=== PATIENT | female | born 1965 | race Caucasian/White ===

== ENCOUNTER 2016-06-11 18:28 | Inpatient (IN) | payer OTHER ==
[~2016-06-11] VITALS: Ht 149.9 cm; Wt 104.3 kg
[~2016-06-11 18:28] MED LIST: ANBESOL12 ML AD; BENTYL 10 MG CA10 MG PO; BENTYL10 MG PO; BENTYL20 MG PO; BENZONATATE100 MG PO; CATAPRES 0.1MG0.1 M1 PO; CITRATE OF1.75 GM/30 PO; CLEOCIN HCL300 MG PO; CLONIDINE0.1 MG PO; COMPAZINE10 MG PO; CYMBALTA 20 MG20 MG PO; CYMBALTA60 M1 PO; DULOXETINE30 MG PO; FLEXERIL10 MG PO; HYDROXYZINE50 MG PO; KEFLEX500 MG PO; LASIX20 MG PO; LEVSIN/SL0.125 MG SL; LOTRISONE CREAM45 GM TOP; MACROBID100 MG PO; METFORMIN500 MG PO; MIRALAX17 GM PO; NABUMETONE500 MG PO; NEOMYCIN-POLYMY10 ML AD; NORFLEX100 MG PO; NUCYNTA100 MG PO; NUCYNTA50 MG PO; NYSTATIN100000 U/2 TOP; ONDANSETRON HYDR4 MG PO; OXYCODONE5 MG PO; PANTOPRAZOLE SO40 M1 PO; PERCOCET 325 MG1 TA2 PO; PROTONIX 20MG T20 MG PO; QUETIAPINE FUM100 MG PO; QUETIAPINE FUM200 MG PO; REGLAN10 MG PO; SEROQUEL 100MG100 MG PO; SEROQUEL300 MG PO; TESSALON PERLE100 M1 PO; TESSALON PERLE100 MG PO; TRAMADOL50 MG PO; TRAZODONE50 MG PO; VISTARIL50 M1 PO; VISTARIL50 MG PO; ZOFRAN ODT4 MG PO; ZOFRAN4 M1 PO; ZOFRAN4 M1 SL
--- NOTE | 2016-06-11 18:40 | NUR ---
PT TO ED "FOR ADMISSION FOR CELLULITIES, THEY WANTED TO ADMIT ME EARLIER BUT I DIDNT HAVE TIME SO NOW IM HERE" PT PRESENTS WITH BILATERAL LOWER LEG REDNESS, SWELLING AND PAIN. PT DENIES FEVER, SOB, CURRIE, REPORTING SHE HAS HAD LEG SWELLING AND REDNESS FOR "A LONG TIME BUT I GUESS THEY WANTED TO ADMIT ME TODAY" PT REQUESTING A "PRIVATE ROOM UPSTAIRS, AND I NEED TO BE DIRECTLY ADMITTED I CANT WAIT, DIDNT YOU KNOW I WAS COMING?" PT EDUCATED ON ER PROCESS, DEESCALATED IN TRIAGE. PT REQUESTING TO ONLY SEE DR. ARAIZA.
--- NOTE | 2016-06-11 20:30 | NUR ---
PT WALKING AROUND BY CAREY A, IN NAD
--- NOTE | 2016-06-11 21:07 | ED UPPER/LOWER EXTREMITY COMPL ---
History of Present Illness General Chief Complaint: Lower Extremity Problems Stated Complaint: STATES HERE TO BE ADMITTED FOR BILAT LE CELLULITIS Source: patient Exam Limitations: no limitations Vital Signs & Intake/Output Vital Signs & Intake/Output Vital Signs Date Time Temp Pulse Resp B/P Pulse O2 O2 Flow FiO2 Ox Delivery Rate 06/11 2100 Room Air 06/11 1839 98.3 89 18 124/74 99 Room Air ED Intake and Output 06/12 0000 06/11 1200 Intake Total 0 Output Total Balance 0 Intake, Oral 0 Patient 230 lb Weight Allergies Coded Allergies: Sulfa (Sulfonamide Antibiotics) (Intermediate, RASH, BUT OK WITH BACTRIM ) cephalexin (From Keflex) (Intermediate, RASH/ANKLE SWELLING 06/11/16) influenza virus vaccine tv 2013-(18-49 yrs),rcmb (From Flublok) (Intermediate, RASH/SWELLING 06/11/16) pneumococcal vaccine (From Pneumovax 23) (Intermediate, RASH/SWELLING 06/11/16) acetaminophen (From Tylenol) (Severe, INCREASES LIVER ENZYMES 06/11/16) erythromycin base (Intermediate, GI UPSET 06/11/16) ibuprofen (Intermediate, GI UPSET 06/11/16) ketorolac (From Toradol) (Intermediate, GI UPSET 06/11/16) naproxen (Intermediate, GI UPSET 06/11/16) Reconcile Medications Benzonatate (Tessalon Perle) 100 MG CAPSULE 1 CAP PO TID PRN COUGH Dicyclomine Hydrochloride (Bentyl) 10 MG CAPSULE 20 MG PO TID ABD CRAMPING ( Reported) Duloxetine HCl (Cymbalta) 60 MG CAPSULE.DR 2 CAP PO QPM DEPRESSION (Reported) Furosemide (Lasix) 40 MG TABLET 1 TAB PO BID DIURETIC (Reported) Hydroxyzine Pamoate (Vistaril) 50 MG CAPSULE 2 CAP PO TID ANXIETY (Reported) Insulin Glargine,Hum.rec.anlog (Lantus Solostar) 100 UNIT/ML (3 ML) INSULN.PEN 10 UNIT SC QAM DM (Reported) Insulin Glargine,Hum.rec.anlog (Lantus Solostar) 100 UNIT/ML (3 ML) INSULN.PEN 15 UNITS SC QPM DM (Reported) Metformin HCl (Glucophage) 1,000 MG TABLET 1 TAB PO BID DM (Reported) Methadone HCl 10 MG/ML ORAL.CONC 75 MG PO DAILY CHRONIC PAIN (Reported) Neomycin/Polymyxin B Sulf/Hc (Wjwjjdad-Yhjhziime-Lt Ear Soln) 3.5 MG/ML-10,000 UNIT/ML-1 % SOLUTION 4 DROP AD TID PRN EAR INFECTION Pantoprazole Sodium 40 MG TABLET.DR 1 TAB PO DAILY AC GI (Reported) Potassium Chloride 10 MEQ TABLET.ER 1 TAB PO BID SUPPLEMENT (Reported) Quetiapine Fumarate 400 MG TABLET 1 TAB PO QPM SLEEP/MENTAL HEALTH (Reported) Quetiapine Fumarate 100 MG TABLET 1 TAB PO QAM MENTAL HEALTH (Reported) Trazodone HCl 150 MG TABLET 2 TAB PO QHS SLEEP/MENTAL HEALTH (Reported) Triage Note: PT TO ED "FOR ADMISSION FOR CELLULITIES, THEY WANTED TO ADMIT ME EARLIER BUT I DIDNT HAVE TIME SO NOW IM HERE" PT PRESENTS WITH BILATERAL LOWER LEG REDNESS, SWELLING AND PAIN. PT DENIES FEVER, SOB, CURRIE, REPORTING SHE HAS HAD LEG SWELLING AND REDNESS FOR "A LONG TIME BUT I GUESS THEY WANTED TO ADMIT ME TODAY" PT REQUESTING A "PRIVATE ROOM UPSTAIRS, AND I NEED TO BE DIRECTLY ADMITTED I CANT WAIT, DIDNT YOU KNOW I WAS COMING?" PT EDUCATED ON ER PROCESS, DEESCALATED IN TRIAGE. PT REQUESTING TO ONLY SEE DR. ARAIZA. Triage Nurses Notes Reviewed? yes Onset: Gradual Duration: week(s): (3-4) Timing: recent history Severity: moderate Pain/Injury Location: Bilateral: Knee. No Modifying Factors: none HPI: 51-year-old female with history of diabetes who presents to the ER chief complaint of bilateral lower 70 cellulitis with open wounds. She states she was seen at the wound care center and told by Dr. Smith vascular surgery to be admitted to the hospital. She is recently status post completion of outpatient antibiotics clindamycin. Denies any fever or chills. Her sugar has been hard to maintain. Patient states that she has increasing pain. She does take liquid methadone daily from the [facility]. Past History Travel History Traveled to [place] past 21 day No Medical History Any Pertinent Medical History? 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 No Review of Systems Review of Systems Constitutional: Denies: chills, fever. EENTM: Reports: no symptoms. Respiratory: Denies: cough, short of breath. Cardiovascular: Denies: chest pain. Gastrointestinal/Abdominal: Denies: abdominal pain. Genitourinary: Reports: no symptoms. Musculoskeletal: Reports: no symptoms. Skin: Reports: no symptoms. Neurological/Psychological: Reports: no symptoms. Hematologic/Endocrine: Denies: bruising, bleeding, polyuria, polydipsia. Immunological: Denies: splenectomy. All Other Systems: Reviewed and Negative Physical Exam Physical Exam General Appearance: well developed/nourished, alert, awake, mild distress Head: atraumatic Eyes: Bilateral: PERRL, EOMI. Ears, Nose, Throat: normal pharynx, normal ENT inspection, hearing grossly normal Neck: normal inspection, supple Cardiovascular/Respiratory: regular rate/rhythm Peripheral Pulses: 2+ radial (R), 2+ radial (L) Gastrointestinal: SOFT NONTENDER, OBESE Back: normal inspection Leg Left: swelling, tenderness, CELLULITIC Leg Right: swelling, tenderness, CELLULITIC Hip Left: normal range of motion Hip Right: normal range of motion Knee Left: normal range of motion Knee Right: normal range of motion Neurologic/Tendon: normal sensation, normal motor functions, normal tendon functions Skin: intact, normal color, warm/dry Lymphatic: no anterior cervical luisa Progress Differential Diagnosis: cellulitis, UNCONTROLLED DM, CHRONIC LE WOUNDS Plan of Care: Orders Procedure Date/time Status Consistent Carbohydrate 3 06/12 B Active Saline Lock 06/11 2310 Active Pathway - chart 06/11 231 Active House Staff 06/11 231 Active Patient Data 06/11 2233 Active Admit to inpatient 06/12 2223 Active Code Status 06/12 2223 Complete Code Status 06/12 2223 Active EKG 06/11 2154 Active BLOOD CULTURE 06/11 2117 Active URINALYSIS 06/11 2117 Active COMPREHENSIVE METABOLIC PANEL 06/11 2117 Complete CBC WITHOUT DIFFERENTIAL 06/11 2117 Complete Intake & Output 06/11 2054 Active Current Medications Sig/Melody Start time Last Medication Dose Stop Time Status Admin Cefazolin Sodium 1,000 MG IQ8 06/12 0800 UNVr (Kefzol-Ancef Inj) Heparin Sodium 5,000 UNIT Q8 06/12 0600 AC (Porcine) Morphine Sulfate 2 MG Q4P PRN 06/11 231 AC (Morphine) Laboratory Tests 06/11/162200: Anion Gap 10, Estimated GFR 37 L, BUN/Creatinine Ratio 16.7, Glucose 137 H, Calcium 8.4, Total Bilirubin 0.3, AST 62 H, ALT 66 H, Alkaline Phosphatase 113 , Total Protein 7.2, Albumin 3.7, Globulin 3.5, Albumin/Globulin Ratio 1.1, CBC w Diff NO MAN DIFF REQ, RBC 4.02 L, MCV 81.4, MCH 26.6 L, RDW 13.9, MPV 6.7 L , Gran % 53.7, Lymphocytes % 36.9, Monocytes % 6.7, Eosinophils % 2.5, Basophils % 0.2, Absolute Granulocytes 3.2, Absolute Lymphocytes 2.2, Absolute Monocytes 0.4, Absolute Eosinophils 0.1, Absolute Basophils 0, PUBS MCHC 32.7 L Microbiology 06/11 2213 BLOOD: Blood Culture - RECD 06/11 2200 BLOOD: Blood Culture - RECD Initial ED EKG: NSR Departure Departure Time of Disposition: 2225 Disposition: STILL A PATIENT Condition: Stable Clinical Impression Primary Impression: Cellulitis Referrals: ELIZABETH PASTOR MD (PCP/Family) Departure Forms: Customer Survey General Discharge Information Admission Note Spoke With: LYNN CAICEDO MD Documentation of Exam: Documentation of any treatments & extenuating circumstances including Concerns Regarding Discharge (functional status, medication knowledge or non-compliance, living conditions, etc.) that warrant an admission rather than observation: [IV ABX (PATIENT FAILED OUTPATIENT ABX), WOUND CARE, WOUND CARE CONSULT, DIABETIC MANAGEMENT, CONSIDER VASCULAR CONSULT]
[2016-06-11] MEDS ORDERED: BENTYL10 M1 PO (21:32)
[2016-06-11] MEDS ORDERED: LASIX40 M1 PO (21:33)
[2016-06-11] MEDS ORDERED: METHADONE10 MG/1 M2 PO (21:37)
[2016-06-11] MEDS ORDERED: QUETIAPINE FUM400 M1 PO (21:38)
[2016-06-11] MEDS ORDERED: QUETIAPINE FUM100 M1 PO (21:38)
[2016-06-11] MEDS ORDERED: POTASSIUM CHLO10 ME4 PO (21:40)
[2016-06-11] MEDS ORDERED: TRAZODONE HCL150 M1 PO (21:41)
[2016-06-11] MEDS ORDERED: LANTUS SOL100 UNIT/1 SC ×2 (21:42→21:43)
[2016-06-11] MEDS ORDERED: GLUCOPHAGE1000 M1 PO (21:44)
--- NOTE | 2016-06-11 22:05 | NUR ---
LABS DRAWN AND SENT
[2016-06-11 22:09] LABS: ABSOLUTE BASOPHIL COUNT 0 /CUMM (0.0-0.2); ABSOLUTE EOSINOPHIL COUNT 0.1 /CUMM (0.0-0.7); ABSOLUTE GRANULOCYTE CT 3.2 /CUMM (1.4-6.5); ABSOLUTE LYMPH COUNT 2.2 /CUMM (1.2-3.4); ABSOLUTE MONOCYTE COUNT 0.4 /CUMM (0.10-0.60); BASOPHIL % 0.2 % (0.0-2.0); EOSINOPHIL % 2.5 % (0-5); GRANULOCYTE % 53.7 % (42.2-75.2); HEMATOCRIT 32.7 % (37-47); MEAN CORPUSCULAR HGB 26.6 PG (27.0-31.0); MEAN CORPUSCULAR HGB CONC 32.7 G/DL (33.0-37.0); MEAN CORPUSCULAR VOLUME 81.4 FL (81.0-99.0); MEAN PLATELET VOLUME 6.7 FL (7.4-10.4); PLATELET COUNT 200 /CUMM (130-400); RBC DISTRIBUTION WIDTH 13.9 % (11.5-14.5); RED BLOOD CELL CT 4.02 /CUMM (4.20-5.40); WHITE BLOOD CELL COUNT 5.9 /CUMM (4.8-10.8)
--- NOTE | 2016-06-11 23:09 | NUR ---
BED ASSIGNMENT [id number]
--- NOTE | 2016-06-11 23:09 | History & Physical ---
DMITRI CACERES 06/11/16 3109: General Information and HPI MD Statement: I have seen and personally examined LES MOREL and documented this H&P. The patient is a 51 year old F who presented with a patient stated chief complaint of bilateral lower extremity redness, swelling and pain. Source of Information: patient, old records Exam Limitations: no limitations History of Present Illness: This is a 51-year-old female with past medical history significant for colitis, diverticulitis, pancreatitis, esophagitis, insomnia, GERD, abdominal cramps, depression, anxiety, chronic bilateral lower extremity edema, diabetes mellitus, opioid abuse, chronic back pain chronic pain on methadone presented to emergency department with chief complaint of bilateral lower extremity redness, swelling, pain worsening for 2 days. According to the patient, she was treated for cellulitis 3 weeks ago with outpatient antibiotics clindamycin for 10 days. She has been following Dr. Albarran at [facility] [place] for chronic bilateral lower extremity edema. She was supposed to use compression stockings, however she is not using them because of discomfort. She was seen by Dr. Preston, the vascular surgeon this morning for chronic lower extremity edema and she was advised to go to ER to get IV antibiotics for cellulitis as she failed outpatient therapy with clindamycin. According to the patient, she has ongoing chronic bilateral lower extremity edema associated with redness, swelling, throbbing pain associated with tingling sensation for 3 weeks. She noticed 2 new wounds which were draining. She denies any fever, chills. She denies any trauma. However she does report scratching her lower legs. off note she was treated for cellulitis with antibiotics as an outpatient 3 times in the past year. She denies any chest pain, racing of heart, shortness of breath, cough, headache , numbness, tingling sensation, weakness or sensory changes, nausea, vomiting, abdominal pain, change in bladder or bowel habits. She denies any sick contacts or travel history. She denies any trauma, injuries, accidents. Allergies/Medications Allergies: Coded Allergies: Sulfa (Sulfonamide Antibiotics) (Intermediate, RASH, BUT OK WITH BACTRIM ) cephalexin (From Keflex) (Intermediate, RASH/ANKLE SWELLING 06/11/16) influenza virus vaccine tv 2012-(18-49 yrs),rcmb (From Flublok) (Intermediate, RASH/SWELLING 06/11/16) pneumococcal vaccine (From Pneumovax 23) (Intermediate, RASH/SWELLING 06/11/16) acetaminophen (From Tylenol) (Severe, INCREASES LIVER ENZYMES 06/11/16) erythromycin base (Intermediate, GI UPSET 06/11/16) ibuprofen (Intermediate, GI UPSET 06/11/16) ketorolac (From Toradol) (Intermediate, GI UPSET 06/11/16) naproxen (Intermediate, GI UPSET 06/11/16) Compliance With Home Meds: GOOD Past History Travel History Traveled to [place] past 21 day No Medical History Neurological: NONE EENT: NONE Cardiovascular: NONE Respiratory: pneumonia Gastrointestinal: colitis, diverticulitis, pancreatitis, ACID REFLUX C DIFF LA grade B esophagitis, erosive gastropathy Hepatic: NONE Renal: NONE Musculoskeletal: NONE Psychiatric: NARCOTIC ABUSE CHRONIC PAIN MANAGEMENT Endocrine: NONE Blood Disorders: NONE Cancer(s): NONE 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 EENTM: Denies: no symptoms. Cardiovascular: Reports: edema. Denies: chest pain, orthopena, palpitations, peripheral edema. Respiratory: Denies: cough, hemoptysis, orthopnea, short of breath, sputum production, stridor, wheezing. GI: Denies: abdominal pain, bloating, constipation, diarrhea, nausea. Genitourinary: Denies: discharge, dysuria, frequency, hematuria. Musculoskeletal: Reports: back pain. Skin: Reports: change in skin color, erythema, lesions. Neurological/Psychological: Denies: anxiety, depressed, dementia, headache, numbness. Exam & Diagnostic Data Last 24 Hrs of Vital Signs/I&O Vital Signs Date Time Temp Pulse Resp B/P Pulse O2 O2 Flow FiO2 Ox Delivery Rate 06/12 0152 97.8 102 20 110/70 96 Room Air 06/11 2100 Room Air 06/11 1839 98.3 89 18 124/74 99 Room Air Intake & Output 06/12 0800 06/12 0000 06/11 1600 Intake Total 0 Output Total Balance 0 Intake, Oral 0 Patient 104.326 kg 104.326 kg Weight Physical Exam General Appearance Alert, Oriented X3, Cooperative, No Acute Distress Skin No Rashes, No Breakdown HEENT Atraumatic, PERRLA, EOMI, Mucous Membr. moist/pink Neck Supple, No JVD Lymphatic Axillary nl, Cervical nl Cardiovascular Regular Rate, Normal S1, Normal S2, No Murmurs Lungs Clear to Auscultation, Normal Air Movement Abdomen Normal Bowel Sounds, Soft, No Tenderness Neurological Strength at 5/5 X4 Ext, Normal Tone, Sensation Intact, Cranial Nerves 3-12 NL, Reflexes 2+ Extremities No Clubbing, No Cyanosis, Normal Pulses, bilateral lower extremity edema, redness, swelling, warmth. Vascular Normal Pulses, Pulses Symmetrical Last 24 Hrs of Labs/Toby: Laboratory Tests 06/12/16 0055: Urine Color STRAW, Urine Clarity CLEAR, Urine pH 7.0, Ur Specific [place] 1.010, Urine Protein NEG, Urine Ketones NEG, Urine Nitrite NEG, Urine Bilirubin NEG, Urine Urobilinogen 0.2, Ur Leukocyte Esterase NEG, Ur Microscopic EXAM NOT REQUIRED, Urine Hemoglobin NEG, Urine Glucose NEG 06/11/162200: Anion Gap 10, Estimated GFR 37 L, BUN/Creatinine Ratio 16.7, Glucose 137 H, Lactic Acid 2.3 H, Calcium 8.4, Iron 56, TIBC 346, Ferritin 19.3, Total Bilirubin 0.3, AST 62 H, ALT 66 H, Alkaline Phosphatase 113, Total Protein 7.2 , Albumin 3.7, Globulin 3.5, Albumin/Globulin Ratio 1.1, CBC w Diff NO MAN DIFF REQ, RBC 4.02 L, MCV 81.4, MCH 26.6 L, RDW 13.9, MPV 6.7 L, Gran % 53.7, Lymphocytes % 36.9, Monocytes % 6.7, Eosinophils % 2.5, Basophils % 0.2, Absolute Granulocytes 3.2, Absolute Lymphocytes 2.2, Absolute Monocytes 0.4, Absolute Eosinophils 0.1, Absolute Basophils 0, PUBS MCHC 32.7 L Microbiology 06/11 2213 BLOOD: Blood Culture - RECD 06/11 2200 BLOOD: Blood Culture - RECD Assessment/Plan Assessment: This is a 51-year-old female with past medical history significant for colitis, diverticulitis, pancreatitis, esophagitis, insomnia, GERD, abdominal cramps, depression, anxiety, chronic bilateral lower extremity edema, diabetes mellitus, opioid abuse, chronic back pain chronic pain on methadone presented to emergency department with chief complaint of bilateral lower extremity redness, swelling, pain worsening for 2 days. According to the patient, she was treated for cellulitis 3 weeks ago with outpatient antibiotics clindamycin for 10 days. She has been following Dr. Albarran at [facility] for chronic bilateral lower extremity edema. She was supposed to use compression stockings, however she is not using them because of discomfort. She was seen by Dr. Preston, the vascular surgeon this morning for chronic lower extremity edema and she was advised to go to ER to get IV antibiotics for cellulitis as she failed outpatient therapy with clindamycin. Vitals on admission-afebrile, heart rate 89, respiratory rate 18, blood pressure 124/74, saturating at 99% on room air. Labs-WBC 5.9, hemoglobin 10.7. Electrolytes are normal. Creatinine 1.5. Problem list 1. Cellulitis 2. Depression 3. Anxiety 4. Chronic lower extremity edema 5. Diabetes mellitus 6. Chronic pain on methadone 7. Insomnia 8. gerd Cellulitis Patient presented with chronic bilateral lower extremity edema associated with redness, swelling, worsening pain for 2 weeks. She failed outpatient treatment for cellulitis. She was advised by vascular surgeon to get IV antibiotics for cellulitis. * Admitted to general medicine floor for further management of cellulitis * Monitor vitals * Maintain oxygen saturation above 90% * Monitor for any fever, chills, worsening redness, swelling, pain of lower extremities * IV antibiotic-cefazolin. * Blood culture and sensitivities * wound care consult in the morning * X-ray right lower extremity to rule out any osteomyelitis Depression Continue home dose of duloxetine Anxiety On xanax when necessary for anxiety Chronic lower extremity edema Takes Lasix 40 mg twice daily at home Lasix on hold for now Diabetes mellitus Accu-Cheks before meals Continue home dose of Lantus Chronic pain Continue home dose of methadone Insomnia Takes trazodone at bedtime DVT prophylaxis heparin Full code Regular diet Pain management-on methadone As Ranked By This Provider Problem List: 1. Cellulitis of lower extremity 2. Edema, lower extremity 3. Cellulitis Core Measures/Miscellaneous Acute Coronary Syndrome ACS Diagnosis: No Cerebrovascular Accident CVA/TIA Diagnosis: No Congestive Heart Failure CHF Diagnosis: No Venous Thromboembolism VTE Risk Factors: Age > 40, Obesity [facility] prophylaxis d/t: No contraindications No VTE Pharm Prophylaxis d/t: No contraindications VTE Diagnosis: No VTE Type: NONE VTE Confirmed by (Test): NONE Severe Sepsis Severe Sepsis Present: No Septic Shock Septic Shock Present: No Miscellaneous Documentation Attending Case Discussed With: LYNN CAICEDO MD Primary Care Physician: ELIZABETH PASTOR MD Patient sees these Specialists wound doctor Level of Patient Care: General Medicine ALLISON CERRATO,MARIBELL 06/12/16 3860: General Information and HPI Allergies/Medications Home Med list Benzonatate (Tessalon Perle) 100 MG CAPSULE 1 CAP PO TID PRN COUGH Dicyclomine Hydrochloride (Bentyl) 10 MG CAPSULE 20 MG PO TID ABD CRAMPING ( Reported) Duloxetine HCl (Cymbalta) 60 MG CAPSULE.DR 1 CAP PO QPM DEPRESSION (Reported) Furosemide (Lasix) 40 MG TABLET 1 TAB PO BID DIURETIC (Reported) Hydroxyzine Pamoate (Vistaril) 50 MG CAPSULE 2 CAP PO TID ANXIETY (Reported) Insulin Glargine,Hum.rec.anlog (Lantus Solostar) 100 UNIT/ML (3 ML) INSULN.PEN 10 UNIT SC QAM DM (Reported) Insulin Glargine,Hum.rec.anlog (Lantus Solostar) 100 UNIT/ML (3 ML) INSULN.PEN 15 UNITS SC QPM DM (Reported) Metformin HCl (Glucophage) 1,000 MG TABLET 1 TAB PO BID DM (Reported) Methadone HCl 10 MG/ML ORAL.CONC 75 MG PO DAILY CHRONIC PAIN (Reported) Neomycin/Polymyxin B Sulf/Hc (Kvjttmvu-Hbamkcpnm-Dh Ear Soln) 3.5 MG/ML-10,000 UNIT/ML-1 % SOLUTION 4 DROP AD TID PRN EAR INFECTION Pantoprazole Sodium 40 MG TABLET.DR 1 TAB PO DAILY AC GI (Reported) Potassium Chloride 10 MEQ TABLET.ER 1 TAB PO BID SUPPLEMENT (Reported) Quetiapine Fumarate 400 MG TABLET 1 TAB PO QPM SLEEP/MENTAL HEALTH (Reported) Quetiapine Fumarate 100 MG TABLET 1 TAB PO QAM MENTAL HEALTH (Reported) Trazodone HCl 150 MG TABLET 2 TAB PO QHS SLEEP/MENTAL HEALTH (Reported) Resident Review Statement Resident Statement: examined this patient, discussed with international project manager, agreed with international project manager, discussed with family, reviewed EMR data (avail), discussed with nursing , discussed with case mgmt, reviewed images, amended to note Other Findings: 51-year-old woman with a medical history of opioid abuse GERD chronic back pain type 2 diabetes colitis articular is clear that his GERD esophagitis pneumonia presents with bilateral lower extremity "cellulitis" that apparently failed outpatient therapy with clindamycin. It appears that she has chronic long- standing venous insufficiency and lower extremity dependent edema. An associated skin changes. She was at her vascular surgeon's office who thought she may have cellulitis. Her PCP is aware of medication and so when she sought medical attention in the ER. We do not suspect this to actually be cellulitis, however there is a possibility of inoculation as the patient has been scratching and instrumenting the skin of the lower extremities. She has a serous output from 2 times sized punctate wounds. The area is warm and erythematous. We will admit her to general medicine treat her with intravenous. Cefazolin. Await blood cultures. Cont. methadone (home dose). DVT prophylaxis with heparin. Full code. MARIFER,AARTEE 06/12/16 0530: Attending MD Review Statement Attending Statement Attending MD Statement: examined this patient, discuss w/resident/PA/CONCRETE PLACEMENT EQUIPMENT OPERATOR, agreed w/resident/PA/CONCRETE PLACEMENT EQUIPMENT OPERATOR, reviewed EMR data (avail), reviewed images, amended to note Attending Assessment/Plan: CC: Sent by wound clinic for lower extremity cellulitis PMH: Opiate abuse, GERD, chronic back pain, DM, anxiety, depression Patient had recurrent lower extremity swelling and redness, has been treated 3 times so far with clindamycin in last 8 months for cellulitis. She was following up with wound care clinic. They noticed 2 new small wounds one on each lower extremity and small pus discharge from right sided wound. No fever, chills, nausea, vomiting, new trauma, pets. Her blood sugar control is not good at home according to her, she cheats on diet, fasting blood sugar 180-200, post lunch 200-300. Vitals: Afebrile, pulse, RRR, BP, O2 saturation acceptable range. On exam: A O 3, morbidly obese, neck supple, no JVD, no lymphadenopathy, mucosa moist, no focal neurological deficit, bilateral lower extremity nonpitting edema. CVS: S1- S2, RRR. RS: Clear to auscultate bilaterally. Abdomen: Soft, NT, ND, bowel sounds present. Bilateral lower extremity shows chronic stasis changes with additional mild inflammatory changes on right lower extremity with superficial wound with a spot of pus, no additional fluctuation noticed. Labs: Hemoglobin 10.7 dropped from 12.3 from June 2015, creatinine 1.5, increased from 0.9 from October 2015. Bicarbonate 37, BUN 25, glucose 137, lactate 2.3, AST 62, ALT 66 A and P #1 right lower extremity cellulitis with chronic stasis changes: Failed outpatient treatment, recently completed clindamycin for 10 days, Continue IV cefazolin, x-ray right lower extremity, wound care consult, blood cultures, pain control with home doses of methadone with when necessary Percocet. Trend lactate , BEP, CBCs in a.m. #2 on and off bilateral lower extremity swelling with chronic stasis changes obtain 2-D echo to rule out any underlying heart failure. #3 anemia: Unclear if blood loss versus anemia of chronic disease, patient admits on and off rectal blood loss since last few months. Obtain iron studies. #4 elevated creatinine to 1.5: Baseline 0.9, patient has history of diabetes patient was started on Lasix 20 twice a day few months back and was increased dose to 40 mg by mouth twice a day 2 weeks back, volume contraction may be contributing to elevated creatinine, gentle hydration, hold Lasix. #5 continue all her home medications for anxiety depression including Seroquel and methadone, duloxetine, hold trazodone, when necessary Xanax, DVT prophylaxis with Lovenox. #6 continue Levemir 10 units twice a day, sliding scale short-acting insulin, hold metformin, previous hemoglobin A1c 9.7 and June 2015. counselled regarding strict blood sugar control.
--- NOTE | 2016-06-11 23:15 | NUR ---
FLOOR NURSE IN REPORT, WILL CALL BACK
--- NOTE | 2016-06-11 23:25 | NUR ---
EKG DONE IN [place] AND SHOWN TO DR. GARCIA.
--- NOTE | 2016-06-12 | NUR ---
HOUSE STAFF HER TO EVAL AND WRITE ORDERS. REQUESTING SOMETHING TO EAT AND SOMETHING FOR THE PAIN AND STINGING IN HER LEGS. HOUSE STAFF AT BEDSIDE AND AWARE.
--- NOTE | 2016-06-12 00:39 | NUR ---
REPORT CALLED TO NANCY PENDLETON
[2016-06-12 01:52] VITALS: BP 110/70
--- NOTE | 2016-06-12 03:07 | NUR ---
PT ARRIVED TO FLOOR AT 0125 VIA STRETCHER. A&OX3, ON RA, LUNGS CLEAR VITALS STABLE. CELLULITIS TO BILATERL LOWER EXTREMITIES RED/SWOLLEN AND FLAKY WITH SCAB NOTED TO RT SHAH. PT AMBULATED INDEPENDENTLY. ON IV FLUIDS. SKIN OTHERWISE INTACT. PT STATES SHE HAS ANXIETY AND WOULD LIKE SOMETHING THROUGH IV, PER EMAR AND ORDERS, ONE TIME DOSE OF XANAX 0.5MG PO ORDERED. PT REFUSES AND STATES SHE NEEDS XANAX 2MG AND HER TRAZADONE, CYMBALTA AND SEROQUEL. PER MD CACERES, SHE IS NOT GOING TO ORDER TRAZADONE AND NOT GOING TO INCREASE XANAX DOSE TO 2MG. PT INFORMED, PT STATES "IF MY MEDS ARE NOT ORDERED, I AM GOING TO TAKE MY OWN MEDICATIONS, I NEED MY TRAZADONE AND XANAX 2MG". MADE AWARE AND SUGGESTED TO COME TO BEDSIDE TO SPEAK WITH PT. AWAITING MD. WILL FOLLOW UP.
--- NOTE | 2016-06-12 03:58 | NUR ---
PT THREATENING TO TAKE HER HOME MEDICATIONS, TRAZADONE, IF THE DR DOES NOT ORDER HER MEDICATIONS. MORRIS CERRATO TO BEDSIDE TO SPEAK WITH PT ABOUT HER MEDICATIONS. ORDRED ONE TIME DOSE OF XANAX 1MG AND TRAZADONE. THIS RN ASKED FOR PATIENTS MEDICATIONS TO BE KEPT IN MED ROOM ON UNIT. PT REFUSES, MATRIX PLATER DEYVI ASKED PT ALSO, PT STILL REFUSES. PER PT "I PROMISE I WON'T TAKE THEM HERE IF I HAVE MY MEDICATIONS ORDERED".
--- NOTE | 2016-06-12 05:32 | Admission Certification ---
Admission Certification Certification Statement - As attending physician, I certify that at the time of - admission, based on clinical presentation, severity of - symptoms, need for further diagnostic testing and - therapeutic interventions, and risk of adverse outcomes - without in-hospital treatment, in my clinical assessment, - this patient requires an acute hospital stay for a minimum - of two nights or longer. I have also considered psychsocial - factors such as support system, advanced age, financial - issues, cognitive issues, and failed out-patient treatments, - past re-admission history, safety of patient, and lack of - compliance as applicable. Specific rationale supporting this admission is: Right lower extremity cellulitis, failed outpatient treatment.
[2016-06-12 06:55] VITALS: BP 118/60
[2016-06-12 08:15] LABS: ABSOLUTE BASOPHIL COUNT 0 /CUMM (0.0-0.2); ABSOLUTE EOSINOPHIL COUNT 0.2 /CUMM (0.0-0.7); ABSOLUTE GRANULOCYTE CT 2.6 /CUMM (1.4-6.5); ABSOLUTE LYMPH COUNT 2.2 /CUMM (1.2-3.4); ABSOLUTE MONOCYTE COUNT 0.5 /CUMM (0.10-0.60); BASOPHIL % 0.2 % (0.0-2.0); EOSINOPHIL % 2.8 % (0-5); GRANULOCYTE % 48.1 % (42.2-75.2); HEMATOCRIT 29.9 % (37-47); MEAN CORPUSCULAR HGB 26.9 PG (27.0-31.0); MEAN CORPUSCULAR HGB CONC 33.1 G/DL (33.0-37.0); MEAN CORPUSCULAR VOLUME 81.2 FL (81.0-99.0); MEAN PLATELET VOLUME 7.1 FL (7.4-10.4); PLATELET COUNT 160 /CUMM (130-400); RBC DISTRIBUTION WIDTH 14.2 % (11.5-14.5); RED BLOOD CELL CT 3.68 /CUMM (4.20-5.40); WHITE BLOOD CELL COUNT 5.4 /CUMM (4.8-10.8)
--- NOTE | 2016-06-12 08:36 | PN- Housestaff ---
SOLEDAD CERRATO,APRIL 06/12/16 0836: Subjective Follow-up For: cellulitis Complaints: pain scale (0-10) (11/24) Subjective: Patient was very drowy this morning, and she fell asleep during conversation. She c/o bilateral leg pain 10, and she asked how long she would stay in the hospital. Otherwise, she denies any fever/chills, chest pain or shortness of breath. Review of Systems Constitutional: Denies: chills, fever, weakness. EENTM: Reports: no symptoms. Cardiovascular: Reports: peripheral edema. Denies: chest pain, palpitations. Respiratory: Denies: cough, short of breath, sputum production, wheezing. Gastrointestinal: Denies: abdominal pain, nausea, vomiting. Genitourinary: Reports: no symptoms. Musculoskeletal: Reports: no symptoms. Skin: Reports: see HPI, change in skin color, erythema, lesions. Neurological/Psychological: Reports: anxiety, confusion. Hematologic/Endocrine: Reports: no symptoms. Objective Last 24 Hrs of Vital Signs/I&O Vital Signs Date Time Temp Pulse Resp B/P Pulse O2 O2 Flow FiO2 Ox Delivery Rate 06/12 0655 99.4 103 20 118/60 92 Room Air 06/12 0152 97.8 102 20 110/70 96 Room Air 06/11 2100 Room Air 06/11 1839 98.3 89 18 124/74 99 Room Air Intake & Output 06/12 1600 06/12 0800 06/12 0000 Intake Total 950 0 Output Total Balance 950 0 Intake, IV 750 Intake, Oral 200 0 Number 0 Bowel Movements Patient 230 lb 230 lb Weight Physical Exam General Appearance: No Acute Distress, drowsy Skin: bilateral LE erythema with warmness HEENT: Atraumatic, PERRLA, EOMI, Mucous Membr. moist/pink Neck: Supple, No JVD, No LAD Lymphatic: Cervical nl Cardiovascular: Regular Rate, Normal S1, Normal S2, No Murmurs Lungs: Clear to Auscultation, Normal Air Movement Abdomen: Normal Bowel Sounds, Soft, No Tenderness Neurological: Normal Speech, Normal Tone, Cranial Nerves 3-12 NL Extremities: Normal Pulses, chronic venous stasis Vascular: Normal Pulses, Pulses Symmetrical Current Medications: Current Medications Sig/Melody Start time Last Medication Dose Route Stop Time Status Admin Acetaminophen 650 MG Q6P PRN 06/12 0045 AC PO Alprazolam 1 MG ONCE ONE 06/12 0345 DC 06/12 PO 06/12 0346 0351 Alprazolam 0.5 MG ONCE ONE 06/12 0200 DC PO 06/12 0201 Ampicillin Sodium/ 0 .STK-MED ONE 06/11 2335 DC Sulbactam Sodium .ROUTE Ampicillin Sodium/ 3,000 MG ONCE ONE 06/11 2130 DC 06/11 Sulbactam Sodium IV 06/11 2159 2338 Sodium Chloride 100 ML Cefazolin Sodium 1,000 MG IQ8 06/12 0800 AC 06/12 IV 0845 Diphenhydramine HCl 25 MG Q6P PRN 06/12 0045 AC IV Duloxetine HCl 60 MG AT BEDTIME 06/12 220 AC PO Duloxetine HCl 60 MG DAILY 06/12 0200 DC 06/12 PO 06/12 0201 0254 Heparin Sodium 5,000 UNIT Q8 06/12 0600 AC 06/12 (Porcine) SC 0655 Hydroxyzine HCl 100 MG TIDPRN 06/12 1200 UNVr PO Insulin Aspart 0 TIDAC 06/12 0800 AC SC Insulin Detemir 13 UNITS BID 06/12 0042 AC 06/12 SC 1121 Methadone HCl 75 MG 0800 06/12 0800 AC PO Morphine Sulfate 2 MG Q4P PRN 06/11 2315 AC IV Oxycodone HCl 5 MG Q6P PRN 06/12 0045 AC PO Quetiapine Fumarate 400 MG AT BEDTIME 06/12 2200 AC PO Quetiapine Fumarate 100 MG QAM 06/12 1000 AC 06/12 PO 1121 Quetiapine Fumarate 400 MG ONCE ONE 06/12 0200 DC 06/12 PO 06/12 0201 0254 Sodium Chloride 1,000 ML Q13H 06/12 0515 AC 06/12 IV 06/12 1814 0543 Sodium Chloride 1,000 ML Q8H 06/11 2315 DC 06/11 IV 2338 Trazodone HCl 150 MG AT BEDTIME NEED.. 06/12 220 AC PO Trazodone HCl 300 MG ONCE ONE 06/12 0345 DC 06/12 PO 06/12 0346 0411 Trimethobenzamide HCl 200 MG TIDPRN PRN 06/12 0045 AC IM Last 24 Hrs of Lab/Toby Results Last 24 Hrs of Labs/Mics: Laboratory Tests 06/12/16 0800: Lactic Acid 2.0 06/12/16 0640: Anion Gap 7, Estimated GFR 40 L, BUN/Creatinine Ratio 20.0, Lactic Acid 2.1, CBC w Diff NO MAN DIFF REQ, RBC 3.68 L, MCV 81.2, MCH 26.9 L, RDW 14.2, MPV 7.1 L, Gran % 48.1, Lymphocytes % 40.1, Monocytes % 8.8, Eosinophils % 2.8, Basophils % 0.2, Absolute Granulocytes 2.6, Absolute Lymphocytes 2.2, Absolute Monocytes 0.5, Absolute Eosinophils 0.2, Absolute Basophils 0, PUBS MCHC 33.1 06/12/16 0055: Urine Color STRAW, Urine Clarity CLEAR, Urine pH 7.0, Ur Specific [place] 1.010, Urine Protein NEG, Urine Ketones NEG, Urine Nitrite NEG, Urine Bilirubin NEG, Urine Urobilinogen 0.2, Ur Leukocyte Esterase NEG, Ur Microscopic EXAM NOT REQUIRED, Urine Hemoglobin NEG, Urine Glucose NEG 06/11/162200: Anion Gap 10, Estimated GFR 37 L, BUN/Creatinine Ratio 16.7, Glucose 137 H, Lactic Acid 2.3 H, Calcium 8.4, Iron 56, TIBC 346, Ferritin 19.3, Total Bilirubin 0.3, AST 62 H, ALT 66 H, Alkaline Phosphatase 113, Total Protein 7.2 , Albumin 3.7, Globulin 3.5, Albumin/Globulin Ratio 1.1, CBC w Diff NO MAN DIFF REQ, RBC 4.02 L, MCV 81.4, MCH 26.6 L, RDW 13.9, MPV 6.7 L, Gran % 53.7, Lymphocytes % 36.9, Monocytes % 6.7, Eosinophils % 2.5, Basophils % 0.2, Absolute Granulocytes 3.2, Absolute Lymphocytes 2.2, Absolute Monocytes 0.4, Absolute Eosinophils 0.1, Absolute Basophils 0, PUBS MCHC 32.7 L Microbiology 06/11 2213 BLOOD: Blood Culture - RECD 06/11 2200 BLOOD: Blood Culture - RECD Lines/Diet/Fluids Lines: peripheral lines Assessment/Plan Assessment: 51 yo female with pmh of opiate abuse on methadone (75mg/d), GERD, chronic back pain, DM, anxiety, depression with chronic venous stasis was sent from wound care center for recurrent LE cellulitis failed multiple outpatient antibiotic therapy. 1. Right lower extremity cellulitis with chronic stasis: Failed multiple outpatient treatment, most recently with po clindamycin for 10 days. Afebrile, WBC 5.4, lactate was normalized. Blood cultures are pending. continue IV cefazolin, x-ray shows bilateral soft tissue swelling Lt. > Rt, no osseous erosions. follow up wound care consult, pain control with home doses of methadone with pain pathway. 2. Bilateral LE edema with chronic stasis changes: follow echo result to rule out any underlying heart failure. Hold lasix due to DIPESH. 3. Normocytic anemia: unclear etiology, guiac stool, iron studies WNL, monitor signs of active bleeding. 4. DIPESH: Baseline Cr 0.9 was increased to 1.5. She was on lasix 40mg bid and metformin as home medication. Hold lasix and oral dm medications. After IV hydration, Cr was improved to 1.4. Continue gentle IV hydration and follow up BEP. 5. anxiety/depression/opioid dependece: CTPMP was checked, and the results are in the chart. Continue home dose seroquel, methadone, and duloxetine. We decreased the dose of trazodone to 150mg HS prn and hydroxyzine 100mg TIDprn. Will check EKG for QTc prolongation. 6. DM: 7:30 am 131, continue accuchecks with diabetic diet, Levemir 13 units twice a day, novolog s/s, hold metformin, check HbA1c (last hemoglobin A1c 9.22 June 2015). DVT ppx: SC heparin, full code. Pain pathway Problem List: 1. Cellulitis of lower extremity 2. Edema, lower extremity 3. ARF Pain Ratin Pain Location: Bilateral LE, back pain Pain Goal: Pain 4 or less Pain Plan: Methadone with pain pathway Tomorrow's Labs & Rationales: CBC - normocytic anemia BEP - DIPESH DVT/Prophylaxis: pharmacological Discharge Plan Stable for Discharge? No CRIS BESS MD 06/12/16 1200: Attending MD Review Statement Attending Statement Attending MD Statement: examined this patient, discuss w/resident/PA/EQUITY MANAGER, agreed w/resident/PA/EQUITY MANAGER, reviewed EMR data (avail), discussed with nursing, discussed with case mgmt Attending Assessment/Plan: 51-year-old female chronic opiate dependence and Polypharmacy is here with cellulitis having failed multiple courses of outpatient clindamycin. Patient is drowsy, easily arousable and keeps asking only for her trazodone, her Xanax and other psychiatric medications. She has a low-grade temp of 99.4. She has got mild DIPESH and anemia of unclear etiology. We have her on IV Ancef for the cellulitis with an x-ray pending to rule out osteo. I tried to explain to her at length the risks of sedation versus the benefits. I ordered the Vistaril and the trazodone us when necessary at this point and will follow closely.
--- NOTE | 2016-06-12 10:24 | RADIOLOGY REPORT ---
EXAMINATION: XR FOOT, LEFT XR FOOT, RIGHT CLINICAL INFORMATION: Diabetic with lower extremity cellulitis. Evaluate for gas. COMPARISON: 01/29/2013 TECHNIQUE: 3 views, 4 images of the left foot. 3 views of the right foot. FINDINGS: Left foot: There is diffuse soft tissue swelling. No ankle joint effusion. No acute fracture or dislocation. Chronic appearing deformity at the fifth digit distal interphalangeal joint. No definite erosive osseous changes. There is no soft tissue gas noted. Degenerative changes are noted at the midfoot with osteophyte formation. There is hypertrophic spurring of the plantar aponeurosis and Achilles insertion to the calcaneus. Right foot: There is mild diffuse soft tissue swelling, to a lesser degree than the left foot. No soft tissue gas. No ankle joint effusion. No acute fracture or dislocation. Chronic appearing deformity of the fifth digit proximal phalanx, with osseous gap noted. This could be from prior trauma or iatrogenic. Mild degenerative changes of the midfoot with osteophyte formation. There is hypertrophic spurring of the plantar aponeurosis and Achilles insertion to the calcaneus. IMPRESSION: Bilateral soft tissue swelling, left greater than right, with no evidence for soft tissue gas. No osseous erosions. Degenerative changes with heel spurs bilaterally.
--- NOTE | 2016-06-12 15:00 | Cons- Wound Care ---
General Information and HPI Consulting Request Date of Consult: 06/12/16 Requested By: LYNN CAICEDO MD Reason for Consult: Bilateral lower extremity erythema and right lower extremity venous stasis ulcer present on admission History of Present Illness: Patient is 51-year-old morbidly obese woman with chronic venous insufficiency and venous stasis ulcers is been followed in the wound care center treated with compression. She is advised obtain elastic compression stockings which she was unable to place secondary to increased edema. Reportedly she was treated for lower extremity erythema with clindamycin for presumed cellulitis. She was seen by vascular surgery and recommended admission because of erythema she's remained afebrile is had a normal white count. Allergies/Medications Allergies: Coded Allergies: Sulfa (Sulfonamide Antibiotics) (Intermediate, RASH, BUT OK WITH BACTRIM ) cephalexin (From Keflex) (Intermediate, RASH/ANKLE SWELLING 06/11/16) influenza virus vaccine tv 2013-(18-49 yrs),rcmb (From Flublok) (Intermediate, RASH/SWELLING 06/11/16) pneumococcal vaccine (From Pneumovax 23) (Intermediate, RASH/SWELLING 06/11/16) acetaminophen (From Tylenol) (Severe, INCREASES LIVER ENZYMES 06/11/16) erythromycin base (Intermediate, GI UPSET 06/11/16) ibuprofen (Intermediate, GI UPSET 06/11/16) ketorolac (From Toradol) (Intermediate, GI UPSET 06/11/16) naproxen (Intermediate, GI UPSET 06/11/16) Home Med List: Benzonatate (Tessalon Perle) 100 MG CAPSULE 1 CAP PO TID PRN COUGH Dicyclomine Hydrochloride (Bentyl) 10 MG CAPSULE 20 MG PO TID ABD CRAMPING ( Reported) Duloxetine HCl (Cymbalta) 60 MG CAPSULE.DR 1 CAP PO QPM DEPRESSION (Reported) Furosemide (Lasix) 40 MG TABLET 1 TAB PO BID DIURETIC (Reported) Hydroxyzine Pamoate (Vistaril) 50 MG CAPSULE 2 CAP PO TID ANXIETY (Reported) Insulin Glargine,Hum.rec.anlog (Lantus Solostar) 100 UNIT/ML (3 ML) INSULN.PEN 10 UNIT SC QAM DM (Reported) Insulin Glargine,Hum.rec.anlog (Lantus Solostar) 100 UNIT/ML (3 ML) INSULN.PEN 15 UNITS SC QPM DM (Reported) Metformin HCl (Glucophage) 1,000 MG TABLET 1 TAB PO BID DM (Reported) Methadone HCl 10 MG/ML ORAL.CONC 75 MG PO DAILY CHRONIC PAIN (Reported) Neomycin/Polymyxin B Sulf/Hc (Rijapgeq-Yxrrvwavo-Dx Ear Soln) 3.5 MG/ML-10,000 UNIT/ML-1 % SOLUTION 4 DROP AD TID PRN EAR INFECTION Pantoprazole Sodium 40 MG TABLET.DR 1 TAB PO DAILY AC GI (Reported) Potassium Chloride 10 MEQ TABLET.ER 1 TAB PO BID SUPPLEMENT (Reported) Quetiapine Fumarate 400 MG TABLET 1 TAB PO QPM SLEEP/MENTAL HEALTH (Reported) Quetiapine Fumarate 100 MG TABLET 1 TAB PO QAM MENTAL HEALTH (Reported) Trazodone HCl 150 MG TABLET 2 TAB PO QHS SLEEP/MENTAL HEALTH (Reported) Review of Systems Review of Systems: She denies claudication Past History Travel History Traveled to [place] past 21 day No Medical History Blood Transfusion Hx: No Neurological: NONE EENT: NONE Cardiovascular: NONE Respiratory: pneumonia Gastrointestinal: colitis, diverticulitis, pancreatitis, ACID REFLUX C DIFF LA grade B esophagitis, erosive gastropathy Hepatic: NONE Renal: NONE Musculoskeletal: NONE Psychiatric: NARCOTIC ABUSE CHRONIC PAIN MANAGEMENT Endocrine: diabetes Blood Disorders: NONE Cancer(s): NONE 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 Home Smoking Status: Never Smoked ETOH Use: denies use Illicit Drug Use: denies illicit drug use Exam & Diagnostic Data Vital Signs and I&O Vital Signs Result Date Time Pulse Ox 92 06/12 0655 B/P 118/60 06/12 0655 O2 Delivery Room Air 06/12 0655 Temp 99.4 06/12 0655 Pulse 103 06/12 0655 Resp 20 06/12 0655 Intake & Output 06/12 0000 06/11 1600 06/11 0800 Intake Total 0 Output Total Balance 0 Intake, Oral 0 Patient 230 lb Weight On exam there is bilateral symmetrical mild erythema of both legs there is 1-2+ pitting edema there is a small ulcer over the anterior aspect of her right lower extremity measuring approximately 1 x 1 cm with dry scab there is no drainage undermining sinus tracking or exposed bone Assessment/Plan Impression/Plan: 51-year-old woman morbidly obese chronic venous insufficiency admitted with erythema of her legs she is afebrile with normal white count. Whether this is cellulitis or not is unclear as it is equally symmetrical associated with edema in the setting of venous insufficiency may well be more likely inflammation. Recommend leg elevation and bed and moist wound care to soften her scab with Xeroform daily. If erythema markedly improves with elevation would consider discontinuing antibiotics Consult Acknowledgment - Thank you for your consult request.
[2016-06-12 15:04] VITALS: BP 120/72
[2016-06-12 22:46] VITALS: BP 122/74
--- NOTE | 2016-06-12 23:00 | NUR ---
PT NOTED TO HAVE INCREASED SWELLING IN L HAND. NO WARMTH, REDNESS, OR TENDERNESS NOTED. PT HAD IV IN LAC WITH IVF INFUSING. IV IN LAC REMOVED, NEW IV PLACED IN RF WITH IVF INFUSING IN NEW IV. L HAND ELEVATED ON PILLOW. DR CACERES NOTIFIED OF NEW SWELLING. WILL CONTINUE TO MONITOR.
[2016-06-13 06:43] VITALS: BP 118/70
--- NOTE | 2016-06-13 07:59 | PN- Housestaff ---
SOLEDAD CERRATO,APRIL 06/13/16 0757: Subjective Follow-up For: cellulitis chronic venous stasis DIPESH Subjective: Pt was seen and examined at bedside. Patient is taking cymbalta 120mg at night instead of 60mg. She agreed to get psychiatry evaluation for polypharmacy. She c/o leg/back pain 12/24, and she doesn't feel comfortable going home today as her legs are still swollen. Review of Systems Constitutional: Reports: weakness. Denies: chills, fever. EENTM: Reports: no symptoms. Cardiovascular: Reports: no symptoms. Respiratory: Reports: no symptoms. Gastrointestinal: Reports: no symptoms. Genitourinary: Reports: no symptoms. Musculoskeletal: Reports: back pain, joint pain, muscle pain. Skin: Reports: erythema. Neurological/Psychological: Reports: anxiety. Hematologic/Endocrine: Reports: no symptoms. Immunologic/Allergic: Reports: no symptoms. Objective Last 24 Hrs of Vital Signs/I&O Vital Signs Date Time Temp Pulse Resp B/P Pulse O2 O2 Flow FiO2 Ox Delivery Rate 06/13 0643 98.4 91 20 118/70 93 Room Air 06/12 2246 98.7 115 20 122/74 92 Room Air 06/12 1504 97.8 87 20 120/72 93 Intake & Output 06/13 0800 06/13 0000 06/12 1600 Intake Total 1000 1320 Output Total Balance 1000 1320 Intake, IV 600 600 Intake, Oral 400 720 Physical Exam General Appearance: Alert, Oriented X3, Cooperative, Mild Distress Skin: bilateral chronic venous stasis change Rt. ant. watkins scab HEENT: Atraumatic, PERRLA, EOMI Neck: Supple, No JVD, No LAD Lymphatic: Cervical nl Cardiovascular: Regular Rate, Normal S1, Normal S2, No Murmurs Lungs: Clear to Auscultation, Normal Air Movement Abdomen: Normal Bowel Sounds, Soft, No Tenderness Neurological: Normal Speech, Strength at 5/5 X4 Ext, Normal Tone, Sensation Intact, Cranial Nerves 3-12 NL Extremities: bilateral LE pitting edema, erythema, warmness Vascular: Normal Pulses, Pulses Symmetrical Current Medications: Current Medications Sig/Melody Start time Last Medication Dose Route Stop Time Status Admin Acetaminophen 650 MG Q6P PRN 06/12 0045 AC PO Alprazolam 1 MG ONCE ONE 06/12 2144 DC 06/12 PO 03/29 2146 2238 Alprazolam 0.5 MG AT BEDTIME PRN 06/12 1500 AC PO 06/19 1459 Cefazolin Sodium 1,000 MG IQ8 06/12 0800 AC 06/13 IV 0024 Diphenhydramine HCl 25 MG Q6P PRN 06/12 0045 DC IV Duloxetine HCl 60 MG AT BEDTIME 06/12 2200 AC 06/12 PO 2240 Heparin Sodium 5,000 UNIT Q8 06/12 0600 AC 06/13 (Porcine) SC 0658 Hydroxyzine HCl 100 MG TIDPRN PRN 06/12 1200 AC PO Insulin Aspart 0 TIDAC 06/12 0800 AC 06/12 SC 1700 Insulin Detemir 13 UNITS BID 06/12 0042 AC 06/12 SC 2240 Methadone HCl 75 MG 0800 06/12 0800 AC 06/12 PO 1403 Morphine Sulfate 2 MG Q4P PRN 06/11 2315 AC IV Omeprazole 40 MG DAILY AC 06/13 0700 AC 06/13 PO 0657 Oxycodone HCl 5 MG Q6P PRN 06/12 0045 AC PO Patient Medication 1 ED .STK-MED ONE 06/12 1401 DC Teaching ED 06/12 1402 Quetiapine Fumarate 400 MG AT BEDTIME 06/12 2200 AC 06/12 PO 2239 Quetiapine Fumarate 100 MG QAM 06/12 1000 AC 06/12 PO 1121 Sodium Chloride 1,000 ML Q13H 06/12 0515 AC 06/13 IV 0658 Trazodone HCl 150 MG ONCE ONE 06/12 2330 DC PO 06/12 2331 Trazodone HCl 150 MG AT BEDTIME NEED.. 06/12 2200 AC 06/12 PO 2238 Trimethobenzamide HCl 200 MG TIDPRN PRN 06/12 0045 AC IM Last 24 Hrs of Lab/Toby Results Last 24 Hrs of Labs/Mics: Laboratory Tests 06/12/16 0800: Lactic Acid 2.0 Lines/Diet/Fluids Fluids/Infusions: NS @75cc/hr Lines: peripheral lines Assessment/Plan Assessment: 51 yo female with pmh of opiate abuse on methadone (75mg/d), GERD, chronic back pain, DM, anxiety, depression with chronic venous stasis was sent from wound care center for recurrent LE cellulitis failed multiple outpatient antibiotic therapy. 1. Right lower extremity cellulitis with chronic stasis: Failed multiple outpatient treatment, most recently with po clindamycin for 10 days. Blood cultures are pending. x-ray shows bilateral soft tissue swelling Lt. > Rt, no osseous erosions. Wound care consult is appreciated, less likely to be infection. Will d/c IV cefazolin and continue xeroform dressing & keep legs elevated. pain control with home doses of methadone with pain pathway. 2. Bilateral LE edema with chronic stasis changes: follow echo result to rule out any underlying heart failure. Hold lasix due to DIPESH. Cr decreased down to 1.0 after hydration. Will resume lasix. 3. Normocytic anemia: unclear etiology, guiac stool, iron studies WNL, monitor signs of active bleeding. 4. DIPESH: Baseline Cr 0.9 was increased to 1.5. She was on lasix 40mg bid and metformin as home medication. pt is on gentle hydration of IV NS @ 75cc/hr. Will follow up BEP. 5. anxiety/depression/opioid dependece: CTPMP was checked, and the results are in the chart. home dose methadone was checked from [facility] ( 75mg/d). I tried to reach Muriel Quiles at [facility] ( [place]) regarding psy medication. She takes multiple medications including trazodone, quetiapine, duloxetine, lorazepam. Will get psychiatry evaluation for multiple psychiatric medication management. 6. DM: 7:30 am 126, 9pm 86. Will decrease insulin s/s and continue levemir 13 units bid. continue accuchecks with diabetic diet, hold metformin, HbA1c 7.7 on 06/12. (last hemoglobin A1c 9.22 June 2015). DVT ppx: SC heparin, full code. Pain pathway Problem List: 1. Chronic venous stasis dermatitis 2. Cellulitis 3. ARF Pain Ratin Pain Location: bilateral leg, back Pain Goal: Pain 4 or less Pain Plan: methadone maintenance tyrenol, oxycodone, morphine Tomorrow's Labs & Rationales: BEP with DIPESH, resuming lasix DVT/Prophylaxis: pharmacological Consulting Request: Consulting Specialty: Psychiatry Consulting Physician: Lj Desir Reason for Consult: Polypharmacy Discharge Plan Discharge Disposition: home Stable for Discharge? No Anticipated Discharge (Day): tomorrow D'LEWISCRIS CASTILLO MD 06/13/16 1418: Attending MD Review Statement Attending Statement Attending MD Statement: examined this patient, discuss w/resident/PA/SWEDGER, agreed w/resident/PA/SWEDGER, reviewed EMR data (avail), discussed with nursing, discussed with case mgmt Attending Assessment/Plan: Patient is upset about her leg still being swollen. She feels like she's not ready to go home. I explained that length Dr. Albarran's recommendations of stopping the antibiotic. Specifically that she doesn't have a fever or white count and the antibiotics can do more harm than good if not specifically indicated. She did speak to the psychiatrist and we are trying to manage the polypharmacy and taper the benzo as best we can. If she is stable, the plan will be discharge in a.m. with outpatient follow-up.
[2016-06-13 08:48] LABS: ABSOLUTE BASOPHIL COUNT 0 /CUMM (0.0-0.2); ABSOLUTE EOSINOPHIL COUNT 0.1 /CUMM (0.0-0.7); ABSOLUTE GRANULOCYTE CT 2.2 /CUMM (1.4-6.5); ABSOLUTE LYMPH COUNT 1.5 /CUMM (1.2-3.4); ABSOLUTE MONOCYTE COUNT 0.4 /CUMM (0.10-0.60); BASOPHIL % 0.4 % (0.0-2.0); EOSINOPHIL % 2.9 % (0-5); HEMATOCRIT 29.6 % (37-47); MEAN CORPUSCULAR HGB 26.7 PG (27.0-31.0); MEAN CORPUSCULAR HGB CONC 32.8 G/DL (33.0-37.0); MEAN CORPUSCULAR VOLUME 81.3 FL (81.0-99.0); PLATELET COUNT 169 /CUMM (130-400); RED BLOOD CELL CT 3.64 /CUMM (4.20-5.40); WHITE BLOOD CELL COUNT 4.1 /CUMM (4.8-10.8)
--- NOTE | 2016-06-13 12:26 | Cons- Psychiatry ---
See Addendum Psychiatric Consult Date of Consult: 06/13/16 Reason for Consult: "Polypharmacy including methadone and prolonged QTc 470." History of Present Illness: Identifying Info: Patient is a 51 yo female with a history of opiate abuse on methadone (75mg daily), GERD, chronic back pain, DM, anxiety, depression with chronic venous stasis who was sent from [facility] for recurrent LE cellulitis and is maintained on multiple psychiatric agents. CC: "I've been anxious for so long." HPI: Patient reported a gradual exacerbation in anxiety over an unknown time frame. She remains in steady contact with outpatient prescribers Muriel Quiles APRN and therapist JUAN Hargrove. Reported being in treatment at [facility] for MMT , and with outpatient therapist and JULI for approximately 1 year. Reports both providers are aware of her anxiety and have been working with her to address underlying causes which she has limited insight into. She identified experiencing multiple losses many years ago of her father (1997), grandmother ( 1988), and uncle (1990). Despite engaging in weekly individual therapy, she denied ever fully processing these losses which she continues to passively grieve. She could not identify any other sources of anxiety besides for these past losses. She denied a history of inpatient psychiatric hospitalizations, suicide attempts , plans or intent. Reported in the past she has endorsed passive intermittent suicidal thoughts which have always resolved with distraction. She denied active and passive suicidal ideation at present; she denied plans and intent. She identified protective factors of "my mom," "my sister," and "John, my therapist. " She stated and also believed she will not harm herself or others. PMH: GERD, chronic back pain, DM, chronic venous stasis. Please see the H&P for a complete listing Past Psych History: -Outpatient: Muriel Quiles APRN and therapist JUAN Hargrove x approx 1 year (current) at [facility]. -Inpatient: Denied Family Psych History: Denied known family history of psychiatric illness. Substance History: pt reported a history of prescription opiate dependence. Has been sober for approx 1 year. Length of use not reported. -Treatment: [facility] - Methadone maintenance x approximately 1 year. Social: Unemployed, single, female. High school graduate. Lives primarily alone in [place], presently has a friend temporarily living with her. She receives section 8 and state assistance. She was denied disability, but currently in process of reapplying. She reports having good relationships with her sister and mother who also live in [place]. Abuse/Trauma: Patient did not disclose. Current Home Psychotropic Medications: Hydroxyzine 100mg three times daily for anxiety Seroquel 100mg every morning Seroquel 400mg at bedtime Cymbalta 120mg nightly Methadone 75mg daily ([facility] - opiate maintenance) *Patient reported she is no longer prescribed Xanax by her outpatient psychiatric PLASMA CENTER NURSE. Current Hospital Medications: Current Medications Sig/Melody Start time Last Medication Dose Route Stop Time Status Admin Acetaminophen 650 MG Q6P PRN 06/12 0045 AC PO Alprazolam 0.5 MG DAILY NEEDED PRN 06/13 1014 AC 06/13 PO 06/20 1013 1217 Alprazolam 1 MG ONCE ONE 06/12 2145 DC 06/12 PO 06/12 2146 2238 Alprazolam 0.5 MG AT BEDTIME PRN 06/12 1500 DC PO 06/19 1459 Cefazolin Sodium 1,000 MG IQ8 06/12 0800 DC 06/13 IV 0827 Dicyclomine HCl 20 MG TID 06/13 1010 AC PO Duloxetine HCl 120 MG AT BEDTIME 06/13 2200 AC PO Duloxetine HCl 60 MG AT BEDTIME 06/12 2200 DC 06/12 PO 2240 Heparin Sodium 5,000 UNIT Q8 06/12 0600 AC 06/13 (Porcine) SC 0658 Hydroxyzine HCl 100 MG TIDPRN PRN 06/12 1200 AC PO Insulin Aspart 0 TIDAC 06/12 0800 AC 06/13 SC 1216 Insulin Detemir 13 UNITS BID 06/12 0042 AC 06/13 SC 1216 Methadone HCl 75 MG 0800 06/12 0800 AC 06/13 PO 0827 Morphine Sulfate 2 MG Q4P PRN 06/11 2315 AC IV Omeprazole 40 MG DAILY AC 06/13 0700 AC 06/13 PO 0657 Oxycodone HCl 5 MG Q6P PRN 06/12 0045 AC PO Patient Medication 1 ED .STK-MED ONE 06/12 1401 DC Teaching ED 06/12 1402 Quetiapine Fumarate 400 MG AT BEDTIME 06/12 2200 AC 06/12 PO 2239 Quetiapine Fumarate 100 MG QAM 06/12 1000 AC 06/13 PO 1216 Sodium Chloride 1,000 ML Q13H 06/12 0515 DC 06/13 IV 0658 Trazodone HCl 150 MG ONCE ONE 06/12 2330 DC PO 06/12 2331 Trazodone HCl 150 MG AT BEDTIME NEED.. 06/12 2200 AC 06/12 PO 2238 Trimethobenzamide HCl 200 MG TIDPRN PRN 06/12 0045 AC IM Allergies: Coded Allergies: Sulfa (Sulfonamide Antibiotics) (Intermediate, RASH, BUT OK WITH BACTRIM ) cephalexin (From Keflex) (Intermediate, RASH/ANKLE SWELLING 06/11/16) influenza virus vaccine tv 2012-(18-49 yrs),rcmb (From Flublok) (Intermediate, RASH/SWELLING 06/11/16) pneumococcal vaccine (From Pneumovax 23) (Intermediate, RASH/SWELLING 06/11/16) acetaminophen (From Tylenol) (Severe, INCREASES LIVER ENZYMES 06/11/16) erythromycin base (Intermediate, GI UPSET 06/11/16) ibuprofen (Intermediate, GI UPSET 06/11/16) ketorolac (From Toradol) (Intermediate, GI UPSET 06/11/16) naproxen (Intermediate, GI UPSET 06/11/16) Past History Past Medical History Neurological: NONE EENT: NONE Cardiovascular: NONE Respiratory: pneumonia Gastrointestinal: colitis, diverticulitis, pancreatitis, ACID REFLUX C DIFF LA grade B esophagitis, erosive gastropathy Hepatic: NONE Renal: NONE Musculoskeletal: NONE Psychiatric: NARCOTIC ABUSE CHRONIC PAIN MANAGEMENT Endocrine: diabetes Blood Disorders: NONE Cancer(s): NONE 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 Wears glasses. Has poor dentation. Obese. Short hair. Cooperative with evaluation. Dressed in hospital garb. Orientation: person, place, day, year, month. Sensorium: Awake and alert Eye contact: Appropriate Affect: calm and constricted Mood: "I'm anxious" Depression: 5/10 (10 being the worst) Anxiety: 8/10 (10 being the worst) Thought Content: appropriate - Denies SI/HI, AH/VH, PI. States and also believes she will not kill herself. - Denies Hopeless/Helpless Thoughts Thought Process: organized, linear, goal-directed to follow up with outpatient psych providers. Speech: soft-spoken, normal in rate and tone. Judgment: fair Insight: limited Cognition: grossly intact. Memory: Short-term deficits, long-term appears more intact able to state many facts of her childhood Attention/Concentration: grossly intact. Abstractions: [place] Brief ROS Gait: steady/independent Sleep: fair Appetite: stable Energy: fair IADLs/ADLs: independent per pt report Lab Results: Laboratory Tests 06/13 06/12 06/12 0725 UNK 0800 Chemistry Sodium (137 - 145 mmol/L) 137 Potassium (3.5 - 5.1 mmol/L) 3.9 Chloride (98 - 107 mmol/L) 101 Carbon Dioxide (22 - 30 mmol/L) 32 H Anion Gap (5 - 16) 4 L BUN (7 - 17 mg/dL) 19 H Creatinine (0.5 - 1.0 mg/dL) 1.0 Estimated GFR (>60 ml/min) 59 L BUN/Creatinine Ratio (7 - 25 %) 19.0 Lactic Acid (0.7 - 2.1 mmol/L) 2.0 Hematology CBC w Diff NO MAN DIFF REQ WBC (4.8 - 10.8 /CUMM) 4.1 L RBC (4.20 - 5.40 /CUMM) 3.64 L Hgb (12.0 - 16.0 G/DL) 9.7 L Hct (37 - 47 %) 29.6 L MCV (81.0 - 99.0 FL) 81.3 MCH (27.0 - 31.0 PG) 26.7 L RDW (11.5 - 14.5 %) 14.0 Plt Count (130 - 400 /CUMM) 169 MPV (7.4 - 10.4 FL) 7.0 L Gran % (42.2 - 75.2 %) 52.0 Lymphocytes % (20.5 - 51.1 %) 35.4 Monocytes % (1.7 - 9.3 %) 9.3 Eosinophils % (0 - 5 %) 2.9 Basophils % (0.0 - 2.0 %) 0.4 Absolute Granulocytes (1.4 - 6.5 /CUMM) 2.2 Absolute Lymphocytes (1.2 - 3.4 /CUMM) 1.5 Absolute Monocytes (0.10 - 0.60 /CUMM) 0.4 Absolute Eosinophils (0.0 - 0.7 /CUMM) 0.1 Absolute Basophils (0.0 - 0.2 /CUMM) 0 PUBS MCHC (33.0 - 37.0 G/DL) 32.8 L Toxicology Urine Opiates Screen (>2000 NG/ML) < 100.00 Methadone Screen (>300 NG/ML) > 735 H Barbiturate Screen (>200 NG/ML) < 60 Ur Phencyclidine Scrn (>25 NG/ML) < 6.00 Amphetamines Screen (>1000 NG/ML) < 100 U Benzodiazepines Scrn (>200 NG/ML) < 85 Urine Cocaine Screen (>300 NG/ML) < 50 Urine Cannabis Screen (>50 NG/ML) < 5.00 06/12 06/12 0640 0055 Chemistry Sodium (137 - 145 mmol/L) 136 L Potassium (3.5 - 5.1 mmol/L) 3.5 Chloride (98 - 107 mmol/L) 95 L Carbon Dioxide (22 - 30 mmol/L) 34 H Anion Gap (5 - 16) 7 BUN (7 - 17 mg/dL) 28 H Creatinine (0.5 - 1.0 mg/dL) 1.4 H Estimated GFR (>60 ml/min) 40 L BUN/Creatinine Ratio (7 - 25 %) 20.0 Hemoglobin A1c (4.2 - 5.8 %) 7.7 H Lactic Acid (0.7 - 2.1 mmol/L) 2.1 Hematology CBC w Diff NO MAN DIFF REQ WBC (4.8 - 10.8 /CUMM) 5.4 RBC (4.20 - 5.40 /CUMM) 3.68 L Hgb (12.0 - 16.0 G/DL) 9.9 L Hct (37 - 47 %) 29.9 L MCV (81.0 - 99.0 FL) 81.2 MCH (27.0 - 31.0 PG) 26.9 L RDW (11.5 - 14.5 %) 14.2 Plt Count (130 - 400 /CUMM) 160 MPV (7.4 - 10.4 FL) 7.1 L Gran % (42.2 - 75.2 %) 48.1 Lymphocytes % (20.5 - 51.1 %) 40.1 Monocytes % (1.7 - 9.3 %) 8.8 Eosinophils % (0 - 5 %) 2.8 Basophils % (0.0 - 2.0 %) 0.2 Absolute Granulocytes (1.4 - 6.5 /CUMM) 2.6 Absolute Lymphocytes (1.2 - 3.4 /CUMM) 2.2 Absolute Monocytes (0.10 - 0.60 /CUMM) 0.5 Absolute Eosinophils (0.0 - 0.7 /CUMM) 0.2 Absolute Basophils (0.0 - 0.2 /CUMM) 0 PUBS MCHC (33.0 - 37.0 G/DL) 33.1 Urines Urine Color (YEL,AMB,STR) STRAW Urine Clarity (CLEAR) CLEAR Urine pH (5.0 - 8.0) 7.0 Ur Specific [place] (1.001 - 1.035) 1.010 Urine Protein (NEG,<30 MG/DL) NEG Urine Ketones (NEG) NEG Urine Nitrite (NEG) NEG Urine Bilirubin (NEG) NEG Urine Urobilinogen (0.1 - 1.0 EU/dl) 0.2 Ur Leukocyte Esterase (NEG) NEG Ur Microscopic EXAM NOT REQUIRED Urine Hemoglobin (NEG) NEG Urine Glucose (N MG/DL) NEG 06/111 Chemistry Sodium (137 - 145 mmol/L) 137 Potassium (3.5 - 5.1 mmol/L) 3.8 Chloride (98 - 107 mmol/L) 90 L Carbon Dioxide (22 - 30 mmol/L) 37 H Anion Gap (5 - 16) 10 BUN (7 - 17 mg/dL) 25 H Creatinine (0.5 - 1.0 mg/dL) 1.5 H Estimated GFR (>60 ml/min) 37 L BUN/Creatinine Ratio (7 - 25 %) 16.7 Glucose (65 - 99 mg/dL) 137 H Lactic Acid (0.7 - 2.1 mmol/L) 2.3 H Calcium (8.4 - 10.2 mg/dL) 8.4 Iron (37 - 170 ug/dL) 56 TIBC (265 - 497 ug/dL) 346 Ferritin (6.24 - 137 ng/mL) 19.3 Total Bilirubin (0.2 - 1.3 mg/dL) 0.3 AST (14 - 36 U/L) 62 H ALT (9 - 52 U/L) 66 H Alkaline Phosphatase (<127 U/L) 113 Total Protein (6.3 - 8.2 g/dL) 7.2 Albumin (3.5 - 5.0 g/dL) 3.7 Globulin (1.9 - 4.2 gm/dL) 3.5 Albumin/Globulin Ratio (1.1 - 2.2 %) 1.1 Hematology CBC w Diff NO MAN DIFF REQ WBC (4.8 - 10.8 /CUMM) 5.9 RBC (4.20 - 5.40 /CUMM) 4.02 L Hgb (12.0 - 16.0 G/DL) 10.7 L Hct (37 - 47 %) 32.7 L MCV (81.0 - 99.0 FL) 81.4 MCH (27.0 - 31.0 PG) 26.6 L RDW (11.5 - 14.5 %) 13.9 Plt Count (130 - 400 /CUMM) 200 MPV (7.4 - 10.4 FL) 6.7 L Gran % (42.2 - 75.2 %) 53.7 Lymphocytes % (20.5 - 51.1 %) 36.9 Monocytes % (1.7 - 9.3 %) 6.7 Eosinophils % (0 - 5 %) 2.5 Basophils % (0.0 - 2.0 %) 0.2 Absolute Granulocytes (1.4 - 6.5 /CUMM) 3.2 Absolute Lymphocytes (1.2 - 3.4 /CUMM) 2.2 Absolute Monocytes (0.10 - 0.60 /CUMM) 0.4 Absolute Eosinophils (0.0 - 0.7 /CUMM) 0.1 Absolute Basophils (0.0 - 0.2 /CUMM) 0 PUBS MCHC (33.0 - 37.0 G/DL) 32.7 L Diffential Diagnosis: Unspecified depressive disorder Unpsecified anxiety disorder Opioid use disorder, on methadone maintenance Impression: Patient is a 51-year old female with a history of morbid obesity, chronic venous insufficiency and venous stasis ulcers, admitted to medicine for these conditions. Patient reported being on current medication regimen for approximately 1 year, however anxiety has minimally improved on regimen. She appeared very wedded to prescribed medications and showed minimal insight into the long-term cardiac risks of remaining on this regimen at current doses. Nonetheless, she verbalized understanding of the risks/SEs of these agents. She denied passive and active suicidal ideation, plans and intent. She denied homicidal ideation and perceptual distrubances. Patient does not appear to be an imminent risk to self or others. Provisional Treatment Plan: 1. Recommend continuing current doses of Seroquel, Cymbalta, Methadone, and Trazodone as prescribed by outpatient psychiatric PLASMA CENTER NURSE. 2. Recommend decreasing Hydroxyzine from 100mg TID to 50mg TID given prolonged QTc. 3. Patient to follow-up with therapist JUAN Hargrove on 06/20/16. 4. Patient to follow-up with outpatient psychiatric nurse practitioner Muriel Quiles. Education was provided on prescribed medication regimen and for patient to speak to PLASMA CENTER NURSE about making medication adjustments to further target anxiety. 5. Recommend contacting Muriel Quiles APRN regarding medical concerns likely related to current polypharmacy. 6. Patient was advised that in the event of an emergency, or if psychiatric symptoms worsen, call 911/go to nearest emergency department. Patient verbalized understanding of instruction. Thank you for including psychiatry in Ms. Liao's care. We do not anticipate further visits. Please reconsult if further psychiatric matters arise. Yesika Duke APRN Beeper ext. [phone]
--- NOTE | 2016-06-13 14:47 | NUR ---
PT IN CHAIR EATING LUNCH FALLING ASLEEP WHILE EATING. WOKE PT UP MULTIPLE TIMES IN ATTEMPT TO MOVE TO BED. PT ALSO REFUSING CHAIR ALARM AT THIS TIME. TOLD PT IT IS NOT SAFE FOR HER TO SIT IN CHAIR WITHOUT ALARM IF SHE IS DROWSY AND THAT IT WOULD BE SAFER FOR HER TO MOVE BACK TO BED. AFTER MULTIPLE ATTEMPTS PT BACK TO BED WITH BED ALARM PLUGGED IN. WILL CONTINUE TO MONITOR.
[2016-06-13 14:54] VITALS: BP 128/72
--- NOTE | 2016-06-13 15:32 | Patient Discharge Instructions ---
Discharge Instructions General Discharge Information You were seen/treated for: Chronic venous stasis Acute kidney injury Special Instructions: Please follow up with a primary doctor within 1 week after discharge Please follow up with at wound care center for chronic venous stasis/ wound care. Please follow up with [facility] for methadone Please follow up with a psychology therapist, JUAN Hargrove on 06/20/2016, and a psychiatrist Muriel Quiles. Diet Continue normal diet: Yes Recommended Diet: Diabetic, Heart Healthy Activity Full Activity/No Limits: Yes Activity Self Limited: No Acute Coronary Syndrome Inclusion Criteria At DC or during hospital stay patient has or had the following: ACS DIAGNOSIS No Discharge Core Measures Meds if any: Prescribed or Continued at Discharge Meds if any: NOT Prescribed or Continued at Discharge Congestive Heart Failure Inclusion Criteria At DC or during hospital stay patient has or had the following: CHF DIAGNOSIS Yes Discharge Core Measures Meds if any: Prescribed or Continued at Discharge Meds if any: NOT Prescribed or Continued at Discharge Comment EF 65% Cerebrovascular accident Inclusion Criteria At DC or during hospital stay patient has or had the following: CVA/TIA Diagnosis No Discharge Core Measures Meds if any: Prescribed or Continued at Discharge Meds if any: NOT Prescribed or Continued at Discharge Venous thromboembolism Inclusion Criteria VTE Diagnosis No VTE Type NONE VTE Confirmed by (Test) NONE Discharge Core Measures - Per Current guidelines, there needs to be overlap - treatment for the first 5 days of Warfarin therapy. - If discharged on Warfarin prior to 5 days of - overlap therapy, the patient will need to be - assessed for post discharge needs including - *Post discharge parental anticoagulation - *Warfarin and/or parental anticoagulation education - *Follow up date to check INR post discharge At least 5 days overlap therapy as Inpatient No Meds if any: Prescribed or Continued at Discharge Note: Overlap Therapy is Warfarin and Anticoagulant Meds if any: NOT Prescribed or Continued at Discharge
--- NOTE | 2016-06-13 18:04 | NUR ---
PT VERY DROWSY, AROUSABLE, ORIENTED. BED ALARM IN PLACE. DRESSING TO RLE INTACT, BOTH LEGS RED/WARM/TENDER. PER PT'S MOM THE PT NEEDS EDUCATION ABOUT DIABETIC DIET AND WEIGHT LOSS. WILL PASS ON IN REPORT FOR DISCHARGE EDUCATION.
--- NOTE | 2016-06-13 21:00 | NUR ---
PT REQUESTED FOR 1MG XANAX AT BEDTIME WHICH SHE SAID SHE USUALLY TAKES AND SHOULD BE ORDERED FOR EVERY NIGHT. GAS BRAZER MORRIS CALLED AND REQUESTED TO GIVE AN ORDER FOR XANAX. PT'S BS 189. PT ASKING FOR 2 ICECREAMS. 1 ICECREAM GIVEN BUT PT GOT VERY ANGRY SAYING "JUST DISCHARGE ME" OR GIVE ME 2 ICECREAMS. SHE SAID "NOBODY STOPS ME FROM EATING 2 ICECREAMS AT THIS TIME, EVERYBODY GIVES IT TO ME, YOU ARE THE ONLY ONE STOPPING ME, I WANT 2 ICECREAM CUPS NOMATTER WHAT". NURSE MAILS SUPERVISOR CALLED TO HELP WHO TRIED TO MAKE THE PT UNDERSTAND THAT HER BS IS HIGH FOR 2 CUPS OF ICECREAMS BUT TO NO USE. FINALLY, 2 CUPS OF ICECREAM WERE GIVEN. BOXED LUNCH PROVIDED PER PT'S REQUEST.
--- NOTE | 2016-06-13 21:30 | NUR ---
PT REFUSED BEDALARM.
[2016-06-13 22:37] VITALS: BP 126/70
[2016-06-14 06:42] VITALS: BP 122/78
--- NOTE | 2016-06-14 07:47 | PN- Housestaff ---
SOLEDAD CERRATO,RAULIraisSHIREEN 06/14/16 0747: Subjective Follow-up For: Chronic venous stasis DIPESH Complaints: pain scale (0-10) (8/10) Subjective: Patient was seen and examined at bedside. She was very sleepy, and she fell asleep while she's eating breakfast and talking. She c/o 8/10 bilateral leg pain, she is concerned about leg edema. Her legs are elevated with Rt. leg dressing. She would like to take morning methadone dose. Review of Systems Constitutional: Denies: chills, fever, weakness. EENTM: Reports: no symptoms. Cardiovascular: Reports: peripheral edema. Denies: chest pain. Respiratory: Denies: cough, short of breath, sputum production, wheezing. Gastrointestinal: Denies: abdominal pain, nausea, vomiting. Genitourinary: Reports: no symptoms. Musculoskeletal: Reports: see HPI, back pain, muscle pain. Skin: Reports: see HPI, erythema. Neurological/Psychological: Reports: anxiety. Hematologic/Endocrine: Reports: no symptoms. Immunologic/Allergic: Reports: no symptoms. Objective Last 24 Hrs of Vital Signs/I&O Vital Signs Date Time Temp Pulse Resp B/P Pulse O2 O2 Flow FiO2 Ox Delivery Rate 06/14 0642 98.5 94 20 122/78 91 Room Air 06/13 2237 98.2 111 20 126/70 91 Room Air 06/13 1454 98.0 117 20 128/72 91 Intake & Output 06/14 0800 06/14 0000 06/13 1600 Intake Total 200 650 Output Total Balance 200 650 Intake, IV 150 Intake, Oral 200 500 Physical Exam General Appearance: Alert, Oriented X3, Cooperative, No Acute Distress Skin: bilateral chronic venous stasis, Rt. ant. watkins dressing HEENT: Atraumatic, PERRLA, EOMI, Mucous Membr. moist/pink Neck: Supple, No JVD, No LAD Lymphatic: Cervical nl Cardiovascular: Regular Rate, Normal S1, Normal S2, No Murmurs Lungs: Clear to Auscultation, Normal Air Movement Abdomen: Normal Bowel Sounds, Soft, No Tenderness Neurological: Normal Speech, Strength at 5/5 X4 Ext, Normal Tone, Sensation Intact, Cranial Nerves 3-12 NL Extremities: Normal Pulses, LE mild pitting edema, tenderness+ Vascular: Normal Pulses, Pulses Symmetrical Current Medications: Current Medications Sig/Melody Start time Last Medication Dose Route Stop Time Status Admin Acetaminophen 650 MG Q6P PRN 06/12 0045 AC PO Alprazolam 1 MG ONCE ONE 06/13 2145 DC 06/13 PO 06/13 2146 2245 Alprazolam 0.5 MG DAILY NEEDED PRN 06/13 1014 AC 06/13 PO 06/20 1013 1217 Alprazolam 0.5 MG AT BEDTIME PRN 06/12 1500 DC PO 06/19 1459 Cefazolin Sodium 1,000 MG IQ8 06/12 0800 DC 06/13 IV 0827 Dicyclomine HCl 20 MG TID 06/13 1010 AC 06/13 PO 2109 Duloxetine HCl 120 MG AT BEDTIME 06/13 2200 AC 06/13 PO 2109 Duloxetine HCl 60 MG AT BEDTIME 06/12 2200 DC 06/12 PO 2240 Furosemide 40 MG 7:30 AM, & 4:30 PM 06/13 1630 AC 06/14 PO 0638 Furosemide 40 MG .STK-MED ONE 06/13 1522 DC PO 06/13 1523 Heparin Sodium 5,000 UNIT Q8 06/12 0600 AC 06/14 (Porcine) SC 0639 Hydroxyzine HCl 100 MG TIDPRN PRN 06/12 1200 AC PO Insulin Aspart 0 TIDAC 06/12 0800 AC 06/14 SC 0816 Insulin Detemir 13 UNITS BID 06/12 0042 AC 06/13 SC 2109 Methadone HCl 75 MG 0800 06/12 0800 AC 06/14 PO 0817 Morphine Sulfate 2 MG Q4P PRN 06/11 2315 AC IV Omeprazole 40 MG DAILY AC 06/13 0700 AC 06/14 PO 0638 Oxycodone HCl 5 MG Q6P PRN 06/12 0045 AC PO Quetiapine Fumarate 400 MG AT BEDTIME 06/12 2200 AC 06/13 PO 2108 Quetiapine Fumarate 100 MG QAM 06/12 1000 AC 06/13 PO 1216 Sodium Chloride 1,000 ML Q13H 06/12 0515 DC 06/13 IV 0658 Trazodone HCl 150 MG AT BEDTIME NEED.. 06/12 2200 AC 06/13 PO 2245 Trimethobenzamide HCl 200 MG TIDPRN PRN 06/12 0045 AC IM Last 24 Hrs of Lab/Toby Results Last 24 Hrs of Labs/Mics: Laboratory Tests 06/14/16 0710: Sodium Pending, Potassium Pending, Chloride Pending, Carbon Dioxide Pending, Anion Gap Pending, BUN Pending, Creatinine Pending, BUN/Creatinine Ratio Pending Assessment/Plan Assessment: 51 yo female with pmh of opiate abuse on methadone (75mg/d), GERD, chronic back pain, DM, anxiety, depression with chronic venous stasis was sent from wound care center for recurrent LE cellulitis failed multiple outpatient antibiotic therapy. 1. Bilateral chronic venous stasis/edema: Wound care consult is appreciated, more likely to be chronic change rather than acute infection. IV cefazolin was discontinued yesterday. Continue xeroform dressing / compression stocking/ keep legs elevated. PO lasix was resumed yesterday. Patient needs to follow up with Dr. Albarran at wound care center. 2. DIPESH: resolved, back to baseline creatinine. Lasix 40mg bid was resumed. Patient will follow up with primary doctor with [facility]. 3. Normocytic anemia: stable, no signs of active bleeding, iron studies WNL, follow up as outpatient. 4. anxiety/depression/opioid dependece: CTPMP was checked, and the results are in the chart. home dose methadone was checked from [facility] ( 75mg/d). Psychiatry consult was appreciated. She should continue home dose trazodone, quetiapine, duloxetine, and follow up with a psychiatric provider Muriel Emerson. 5. DM: 7:30 am 177, 9pm 189. Resume metformin upon discharge. HbA1c 7.7 on 06/12. (last hemoglobin A1c 9.22 June 2015). DVT ppx: SC heparin, full code. Pain pathway Problem List: 1. Chronic venous stasis dermatitis 2. ARF 3. Left shoulder strain Pain Ratin Pain Location: Back pain, bilateral LE pain Pain Goal: Pain 4 or less Pain Plan: Home dose methadone tyrenol, oxycodone Tomorrow's Labs & Rationales: DC today DVT/Prophylaxis: pharmacological Consulting Request: Consulting Specialty: Psychiatry Consulting Physician: Lj Desir Reason for Consult: Polypharmacy Discharge Plan Stable for Discharge? Yes Anticipated Discharge (Day): today If Discharged Today/In 24 Hrs: enter antc discharge ord, CMR done CRIS BESS MD 06/14/16 1408: Attending MD Review Statement Attending Statement Attending MD Statement: examined this patient, discuss w/resident/PA/OFFICE TECHNOLOGY INSTRUCTOR, agreed w/resident/PA/OFFICE TECHNOLOGY INSTRUCTOR, reviewed EMR data (avail), discussed with nursing, discussed with case mgmt, reviewed images Attending Assessment/Plan: Initially the patient refused to be discharged. She kept saying that she wants Xanax and she wants Percocet and she wants to eat ice cream. She also did not give me permission to talk to her mother or anyone in the family. I went in again with the psych PRODUCTION CONTROL TECHNOLOGIST Lj Desir. We both spoke to her at length. We explained to her that we confirmed that the outpatient provider and Xanax is no longer being prescribed to her. Her U tox on admission was also negative for benzos. We also explained all of our concerns with her multiple psychiatric medications and that we felt she was over medicated and sedated. She adamantly denied that and stated that she's drowsy only because she hasn't slept for many days and that she is not sedated at home. We explained at length that we not changed any of her medications, not given any new prescriptions on discharge but we need her to closely follow-up because of the dangers of oversedation. I worry as patient is clearly noncompliant with the diet given her diabetes, I don 't think she's keeping her legs elevated at home. She doesn't have a cellulitis and is okay to restart her Lasix with outpatient follow-up.
--- NOTE | 2016-06-14 07:56 | PN- Wound Care ---
Subjective Subjective: Patient has not had her legs elevated and remains concerned about residual edema. Objective Vital Signs and I&Os Vital Signs Result Date Time Pulse Ox 91 06/14 641 B/P 122/78 06/14 641 O2 Delivery Room Air 06/14 641 Temp 98.5 06/14 641 Pulse 94 06/14 641 Resp 20 06/14 641 Intake & Output 06/14 0000 06/13 1600 06/13 0800 Intake Total 200 650 840 Output Total Balance 200 650 840 Intake, IV 150 600 Intake, Oral 200 500 240 Right lower extremity ulcer slough is been able to be removed and there remains approximately 8.3 x 0.3 cm venous stasis ulcer of her right leg there continues to be 1+ pitting edema there is slight erythema of her legs Impression/Plan Impression/Plan Impression/Plan: 51-year-old woman morbidly obese chronic venous insufficiency admitted with erythema of her legs she is afebrile with normal white count. Whether this is cellulitis or not is unclear as it is equally symmetrical associated with edema in the setting of venous insufficiency may well be more likely inflammation. Recommend leg elevation. Continue Xeroform to right leg ulcer. Patient has compression stockings and these can be placed on both legs. Patient can be seen in follow-up in the wound care center
--- NOTE | 2016-06-14 08:49 | Discharge Summary ---
Visit Information Visit Dates Admission Date: 06/11/16 Discharge Date: 06/14/16 Hospital Course Course Attending Physician: MARIA ALEJANDRA CERRATO,CRIS Harrison Primary Care Physician: ELIZABETH PASTOR MD Consulting Request: Consulting Specialty: Psychiatry Consulting Physician: Lj Desir Reason for Consult: Polypharmacy Hospital Course: 51 yo female with pmh of opiate abuse on methadone (75mg/d) with chronic back pain, GERD, DM, anxiety, depression, chronic venous stasis was sent from wound care center for recurrent LE cellulitis failed multiple outpatient antibiotic therapy. She had recurrent lower extremity swelling and redness treated 3 times so far with clindamycin in last 8 months for cellulitis. She was following up with wound care clinic. On the day of admission, would care provider noticed 2 new small wounds one on each lower extremity and small pus discharge from right sided wound. She didn't have fever, chills, nausea, vomiting. There was no new trauma or pets. Initial Vitals: 98.3F, VA 89, RR 18, BP 124/74, 99% on RA. On physical exam: Alert, Oriented 3, morbidly obese, neck supple, no JVD, no lymphadenopathy, mucosa moist, no focal neurological deficit, bilateral lower extremity nonpitting edema. CVS: S1-S2, RRR. RS: Clear to auscultate bilaterally. Abdomen: Soft, NT, ND, bowel sounds present. Bilateral lower extremity shows chronic stasis changes with additional mild inflammatory changes on right lower extremity with superficial wound with a spot of pus, no additional fluctuation noticed. Labs: WBC 5.9, Hb/Hct 10.7/32.7 (12.3/37.9 in June 2015), BUN/creatinine 25/1.5 (baseline 0.9), Bicarbonate 37, glucose 137, lactate 2.3, AST 62, ALT 66 Foot -xray: Bilateral soft tissue swelling, left greater than right, with no evidence for soft tissue gas. No osseous erosions. Degenerative changes with heel spurs bilaterally. Patient was admitted to [facility] floor for following problem lists; 1. Bilateral chronic venous stasis/edema: Wound care consult was appreciated, more likely to be chronic change rather than acute infection. There was no fever /leukocytosis. IV cefazolin was discontinued. Continue xeroform dressing / compression stocking/ keep legs elevated. PO lasix 40mg was resumed. Echocardiogram on 3/31 showed normal EF 65% with stage 1 diastolic dysfunction. Patient needs to follow up with Dr. [facility]ran at [facility]. 2. DIPESH: Initial Cr 1.5 was resolved back to baseline creatinine 1.0 after gentle IV hydration. Lasix 40mg bid was resumed (stage 1 diastolic dysfunction). Patient will follow up with primary doctor with [facility]. 3. Normocytic anemia: stable, no signs of active bleeding, iron studies WNL, follow up as outpatient. 4. anxiety/depression/opioid dependece: CTPMP was checked, and the results are in the chart. Home dose methadone was checked from [facility] ( 75mg/d). Regarding polypharmacy, Psychiatry consult was appreciated. Her QTc was 478ms. She doesn't take alprazolam per medication history. She should continue home dose trazodone, quetiapine, duloxetine. Her hydroxyzine dose could be reduced from 100mg TID prn to 50mg TID prn, but she didn't require hydroxyzine during admission. She'll follow up with a psychiatric provider Roberta Emerson. 5. DM: She had diabetic diet with novolog sliding scale. HbA1c was checked as 7.7 on 06/12. (last hemoglobin A1c 9.22 June 2015). Continue home dose metformin and follow up with primary doctor. DVT ppx: SC heparin, full code. Pain pathway Allergies: Coded Allergies: Sulfa (Sulfonamide Antibiotics) (Intermediate, RASH, BUT OK WITH BACTRIM ) cephalexin (From Keflex) (Intermediate, RASH/ANKLE SWELLING 06/11/16) influenza virus vaccine tv 2012-(18-49 yrs),rcmb (From Flublok) (Intermediate, RASH/SWELLING 06/11/16) pneumococcal vaccine (From Pneumovax 23) (Intermediate, RASH/SWELLING 06/11/16) acetaminophen (From Tylenol) (Severe, INCREASES LIVER ENZYMES 06/11/16) erythromycin base (Intermediate, GI UPSET 06/11/16) ibuprofen (Intermediate, GI UPSET 06/11/16) ketorolac (From Toradol) (Intermediate, GI UPSET 06/11/16) naproxen (Intermediate, GI UPSET 06/11/16) Significant Procedures: TTE: 06/14 Small left ventricular cavity. Mild concentric left ventricular hypertrophy. No obvious regional wall motion abnormalities. Normal left ventricular ejection fraction visually estimated at > 65%. Mildly increased resting left ventricular outflow tract velocity (1.3 m/s). Abnormal relaxation filling pattern of the left ventricle for age (stage 1 diastolic dysfunction). Normal right ventricular size and function. Normal atrial size. Trace tricuspid regurgitation. No evidence of pulmonary hypertension. Pertinent Lab Results: On discharge 06/14 Hb/Hct 9.7/29.6, BUN/Cr BUN/Cr 13/1.1 U tox on 06/12 methadone > 735, no benzodiazepine was detected Disposition Summary Disposition Principal Diagnosis: Bilateral chronic venous stasis & edema Stage I diastolic heart failure (EF > 65%) Acute kidney injury, resolved Normocytic anemia Additional Diagnosis: Anxiety Depression Chronic pain syndrome on methadone maintenance Diabetes Discharge Disposition: home or self care Discharge Instructions General Discharge Information Code Status: Full Code Patient's Diet: Diabetic / heart healthy diet Patient's Activity: Increase as tolerated Follow-Up Instructions/Appts: Please follow up with a primary doctor within 1 week after discharge Please follow up with at wound care center for chronic venous stasis/ wound care. Please follow up with [facility] for methadone Please follow up with a psychology therapist, JUAN Hargrove on 06/20/2016, and a psychiatrist Roberta Quiles. Medications at Discharge Discharge Medications: Continue taking these medications: Hydroxyzine Pamoate (Vistaril) 50 MG CAPSULE 2 Capsule ORAL THREE TIMES DAILY Pantoprazole Sodium (Pantoprazole Sodium) 40 MG TABLET. 1 Tablet ORAL DAILY BEFORE BREAKFAST Duloxetine HCl (Cymbalta) 60 MG CAPSULE. 2 Capsule ORAL Every night Comments: Last Taken: 06/13/16 Time: 2100 Benzonatate (Tessalon Perle) 100 MG CAPSULE 1 Capsule ORAL THREE TIMES DAILY as needed for COUGH Qty = 30 Comments: NOT TAKEN IN HOSPITAL Neomycin/Polymyxin B Sulf/Hc (Bxookkzi-Uuuxlipes-Te Ear Soln) 3.5 MG/ML-10,000 UNIT/ML-1 % SOLUTION 4 DROP Right Ear THREE TIMES DAILY as needed for EAR INFECTION Qty = 20 Dicyclomine Hydrochloride (Bentyl) 10 MG CAPSULE 20 Milligram ORAL THREE TIMES DAILY Comments: Last Taken: 06/14/16 Time: 1100 Furosemide (Lasix) 40 MG TABLET 1 Tablet ORAL TWICE DAILY Comments: Last Taken: 06/14/16 Time: 0630 Methadone HCl (Methadone HCl) 10 MG/ML ORAL.CONC 75 Milligram ORAL DAILY Comments: Last Taken: 06/14/16 Time: 0815 Quetiapine Fumarate (Quetiapine Fumarate) 400 MG TABLET 1 Tablet ORAL Every night Qty = 30 Comments: Last Taken: 06/13/16 Time: 2100 Quetiapine Fumarate (Quetiapine Fumarate) 100 MG TABLET 1 Tablet ORAL Every Morning Qty = 30 Comments: Last Taken: 06/14/16 Time: 1000 Potassium Chloride (Potassium Chloride) 10 MEQ TABLET.ER 1 Tablet ORAL TWICE DAILY Trazodone HCl (Trazodone HCl) 150 MG TABLET 2 Tablet ORAL TAKE AT BEDTIME Comments: Last Taken: 06/13/16 Time: 2100 Insulin Glargine,Hum.rec.anlog (Lantus Solostar) 100 UNIT/ML (3 ML) INSULN.PEN 10 Unit Inject into fatty tissue Every Morning Insulin Glargine,Hum.rec.anlog (Lantus Solostar) 100 UNIT/ML (3 ML) INSULN.PEN 15 Units Inject into fatty tissue Every night Metformin HCl (Glucophage) 1,000 MG TABLET 1 Tablet ORAL TWICE DAILY Copies To: MARIA ALEJANDRA CERRATO,CRIS Harrison; ALVARO CERRATO,HEYDI Sanchez; AN CERRATO,ROBERTA Wilkinson; KAL DESIR APRN; DARBY CERRATO,[facility]
--- NOTE | 2016-06-14 13:08 | PN- Psychiatry ---
Assessment/Plan Impression: The patient reports that she has not slept for 5 days before admission, which she feels explains her somnelence during this admission. We discussed with her the sedating nature of manyof her medications, and encouraged her to work with her psychiatric prescriber, Muriel Quiles APRN, on a therapeutic regimen. Rhonda reports that her father in 1997 and she has not resolved her grief. She also mentions many other family members who have , including her two grandmothers and six uncles, that have deeply affected her. She reports she is addressing these issues with her therapist, JUAN Hargrove. She reports that Xanax works better than hydroxyzine for anxiety. Dr. Lang and I explained that this medication will not be prescribed, as her outpatient provider has stopped it, and it is not therapeutic for continuing therapy. I have instructed her to make an appointment with Ms. Quiles within the next week or so, and not wait for the normal visit scheduled for three months hence. Suggestion: 1. D/C alprazolam, which is no longer prescribed by her district recruiter, Muriel Quiles. 2. The housestaff had placed a call to Ms. Quiles; please advise when she returns the call about where we can reach her to discuss. 3. Please send a discharge summary to Ms. Quiles, and ask that a follow-up visit be arranged with the patient sooner than the projected 3 month visit in August, (Patient report). The patient will see her therapist on her usual weekly schedule. 4. We normally suggest that reasons for QTc prolongation be discussed with pharmacy. Last QTc was 478 mS, or slightly over our suggested limit of 475 mS for administration of QTc-prolonging agents, such as quetiapine and hydrozyzine. Please ask the patient's PCP to follow up on this. 5. Reduce hydroxyzine to 50 mg PO 3X/day PRN, as we suggested yesterday. This may help resolve the QTc prolongation. 6. Continue other psychotropic medications, quetiapine, methadone per current orders. 7. We suggest maintaining trazodone at the current dose of 150 mg. Psychiatry signing off. Lizzy Desir APRN, Pager [phone]. Subjective Subjective: Pt seen today with Dr. Madalyn Lang, attending physician. A+OX3 Answers are direct without appreciable delay, but she requests that some be repeated. Denies AVH; presents no mustapha delusions Thought processes are linear and logical. Depression scaled at 8/10, but feels that Cymbalta 120 mg daily, prescribed for depression is working well. Denies SI/HI Objective Last 24 Hrs of Vital Signs/I&O Vital Signs Date Time Temp Pulse Resp B/P Pulse O2 O2 Flow FiO2 Ox Delivery Rate 06/14 0642 98.5 94 20 122/78 91 Room Air 06/13 2237 98.2 111 20 126/70 91 Room Air 06/13 1454 98.0 117 20 128/72 91 Intake & Output 06/14 1600 06/14 0800 06/14 0000 Intake Total 200 200 Output Total 400 Balance -400 200 200 Intake, Oral 200 200 Output, Urine 400 Current Medications: Current Medications Sig/Melody Start time Last Medication Dose Route Stop Time Status Admin Acetaminophen 650 MG Q6P PRN 06/12 0045 AC PO Alprazolam 1 MG ONCE ONE 06/13 2145 DC 06/13 PO 06/13 2146 2245 Alprazolam 0.5 MG DAILY NEEDED PRN 06/13 1014 DC 06/13 PO / 1013 1217 Dicyclomine HCl 20 MG TID 06/13 1010 AC 06/14 PO 1148 Duloxetine HCl 120 MG AT BEDTIME 06/13 2200 AC 06/13 PO 2109 Furosemide 40 MG 7:30 AM, & 4:30 PM 06/13 1630 AC 06/14 PO 0638 Furosemide 40 MG .STK-MED ONE 06/13 1522 DC PO 06/13 1523 Heparin Sodium 5,000 UNIT Q8 06/12 0600 AC 06/14 (Porcine) SC 0639 Hydroxyzine HCl 100 MG TIDPRN PRN 06/12 1200 AC PO Insulin Aspart 0 TIDAC 06/12 0800 AC 06/14 SC 1149 Insulin Detemir 13 UNITS BID 06/12 0042 AC 06/14 SC 1149 Methadone HCl 75 MG 0800 06/12 0800 AC 06/14 PO 0817 Morphine Sulfate 2 MG Q4P PRN 06/11 2315 DC IV Omeprazole 40 MG DAILY AC 06/13 0700 AC 06/14 PO 0638 Oxycodone HCl 5 MG Q6P PRN 03/29 0045 DC PO Quetiapine Fumarate 400 MG AT BEDTIME 06/12 2199 AC 06/13 PO 210 Quetiapine Fumarate 100 MG QAM 06/12 1000 AC 06/14 PO 1148 Trazodone HCl 150 MG AT BEDTIME NEED.. 06/12 2199 AC 06/13 PO 224 Trimethobenzamide HCl 200 MG TIDPRN PRN 06/12 44 AC IM Results Last 24 Hrs of Labs/Mics: Laboratory Tests 06/14 0710 Chemistry Sodium (137 - 145 mmol/L) 138 Potassium (3.5 - 5.1 mmol/L) 3.8 Chloride (98 - 107 mmol/L) 99 Carbon Dioxide (22 - 30 mmol/L) 33 H Anion Gap (5 - 16) 6 BUN (7 - 17 mg/dL) 13 Creatinine (0.5 - 1.0 mg/dL) 1.1 H Estimated GFR (>60 ml/min) 53 L BUN/Creatinine Ratio (7 - 25 %) 11.8
--- NOTE | 2016-06-14 13:26 | ECHOCARDIOGRAM REPORT ---
LES MOREL Age: 51 : 1965 Gender: F Exam Date: 06/13/2016 14:19 Exam Location: [place] Ht (in): 59 Wt (lb): 230 BSA: 2.15 BP: 118 / 70 Ordering Physician: MARIBELL COOPER MD Referring Physician: MARIBELL COOPER MD Technologist: Loraine Kc [facility] Room Number: 235-01 Indications: EVALUATION OF ASCENDING AORTA Rhythm: Sinus Technical Quality: Fair FINDINGS Left Ventricle Small left ventricular cavity. Mild concentric left ventricular hypertrophy. No obvious regional wall motion abnormalities. Normal left ventricular ejection fraction visually estimated at >65%. Mildly increased resting left ventricular outflow tract velocity (1.3 m/s). Abnormal relaxation filling pattern of the left ventricle for age (stage 1 diastolic dysfunction). Right Ventricle Normal right ventricular size and function. Right Atrium Normal right atrial size. Left Atrium Normal left atrial size. Mitral Valve Structurally normal mitral valve. No mitral regurgitation. Aortic Valve Structurally normal trileaflet aortic valve. No aortic valve stenosis or regurgitation. Tricuspid Valve Structurally normal tricuspid valve. Trace tricuspid regurgitation. No evidence of pulmonary hypertension. Right ventricular systolic pressure estimated to be within the normal range at 11 mmHg. Pulmonic Valve Pulmonic valve not well visualized, grossly normal. No pulmonic regurgitation. Pericardium No pericardial effusion. Great Vessels Normal size aortic root. Normal size inferior vena cava. CONCLUSIONS Small left ventricular cavity. Mild concentric left ventricular hypertrophy. No obvious regional wall motion abnormalities. Normal left ventricular ejection fraction visually estimated at > 65%. Mildly increased resting left ventricular outflow tract velocity (1.3 m/s). Abnormal relaxation filling pattern of the left ventricle for age (stage 1 diastolic dysfunction). Normal right ventricular size and function. Normal atrial size. Trace tricuspid regurgitation. No evidence of pulmonary hypertension. Edgar Beltran M.D. (Electronically Signed) Final Date: 14 June 2016 13:25 MEASUREMENTS (Male / Female) Normal Values 2D ECHO LV Diastolic Diameter PLAX 3.6 cm 4.2 - 5.9 / 3.9 - 5.3 cm LV Systolic Diameter PLAX 1.7 cm 2.1 - 4.0 cm LV Fractional Shortening PLAX 52.8 % 25 - 46 % LV Ejection Fraction 2D Teich 84.6 % IVS Diastolic Thickness 1.0 cm LVPW Diastolic Thickness 1.0 cm LV Relative Wall Thickness 0.6 RV Internal Dim ED PLAX 3.0 cm 1.9 - 3.8 cm LVOT Diameter 1.8 cm Aortic Root Diameter 2.7 cm LA Systolic Diameter LX 3.3 cm 3.0 - 4.0 / 2.7 - 3.8 cm LA Volume 21.0 cm 18 - 58 / 22 - 52 cm Ascending Aorta Diameter 2.5 cm DOPPLER AV Peak Velocity 159.0 cm/s AV Peak Gradient 10.1 mmHg AV Mean Velocity 114.0 cm/s AV Mean Gradient 6.0 mmHg AV Velocity Time Integral 30.6 cm LVOT Peak Velocity 131.0 cm/s LVOT Peak Gradient 6.9 mmHg LVOT Mean Velocity 83.9 cm/s LVOT Mean Gradient 3.0 mmHg LVOT Velocity Time Integral 24.7 cm LVOT Stroke Volume 62.9 cm AV Area Cont Eq vti 2.1 cm AV Area Cont Eq pk 2.1 cm MV Peak Velocity 106.0 cm/s MV Peak Gradient 4.5 mmHg MV Mean Velocity 77.6 cm/s MV Mean Gradient 3.0 mmHg Mitral E Point Velocity 93.3 cm/s Mitral A Point Velocity 109.0 cm/s Mitral E to A Ratio 0.9 MV PHT Velocity 112.5 cm/s MV Deceleration [place] 709.0 cm/s MV Pressure Half Time 47.6 ms MV Area PHT 4.6 cm MV Deceleration Time 87.0 ms TR Peak Velocity 121.0 cm/s TR Peak Gradient 5.9 mmHg Right Atrial Pressure 5.0 mmHg Pulmonary Artery Systolic Pressu 10.9 mmHg Right Ventricular Systolic Press 10.9 mmHg PV Peak Velocity 103.0 cm/s PV Peak Gradient 4.2 mmHg PV Mean Velocity 71.9 cm/s PV Mean Gradient 2.0 mmHg PV Velocity Time Integral 21.9 cm LV E' Lateral Velocity 14.2 cm/s Mitral E to LV E' Lateral Ratio 6.6 LV E' Septal Velocity 9.5 cm/s Mitral E to LV E' Septal Ratio 9.9
== END 2016-06-14 14:55 | DRG 383 ==
LOC: ENRESERVDT → ENRESERVTM → ERH 18:28 → ENPENDDIS 22:24 → ERHI 22:24 → 2NA 22:24
PROVIDERS: Emergency Medicine; Internal Medicine; Internal Medicine Hematology & Oncology; ADMIT Internal Medicine
DX: L03.115 Cellulitis of right lower limb (principal); N17.9 Acute kidney failure, unspecified; E66.01 Morbid (severe) obesity due to excess calories; F11.20 Opioid dependence, uncomplicated; L97.919 Non-pressure chronic ulcer of unspecified part of right lower leg with unspecified severity; I87.2 Venous insufficiency (chronic) (peripheral); Z68.42 Body mass index [BMI] 45.0-49.9, adult; G89.29 Other chronic pain; K21.9 Gastro-esophageal reflux disease without esophagitis; F32.9 Major depressive disorder, single episode, unspecified; F41.9 Anxiety disorder, unspecified; E11.9 Type 2 diabetes mellitus without complications; M54.9 Dorsalgia, unspecified; D64.9 Anemia, unspecified; Z79.4 Long term (current) use of insulin
CPT/HCPCS: 2NASP; ERO; 36415; 73630-LT; 73630-RT; 80307; 81003; 82436; 87040; 93005; 93010; 93306; 99233; G0463; J0690; J1644

== ENCOUNTER 2016-09-01 16:14 | Emergency (ER) | payer OTHER ==
[~2016-09-01 16:14] MED LIST changes: +BENTYL10 M1 PO; +GLUCOPHAGE1000 M1 PO; +LANTUS SOL100 UNIT/1 SC; +LASIX40 M1 PO; +METHADONE10 MG/1 M2 PO; +POTASSIUM CHLO10 ME4 PO; +QUETIAPINE FUM100 M1 PO; +QUETIAPINE FUM400 M1 PO; +TRAZODONE HCL150 M1 PO
[2016-09-01 16:20] VITALS: BP 119/71
[2016-09-01 16:53] LABS: ABSOLUTE BASOPHIL COUNT 0 /CUMM (0.0-0.2); ABSOLUTE EOSINOPHIL COUNT 0.1 /CUMM (0.0-0.7); ABSOLUTE GRANULOCYTE CT 3.6 /CUMM (1.4-6.5); ABSOLUTE LYMPH COUNT 1.6 /CUMM (1.2-3.4); ABSOLUTE MONOCYTE COUNT 0.5 /CUMM (0.10-0.60); BASOPHIL % 0.2 % (0.0-2.0); EOSINOPHIL % 1.7 % (0-5); GRANULOCYTE % 62.6 % (42.2-75.2); HEMATOCRIT 32.2 % (37-47); MEAN CORPUSCULAR HGB 26.6 PG (27.0-31.0); MEAN CORPUSCULAR HGB CONC 32.6 G/DL (33.0-37.0); MEAN CORPUSCULAR VOLUME 81.8 FL (81.0-99.0); MEAN PLATELET VOLUME 6.8 FL (7.4-10.4); PLATELET COUNT 216 /CUMM (130-400); RBC DISTRIBUTION WIDTH 13.2 % (11.5-14.5); RED BLOOD CELL CT 3.94 /CUMM (4.20-5.40); WHITE BLOOD CELL COUNT 5.8 /CUMM (4.8-10.8)
--- NOTE | 2016-09-01 17:28 | RADIOLOGY REPORT ---
EXAMINATION: XR CHEST CLINICAL INFORMATION: Productive cough and fever. COMPARISON: 02/27/16. TECHNIQUE: 2 views of the chest were obtained. FINDINGS: No significant abnormality is noted involving the heart, lungs, mediastinum, bony thorax or soft tissues. No focal consolidation or other abnormality is demonstrated. Multilevel spondylosis is present in the thoracic spine. IMPRESSION: Unremarkable examination.
[2016-09-01] MEDS ORDERED: ALLEGRA ALLERG180 M1 PO (19:34)
[2016-09-01] MEDS ORDERED: NYSTATIN15 G2 TOP (19:34)
[2016-09-01] MEDS ORDERED: TESSALON PERLE100 M1 PO (19:34)
--- NOTE | 2016-09-01 19:34 | ED INFLUENZA/URI COMPLAINT ---
History of Present Illness General Chief Complaint: Dyspnea (COPD, CHF, Other) Stated Complaint: SOB Source: patient Exam Limitations: no limitations Vital Signs & Intake/Output Vital Signs & Intake/Output Vital Signs Date Time Temp Pulse Resp B/P B/P Pulse O2 O2 Flow FiO2 Mean Ox Delivery Rate 09/01 1620 99.1 114 20 119/71 94 Room Air Room Air Allergies Coded Allergies: Sulfa (Sulfonamide Antibiotics) (Intermediate, RASH, BUT OK WITH BACTRIM ) cephalexin (From Keflex) (Intermediate, RASH/ANKLE SWELLING 06/11/16) influenza virus vaccine tv 2012-(18-49 yrs),rcmb (From Flublok) (Intermediate, RASH/SWELLING 06/11/16) pneumococcal vaccine (From Pneumovax 23) (Intermediate, RASH/SWELLING 06/11/16) acetaminophen (From Tylenol) (Severe, INCREASES LIVER ENZYMES 06/11/16) erythromycin base (Intermediate, GI UPSET 06/11/16) ibuprofen (Intermediate, GI UPSET 06/11/16) ketorolac (From Toradol) (Intermediate, GI UPSET 06/11/16) naproxen (Intermediate, GI UPSET 06/11/16) Reconcile Medications Benzonatate (Tessalon Perle) 100 MG CAPSULE 1 CAP PO TID COUGH Benzonatate (Tessalon Perle) 100 MG CAPSULE 1 CAP PO TID PRN COUGH Dicyclomine Hydrochloride (Bentyl) 10 MG CAPSULE 20 MG PO TID ABD CRAMPING ( Reported) Duloxetine HCl (Cymbalta) 60 MG CAPSULE.DR 2 CAP PO QPM DEPRESSION (Reported) Fexofenadine HCl (Andree Allergy) 180 MG TABLET 1 TAB PO DAILY ALLERGIC RHINITIS Furosemide (Lasix) 40 MG TABLET 1 TAB PO BID DIURETIC (Reported) Hydroxyzine Pamoate (Vistaril) 50 MG CAPSULE 2 CAP PO TID ANXIETY (Reported) Insulin Glargine,Hum.rec.anlog (Lantus Solostar) 100 UNIT/ML (3 ML) INSULN.PEN 10 UNIT SC QAM DM (Reported) Insulin Glargine,Hum.rec.anlog (Lantus Solostar) 100 UNIT/ML (3 ML) INSULN.PEN 15 UNITS SC QPM DM (Reported) Metformin HCl (Glucophage) 1,000 MG TABLET 1 TAB PO BID DM (Reported) Methadone HCl 10 MG/ML ORAL.CONC 75 MG PO DAILY CHRONIC PAIN (Reported) Neomycin/Polymyxin B Sulf/Hc (Bxauepel-Ertqgummq-Ao Ear Soln) 3.5 MG/ML-10,000 UNIT/ML-1 % SOLUTION 4 DROP AD TID PRN EAR INFECTION Nystatin 100,000 UNIT/GRAM POWDER 1 ROBERT TOP TID CANDIDIASIS Pantoprazole Sodium 40 MG TABLET.DR 1 TAB PO DAILY AC GI (Reported) Potassium Chloride 10 MEQ TABLET.ER 1 TAB PO BID SUPPLEMENT (Reported) Quetiapine Fumarate 400 MG TABLET 1 TAB PO QPM SLEEP/MENTAL HEALTH (Reported) Quetiapine Fumarate 100 MG TABLET 1 TAB PO QAM MENTAL HEALTH (Reported) Trazodone HCl 150 MG TABLET 2 TAB PO QHS SLEEP/MENTAL HEALTH (Reported) Triage Note: PT TO ED FOR DIFF BREATHING, HOARSE VOICE X FEW DAYS, EAR ACHES, PRODUCTIVE COUGH WITH YELLOW SPUTUM. SUBJECTIVE FEVERS 102 AT HOME. 99.1 IN TRIAGE. +NAUSEA Triage Nurses Notes Reviewed? yes HPI: 51F WITH 1 WEEK OF SORE THROAT, CONGESTION, WELL ERYTHEMATOUS PRURITIC RASH IN ABDOMINAL PANNUS. DENIES FEVER, CHILLS, HEADACHE, NECK STIFFNESS, CHEST PAIN, SPUTUM, SOB, PALPITATIONS, LIGHTHEADEDNESS, ABDOMINAL PAIN, DIARRHEA, DYSURIA Past History Travel History Traveled to [place] past 21 day No Medical History Any Pertinent Medical History? 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 No Review of Systems Review of Systems Constitutional: Reports: no symptoms. EENTM: Reports: see HPI. Respiratory: Reports: see HPI. Cardiovascular: Reports: no symptoms. GI: Reports: no symptoms. Genitourinary: Reports: no symptoms. Musculoskeletal: Reports: no symptoms. Skin: Reports: see HPI. Neurological/Psychological: Reports: no symptoms. Hematologic/Endocrine: Reports: no symptoms. Immunologic/Allergic: Reports: no symptoms. All Other Systems: Reviewed and Negative Physical Exam Physical Exam General Appearance: well developed/nourished, no apparent distress, alert Head: atraumatic, normal appearance Eyes: Bilateral: normal appearance. Ears, Nose, Throat: normal ENT inspection, moist mucous membrane, Tympanic normal Neck: normal inspection, supple, full range of motion Respiratory: normal breath sounds, no respiratory distress, quiet respiration Cardiovascular: regular rate/rhythm Gastrointestinal: soft, non-tender Back: normal inspection, normal range of motion Extremities: normal inspection, normal range of motion, no edema Neurologic/Psych: no motor/sensory deficits Skin: CANDIDAL RASH IN INTERTRIGINOUS PANNUS SPACE Core Measures Severe Sepsis Present: No Septic Shock Present: No Progress Differential Diagnosis: influenza, meningitis, neutropenia, otitis, pneumonia, pharyngitis, sinusitis Plan of Care: Orders Procedure Date/time Status URINALYSIS 09/01 1724 Complete TROPONIN LEVEL 09/01 1618 Complete COMPREHENSIVE METABOLIC PANEL 09/01 1618 Complete CBC WITHOUT DIFFERENTIAL 09/01 1618 Complete EKG 09/01 1618 Active Laboratory Tests 09/01/16 1725: Urine Color STRAW, Urine Clarity CLEAR, Urine pH 7.0, Ur Specific [place] 1.010, Urine Protein NEG, Urine Ketones NEG, Urine Nitrite NEG, Urine Bilirubin NEG, Urine Urobilinogen 0.2, Ur Leukocyte Esterase NEG, Ur Microscopic EXAM NOT REQUIRED, Urine Hemoglobin NEG, Urine Glucose NEG 09/01/16 1640: Anion Gap 10, Estimated GFR > 60, BUN/Creatinine Ratio 17.8, Glucose 129 H, Calcium 8.9, Total Bilirubin 0.6, AST 119 H, ALT 86 H, Alkaline Phosphatase 125, Troponin I < 0.01, Total Protein 6.9, Albumin 3.3 L, Globulin 3.6, Albumin /Globulin Ratio 0.9 L, CBC w Diff NO MAN DIFF REQ, RBC 3.94 L, MCV 81.8, MCH 26.6 L, RDW 13.2, MPV 6.8 L, Gran % 62.6, Lymphocytes % 27.4, Monocytes % 8.1, Eosinophils % 1.7, Basophils % 0.2, Absolute Granulocytes 3.6, Absolute Lymphocytes 1.6, Absolute Monocytes 0.5, Absolute Eosinophils 0.1, Absolute Basophils 0, PUBS MCHC 32.6 L GIVEN NYSTATIN POWDER FOR CANDIDAL RASH, TESSALON PERLES FOR COUGH, RECOMMENDED STEROID NASAL SPRAY FOR POST-NASAL DRIP BUT PATIENT REFUSES, WILL TRY ORAL ANTI- HISTAMINES. (SARAH CERRATO,ANAY) Initial ED EKG: none Departure Departure Time of Disposition: 1920 Disposition: HOME OR SELF CARE Condition: Stable Clinical Impression Primary Impression: Allergic rhinitis Secondary Impressions: Intertriginous candidiasis, Post-nasal drip Referrals: ELIZABETH PASTOR MD (PCP/Family) Additional Instructions: KEEP YOUR RASH CLEAN AND VERY DRY, APPLY THE NYSTATIN POWDER DIRECTED. RECOMMEND OTC ALLERGY PILLS FOR POST-NASAL DRIP OR NASONEX IF YOU CAN TOLERATE IT. FOLLOW UP WITH YOUR PCP. Departure Forms: Customer Survey General Discharge Information Prescriptions: Current Visit Scripts Benzonatate (Tessalon Perle) 1 CAP PO TID #30 CAP Nystatin 1 ROBERT TOP TID #1 UNIT Fexofenadine HCl (Andree Allergy) 1 TAB PO DAILY #30 TAB
== END 2016-09-01 19:45 ==
LOC: ERH 16:14
PROVIDERS: Emergency Medicine
DX: J30.9 Allergic rhinitis, unspecified (principal); B37.2 Candidiasis of skin and nail; Z87.891 Personal history of nicotine dependence
CPT/HCPCS: 81003; 93005; 93010

== ENCOUNTER 2017-03-26 12:10 | Inpatient (IN) | payer OTHER ==
[~2017-03-26] VITALS: Ht 149.9 cm; Wt 106.6 kg
[~2017-03-26 12:10] MED LIST changes: +ALLEGRA ALLERG180 M1 PO; +AURALGAN AD; +NYSTATIN15 G2 TOP
[2017-03-26 14:10] LABS: ABSOLUTE BASOPHIL COUNT 0 /CUMM (0.0-0.2); ABSOLUTE EOSINOPHIL COUNT 0.2 /CUMM (0.0-0.7); ABSOLUTE GRANULOCYTE CT 3.6 /CUMM (1.4-6.5); ABSOLUTE LYMPH COUNT 1.8 /CUMM (1.2-3.4); ABSOLUTE MONOCYTE COUNT 0.5 /CUMM (0.10-0.60); BASOPHIL % 0.3 % (0.0-2.0); EOSINOPHIL % 2.8 % (0-5); GRANULOCYTE % 58.2 % (42.2-75.2); HEMATOCRIT 32.8 % (37-47); MEAN CORPUSCULAR HGB 25.5 PG (27.0-31.0); MEAN CORPUSCULAR HGB CONC 32.1 G/DL (33.0-37.0); MEAN CORPUSCULAR VOLUME 79.2 FL (81.0-99.0); MEAN PLATELET VOLUME 6.4 FL (7.4-10.4); PLATELET COUNT 292 /CUMM (130-400); RBC DISTRIBUTION WIDTH 13.8 % (11.5-14.5); RED BLOOD CELL CT 4.13 /CUMM (4.20-5.40); WHITE BLOOD CELL COUNT 6.1 /CUMM (4.8-10.8)
[2017-03-26 14:21] LABS: PT 11.4 SEC (9.4-12.5); PTT 29 SEC (25-37)
--- NOTE | 2017-03-26 15:45 | ED UPPER/LOWER EXTREMITY COMPL ---
History of Present Illness General Chief Complaint: General Adult Stated Complaint: SIB MD JOHN FOR ADMISSION Source: patient, old records Exam Limitations: no limitations Vital Signs & Intake/Output Vital Signs & Intake/Output Vital Signs Date Time Temp Pulse Resp B/P B/P Pulse O2 O2 Flow FiO2 Mean Ox Delivery Rate 03/28 1352 98.6 100 18 110/70 93 Room Air 03/28 0623 98.6 102 20 118/70 97 Room Air 03/27 2219 98.0 103 20 128/70 97 ED Intake and Output 03/28 0000 03/27 1200 Intake Total 850 450 Output Total Balance 850 450 Intake, IV 130 250 Intake, Oral 720 200 Allergies Coded Allergies: Sulfa (Sulfonamide Antibiotics) (Intermediate, RASH, BUT OK WITH BACTRIM ) cephalexin (From Keflex) (Intermediate, RASH/ANKLE SWELLING 06/11/16) influenza virus vaccine tv 2012-(18-49 yrs),rcmb (From Flublok) (Intermediate, RASH/SWELLING 06/11/16) pneumococcal vaccine (From Pneumovax 23) (Intermediate, RASH/SWELLING 06/11/16) acetaminophen (From Tylenol) (Severe, INCREASES LIVER ENZYMES 06/11/16) erythromycin base (Intermediate, GI UPSET 06/11/16) ibuprofen (Intermediate, GI UPSET 06/11/16) ketorolac (From Toradol) (Intermediate, GI UPSET 06/11/16) naproxen (Intermediate, GI UPSET 06/11/16) Triage Note: PT TO ED WITH C/O BILATERAL LOWER REDNESS AND PAIN, JUST DC FROM [facility] 2 WEEKS AGO FOR RIGHT LEG INFECTION. "I DID THE DRESSINGS LIKE THEY SAID, BUT I FELL ASLEEP WITH THEM ON A COUPLE OF TIMES, AND YOU'RE NOT SUPPOSED TO DO THAT". Triage Nurses Notes Reviewed? yes Onset: Abrupt Duration: week(s): (1), constant, getting worse Timing: recent history Severity: moderate Severity Numbers: 9 Pain/Injury Location: Bilateral: Leg. Method of Injury: unknown No Modifying Factors: none Associated Symptoms: swelling, redness HPI: 52 YEAR Old female with pmh of opiate abuse on methadone (75mg/d) with chronic back pain, GERD, DM, anxiety, depression, chronic venous stasis presents to ER for evaluation sent in by her wound care doctor Dr. VELEZ for admission. The patient was recently discharged from the wound center 2 weeks ago. She states that she fell asleep with her dressings in place and ever since she's had worsening redness warmth and pain to her shins. She reports that she's had a fever as high 102.5 yesterday. She is not currently on any antibiotics. She saw her wound care doctor who sent her down stairs to be admitted. No shortness of breath no chest pain abdominal pain nausea vomiting. She states her blood sugars have been running in the 140s. She denies any trauma to her legs (Leeroy Vidal) Reconcile Medications Amoxicillin/Potassium Clav (Augmentin 875-125 Tablet) 875 MG-125 MG TABLET 1 TAB PO BID Cellulitis Dicyclomine Hydrochloride (Bentyl) 10 MG CAPSULE 20 MG PO TID ABD CRAMPING ( Reported) Duloxetine HCl (Cymbalta) 60 MG CAPSULE.DR 2 CAP PO QPMP Depression (Reported ) Furosemide (Lasix) 40 MG TABLET 1 TAB PO BID DIURETIC (Reported) Hydroxyzine Pamoate (Vistaril) 50 MG CAPSULE 2 CAP PO TID ANXIETY (Reported) Insulin Glargine,Hum.rec.anlog (Lantus Solostar) 100 UNIT/ML (3 ML) INSULN.PEN 10 UNIT SC QAM DM (Reported) Insulin Glargine,Hum.rec.anlog (Lantus Solostar) 100 UNIT/ML (3 ML) INSULN.PEN 15 UNITS SC QPM DM (Reported) Metformin HCl (Glucophage) 1,000 MG TABLET 1 TAB PO BID DM (Reported) Methadone HCl 10 MG/ML ORAL.CONC 80 MG PO DAILY CHRONIC PAIN (Reported) Nystatin 100,000 UNIT/GRAM POWDER 1 ROBERT TOP TID CANDIDIASIS Oxycodone HCl/Acetaminophen (Percocet 10-325 MG Tablet) 10 MG-325 MG TABLET 1 TAB PO 4 TIMES/DAY PRN Severe pain Pantoprazole Sodium 40 MG TABLET.DR 1 TAB PO DAILY AC GI (Reported) Potassium Chloride 10 MEQ TABLET.ER 1 TAB PO BID SUPPLEMENT (Reported) Quetiapine Fumarate 100 MG TABLET 1 TAB PO QAM MENTAL HEALTH (Reported) Quetiapine Fumarate (Seroquel) 100 MG TABLET 5 TAB PO QPM Depression ( Reported) Trazodone HCl 150 MG TABLET 2 TAB PO QHS SLEEP/MENTAL HEALTH (Reported) (Paula CERRATO,Tabitha) Past History Travel History Traveled to [place] past 21 day No Medical History Any Pertinent Medical History? 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 No (Jose ZUÑIGA,Leeroy) Review of Systems Review of Systems Constitutional: Reports: see HPI. Comments Review of systems: See HPI, All other systems negative. Constitutional chills fever, HEENT: no sore throat no congestion Cardiovascular: No chest pain Skin: SEE HPI Respiratory: No dyspnea no cough no sputum GI: No nausea no vomiting, no diarrhea, no bloating/constipation : No dysuria Muscle skeletal: No joint pain, no back pain, no neck pain, Neurologic: , no headache Psych: No stress Heme/endocrine: No bruising Immunology: No lymphadenopathy (Jose ZUÑIGA,Leeroy) Physical Exam Physical Exam General Appearance: well developed/nourished, alert, awake Comments: Well-developed well-nourished person in no acute distress HEENT: Normal EENT exam; PERRL, EOMI,HEAD is atraumatic. moist mucous membranes. Neck: Supple, normal range of motion Back: Full range of motion Cardiovascular: Regular rate and rhythms no murmurs Respiratory:No respiratory distress. Patient speaking in full complete sentences. Breath sounds clear to auscultation bilaterally: NO W/R/R Abdomen: Soft, OBESE, nontender nondistended, Normal bowel sounds. No rebound/ guarding, Extremity: No edema, full range of motion of extremities, normal and equal pulses bilaterally, 5 out of 5 strength noted to bilateral upper and lower extremities Neuro: Alert oriented x3, motor sensory normal, There were no obvious focal neurologic abnormalities. Skin: Erythema noted to bilateral shins, to the right lower watkins there is an open stage I wound, and 0.5 center scab, the legs are warm, there is no open wounds to the left leg Psych: Mood and affect is normal, memory and judgment is normal. (Jose ZUÑIGA,Leeroy) Progress Differential Diagnosis: arterial insufficiency, cellulitis, DVT, fracture, sprain Plan of Care: Orders Procedure Date/time Status Discharge Patient 03/28 UNK Active Current Medications Sig/Melody Start time Last Medication Dose Stop Time Status Admin Insulin Detemir 15 UNITS AT BEDTIME 03/28 2200 AC (Levemir) Furosemide 40 MG BID 03/28 1000 AC 03/28 (Lasix) 0911 Insulin Detemir 10 UNITS DAILY 03/28 1000 AC 03/28 (Levemir) 0908 Enoxaparin Sodium 40 MG DAILY 03/27 1000 AC 03/28 (Lovenox) 0909 Methadone HCl 80 MG DAILY 03/27 1000 AC 03/28 (Dolophine) 0906 Nystatin 1 ROBERT BID 03/27 1000 AC 03/28 (Mycostatin) 0909 Quetiapine Fumarate 100 MG QAM 03/27 1000 AC 03/28 (Seroquel) 0907 Insulin Aspart 0 TIDAC 03/27 0800 AC 03/28 (NovoLOG) 1159 Omeprazole 40 MG DAILY AC 03/27 0700 AC 03/28 (Prilosec) 0547 Ampicillin Sodium/ 3,000 MG Q6 03/26 2359 AC 03/28 Sulbactam Sodium 1159 (Unasyn) Sodium Chloride 100 ML (Normal Saline 0.9%) Dicyclomine HCl 20 MG TID 03/26 2200 AC 03/28 (Bentyl) 0906 Duloxetine HCl 120 MG QPM 03/26 2200 AC 03/27 (Cymbalta) 2228 Hydroxyzine HCl 50 MG TID 03/26 2200 AC 03/28 (Atarax) 0852 Quetiapine Fumarate 400 MG QPM 03/26 2200 AC 03/27 (Seroquel) 2228 Trazodone HCl 300 MG QPM 03/26 2200 AC (Desyrel) Acetaminophen 650 MG Q6P PRN 03/26 1745 AC (Tylenol) Ondansetron HCl 4 MG Q6P PRN 03/26 1745 AC (Zofran) Oxycodone/ 1 TAB Q6P PRN 03/26 1745 AC 03/28 Acetaminophen 0922 (Percocet) Loratadine 10 MG DAILY PRN 03/26 1700 AC (Claritin) CASE D/W DR GARCIA WHOS POKE WITH DR VELEZ WHO ADVISED ADMISSION. unasyn 3g iv ordered case d/w dr lang will admit. Initial ED EKG: normal intervals, normal p-waves, normal QRS complex, normal sinus rhythm Prior EKG: unchanged (Leeroy Vidal) Departure Departure Time of Disposition: 1601 Disposition: STILL A PATIENT Condition: Stable Clinical Impression Primary Impression: Cellulitis Referrals: Macrina Schrader MD (PCP/Family) Departure Forms: Customer Survey General Discharge Information Admission Note Spoke With: Madalyn Lang MD Documentation of Exam: Documentation of any treatments & extenuating circumstances including Concerns Regarding Discharge (functional status, medication knowledge or non-compliance, living conditions, etc.) that warrant an admission rather than observation: wound care consult, iv abx, trend labs and cultures, premature discharge would be medically harmful (Leeroy Vidal) Departure Prescriptions: Current Visit Scripts Amoxicillin/Potassium Clav (Augmentin 875-125 Tablet) 1 TAB PO BID #11 TAB Oxycodone HCl/Acetaminophen (Percocet 10-325 MG Tablet) 1 TAB PO 4 TIMES/DAY PRN Severe pain #12 TAB PA/EYELET MACHINE OPERATOR Co-Sign Statement Statement: ED Attending supervision documentation- [X] I saw and evaluated the patient. I have also reviewed all the pertinent lab results and diagnostic results. I agree with the findings and the plan of care as documented in the PA's/EYELET MACHINE OPERATOR's documentation. [X] I have reviewed the ED Record and agree with the PA's/EYELET MACHINE OPERATOR's documentation. [] Additions or exceptions (if any) to the PAs/EYELET MACHINE OPERATOR's note and plan are summarized below: [] (Paula CERRATO,Tabitha) (Leeroy Vidal) PA/EYELET MACHINE OPERATOR Co-Sign Statement Statement: ED Attending supervision documentation- [X] I saw and evaluated the patient. I have also reviewed all the pertinent lab results and diagnostic results. I agree with the findings and the plan of care as documented in the PA's/EYELET MACHINE OPERATOR's documentation. [X] I have reviewed the ED Record and agree with the PA's/EYELET MACHINE OPERATOR's documentation. [] Additions or exceptions (if any) to the PAs/EYELET MACHINE OPERATOR's note and plan are summarized below: [] (Paula CERRATO,Tabitha)
--- NOTE | 2017-03-26 17:03 | Admission Certification ---
Admission Certification Certification Statement - As attending physician, I certify that at the time of - admission, based on clinical presentation, severity of - symptoms, need for further diagnostic testing and - therapeutic interventions, and risk of adverse outcomes - without in-hospital treatment, in my clinical assessment, - this patient requires an acute hospital stay for a minimum - of two nights or longer. I have also considered psychsocial - factors such as support system, advanced age, financial - issues, cognitive issues, and failed out-patient treatments, - past re-admission history, safety of patient, and lack of - compliance as applicable. Specific rationale supporting this admission is: Cellulitis requiring IV abx
--- NOTE | 2017-03-26 17:34 | History & Physical ---
Isac CERRATO,[facility] 03/26/17 1734: General Information and HPI MD Statement: I have seen and personally examined LES MOREL and documented this H&P. The patient is a 52 year old F who presented with a patient stated chief complaint of [cellulitis]. Source of Information: patient, old records Exam Limitations: no limitations History of Present Illness: This is a 52 yo female with significant hx of opiate abuse on methadone, chronic back pain, GERD, DM, anxiety, chronic venous stasis, recurrent cellulitis who was sent in by wound care physician Dr. Albarran for cellulitis. Pt states that about 2 weeks ago she was seen at wound care clinic and was given compression bandage and wrap. She was told to take it off while asleep but forgot to do so several days. On 03/24/2016 she states she took off the compression stocking and part of her skin sloughed off. Since then she has experienced worsening erythema , pain (10/10 burning and stabbing in bilat LE) and fevers (Tmax 102.3 yesterday ). She made an appointment with wound care today and was suggested to come in. She denies any other symptoms other than usual achesa nd pains. No chest pain, SOB, abdominal pain, nausea, vomiting or change in bladder or bowel habits. She has significant drug allergies including Sulfa (but okay with Bactrim) and Keflex. Allergies/Medications Allergies: Coded Allergies: Sulfa (Sulfonamide Antibiotics) (Intermediate, RASH, BUT OK WITH BACTRIM ) cephalexin (From Keflex) (Intermediate, RASH/ANKLE SWELLING 06/11/16) influenza virus vaccine tv 2013-14(18-49 yrs),rcmb (From Flublok) (Intermediate, RASH/SWELLING 06/11/16) pneumococcal vaccine (From Pneumovax 23) (Intermediate, RASH/SWELLING 06/11/16) acetaminophen (From Tylenol) (Severe, INCREASES LIVER ENZYMES 06/11/16) erythromycin base (Intermediate, GI UPSET 06/11/16) ibuprofen (Intermediate, GI UPSET 06/11/16) ketorolac (From Toradol) (Intermediate, GI UPSET 06/11/16) naproxen (Intermediate, GI UPSET 06/11/16) Home Med list ANTIPYRINE/BENZOCAINE (Auralgan) 10 ML LUH 2 GTT AD Q3P PRN EAR PAIN Fill ear canal, then moisten cotton place in external ear repeat every 1-2 hours until pain and congestion are relieved Dicyclomine Hydrochloride (Bentyl) 10 MG CAPSULE 20 MG PO TID ABD CRAMPING ( Reported) Duloxetine HCl (Cymbalta) 60 MG CAPSULE.DR 2 CAP PO QPM DEPRESSION (Reported) Fexofenadine HCl (Andree Allergy) 180 MG TABLET 1 TAB PO DAILY ALLERGIC RHINITIS Furosemide (Lasix) 40 MG TABLET 1 TAB PO BID DIURETIC (Reported) Hydroxyzine Pamoate (Vistaril) 50 MG CAPSULE 2 CAP PO TID ANXIETY (Reported) Insulin Glargine,Hum.rec.anlog (Lantus Solostar) 100 UNIT/ML (3 ML) INSULN.PEN 10 UNIT SC QAM DM (Reported) Insulin Glargine,Hum.rec.anlog (Lantus Solostar) 100 UNIT/ML (3 ML) INSULN.PEN 15 UNITS SC QPM DM (Reported) Metformin HCl (Glucophage) 1,000 MG TABLET 1 TAB PO BID DM (Reported) Methadone HCl 10 MG/ML ORAL.CONC 75 MG PO DAILY CHRONIC PAIN (Reported) Neomycin/Polymyxin B Sulf/Hc (Sxtgqirm-Xoqievbac-Hb Ear Soln) 3.5 MG/ML-10,000 UNIT/ML-1 % SOLUTION 4 DROP AD TID PRN EAR INFECTION Nystatin 100,000 UNIT/GRAM POWDER 1 ROBERT TOP TID CANDIDIASIS Pantoprazole Sodium 40 MG TABLET.DR 1 TAB PO DAILY AC GI (Reported) Potassium Chloride 10 MEQ TABLET.ER 1 TAB PO BID SUPPLEMENT (Reported) Quetiapine Fumarate 400 MG TABLET 1 TAB PO QPM SLEEP/MENTAL HEALTH (Reported) Quetiapine Fumarate 100 MG TABLET 1 TAB PO QAM MENTAL HEALTH (Reported) Trazodone HCl 150 MG TABLET 2 TAB PO QHS SLEEP/MENTAL HEALTH (Reported) Past History Travel History Traveled to [place] past 21 day No Medical History Neurological: NONE EENT: NONE Cardiovascular: NONE Respiratory: pneumonia Gastrointestinal: colitis, diverticulitis, pancreatitis, ACID REFLUX C DIFF LA grade B esophagitis, erosive gastropathy Hepatic: NONE Renal: NONE Musculoskeletal: NONE Psychiatric: NARCOTIC ABUSE CHRONIC PAIN MANAGEMENT Endocrine: diabetes Blood Disorders: NONE Cancer(s): NONE 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 Exam & Diagnostic Data Last 24 Hrs of Vital Signs/I&O Vital Signs Date Time Temp Pulse Resp B/P B/P Pulse O2 O2 Flow FiO2 Mean Ox Delivery Rate 03/26 1639 98.7 110 19 108/72 94 Room Air 03/26 1253 98.4 112 18 117/74 96 Room Air Room Air Intake & Output 03/26 1600 03/26 0800 03/26 0000 Intake Total Output Total Balance Patient 106.594 kg Weight Weight Reported by Patient Measurement Method Physical Exam General Appearance Alert, Oriented X3, Cooperative, No Acute Distress Skin bilat LE with erythema and warmth in watkins. R worse than left. there are open wounds with serosanguinous drainage on right side. HEENT Atraumatic, PERRLA, EOMI Neck Supple Cardiovascular Regular Rate, Normal S1, Normal S2, No Murmurs Lungs Normal Air Movement Extremities see skin Last 24 Hrs of Labs/Toby: Laboratory Tests 03/26/17 1356: Anion Gap 15, Estimated GFR 53 L, BUN/Creatinine Ratio 16.4, Glucose 172 H, Lactic Acid 1.9, Calcium 8.7, Total Bilirubin 0.3, AST 53 H, ALT 46, Alkaline Phosphatase 123, Total Protein 8.0, Albumin 3.8, Globulin 4.2, Albumin/Globulin Ratio 0.9 L, PT 11.4, INR 1.09, APTT 29, CBC w Diff NO MAN DIFF REQ, RBC 4.13 L, MCV 79.2 L, MCH 25.5 L, RDW 13.8, MPV 6.4 L, Gran % 58.2, Lymphocytes % 30.0, Monocytes % 8.7, Eosinophils % 2.8, Basophils % 0.3, Absolute Granulocytes 3.6, Absolute Lymphocytes 1.8, Absolute Monocytes 0.5, Absolute Eosinophils 0.2, Absolute Basophils 0, PUBS MCHC 32.1 L Microbiology 03/26 1610 BLOOD: Blood Culture - RECD 03/26 1600 BLOOD: Blood Culture - RECD Assessment/Plan Assessment: This is a 52 yo female with significant hx of opiate abuse on methadone, chronic back pain, GERD, DM, anxiety, chronic venous stasis, recurrent cellulitis who was sent in by wound care physician Dr. Albarran for cellulitis. Will be admitted to [facility] floor for further work up and management. PLAN: 1. Cellulitis: In hospital pt afebrile w/o white count. She has c/o fever 102.3 yesterday at home. Her cellulitis likely 2/2 trauma from removing her stockings. No evidence of purulent cellulitis * Continue unasyn 3mg q6 * monitor CBC * Pain mgmt with morphine and percocet * Wound consult in AM * Bcx x 2 2. Depression/Anxiety/Opiate abuse: * Con't Cymbalta * Con't Vistaril * Con't Methadone-Pt states that she now takes 80mg (up from 75) verify in AM. * Con't Quetiapine-She states she is taking 500 at night. Started on 300 per previous CMR but if necessary increase per discretion. She is on large doses of many sedating meds. * Con't Trazadone 3. ??Renal injury: Looks like her baseline Cr is around .9 but today at 1.1. Does not meet criteria for DIPESH. But monitor. * IVF X1. * Encourage PO hydration * Holding lasix * Holding KCl 4. DM: * RISS * FS * Heart healthy diet * Hold metformin As Ranked By This Provider Problem List: 1. Cellulitis Core Measures/Misc (12/01) Acute Coronary Syndrome ACS Diagnosis: No Congestive Heart Failure Congestive Heart Failure Diagnosis No Cerebrovascular Accident CVA/TIA Diagnosis: No VTE (View Protocol) VTE Risk Factors Age>40 No Mechanical VTE Prophylaxis d/t N/A MechProphylax Ordered No VTE Pharm Prophylaxis d/t NA PharmProphylax ordered Sepsis (View protocol) Sepsis Present: No Madalyn Lang MD 03/26/172109: Past Family/Social History Psychosocial History Other Social History: FAMILY HISTORY NOT CONTRIBUTORY TO PRESENT ILLNESS. 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 She has a history of lower extremity wounds. She was here in May where she was treated for questionable cellulitis and bilateral lower extremity ulcers. She returns today after being seen in the wound care center with bilateral lower extremity ulcers. The one on the right watkins appears erythematous and tender. She doesn't have a fever or white count and says that she is allergic to Keflex. She has received Unasyn in the past and tolerated it well. We'll bring her into [facility] and treat her as a cellulitis with IV antibiotics. Will follow-up with wound care consult. Contune her opiates and psychiatric meds. She is asking for IV narcotics and will need to use that judiciously given her high dose of Methadone. DVT prophylaxis and f/ u
[2017-03-26 19:51] VITALS: BP 124/72
[2017-03-27 06:47] VITALS: BP 118/70
--- NOTE | 2017-03-27 11:45 | PN- Housestaff ---
Subjective Follow-up For: Cellulitis Depression/Anxiety/Opiate dependence Subjective: The patient was seen and examined. She states that her lower extremity pain is 10/10 however does not she seem to be in any distress. She denies any headache, dizziness, lightheadedness, nausea, vomiting, abdominal pain, urinary symptoms. The patient states that she is on 80 mg methadone daily for opiate use disorder and that [facility]. Called and confirmed with [facility], the patient is on 80 mg methadone daily. Her last visit was 03/26/17. Review of Systems Constitutional: Reports: see HPI. Objective Last 24 Hrs of Vital Signs/I&O Vital Signs Date Time Temp Pulse Resp B/P B/P Pulse O2 O2 Flow FiO2 Mean Ox Delivery Rate 03/27 1356 98.1 99 20 118/80 91 Room Air 03/27 0647 97.9 104 20 118/70 95 Room Air 03/26 1951 98.0 108 18 124/72 98 03/26 1844 98.4 102 16 110/68 96 Room Air 03/26 1639 98.7 110 19 108/72 94 Room Air Intake & Output 03/27 1600 03/27 0800 03/27 0000 Intake Total 850 450 100 Output Total Balance 850 450 100 Intake, IV 130 250 Intake, Oral 720 200 100 Patient 235 lb Weight Weight Bed scale Measurement Method Physical Exam General Appearance: Alert, Oriented X3, Cooperative, No Acute Distress Skin: chronic venous stasis skin changes changes with healing wounds., erythema present on both lower extremities., several small venous stasis ulcers over the left lower extremity HEENT: Atraumatic, PERRLA, EOMI, Mucous Membr. moist/pink Neck: Supple, No JVD, No thryomegaly, +2 Carotid Pulse wo Bruit, No LAD Lymphatic: Cervical nl Cardiovascular: Regular Rate, Normal S1, Normal S2, No Murmurs, Gallops, Rubs Lungs: Clear to Auscultation, Normal Air Movement Abdomen: Normal Bowel Sounds, Soft, No Tenderness, No Hepatospenomegaly, No Masses Extremities: No Clubbing, No Cyanosis, No Edema, Normal Pulses, No Tenderness/ Swelling, see skin exam Vascular: Normal Pulses, Pulses Symmetrical Current Medications: Current Medications Sig/Melody Start time Last Medication Dose Route Stop Time Status Admin Acetaminophen 650 MG Q6P PRN 03/26 1745 AC PO Ampicillin Sodium/ 3,000 MG Q6 03/26 2359 AC 03/27 Sulbactam Sodium IV 1201 Sodium Chloride 100 ML Ampicillin Sodium/ 0 .STK-MED ONE 03/26 1710 DC Sulbactam Sodium .ROUTE Ampicillin Sodium/ 3,000 MG ONCE ONE 03/26 1600 DC 03/26 Sulbactam Sodium IV 03/26 1629 1700 Sodium Chloride 100 ML Dicyclomine HCl 20 MG TID 03/26 2200 AC 03/27 PO 1002 Duloxetine HCl 120 MG QPM 03/26 2200 AC 03/26 PO 2112 Enoxaparin Sodium 40 MG DAILY 03/27 1000 AC 03/27 SC 1003 Hydromorphone HCl 0.6 MG ONCE ONE 03/26 2045 DC 03/26 IV 03/26 204 2109 Hydromorphone HCl 0 .STK-MED ONE 03/26 1710 DC .ROUTE Hydromorphone HCl 1 MG ONCE ONE 03/26 1600 DC 03/26 IV 03/26 1601 1700 Hydroxyzine HCl 50 MG TID 03/26 2200 AC 03/27 PO 1002 Insulin Aspart 0 TIDAC 03/27 0800 AC 03/27 SC 1218 Loratadine 10 MG DAILY PRN 03/26 1700 AC PO Lorazepam 0 .STK-MED ONE 03/26 1811 DC PO Lorazepam 1 MG ONE ONE 03/26 1745 DC 03/26 PO 03/26 1746 1810 Methadone HCl 80 MG DAILY 03/27 1000 AC 03/27 PO 1002 Morphine Sulfate 0 .STK-MED ONE 03/26 1844 DC .ROUTE Morphine Sulfate 2 MG Q4P PRN 03/26 1745 AC 03/27 IV 0820 Nystatin 1 ROBERT BID 03/27 1000 AC 03/27 TOP 1201 Omeprazole 40 MG DAILY AC 03/27 0700 AC 03/27 PO 0606 Ondansetron HCl 4 MG Q6P PRN 03/26 1745 AC IV Ondansetron HCl 0 .STK-MED ONE 03/26 1709 DC .ROUTE Ondansetron HCl 4 MG ONCE ONE 03/26 1600 DC 03/26 IV 03/26 1601 1700 Oxycodone/ 1 TAB Q6P PRN 03/26 1745 AC 03/27 Acetaminophen PO 1200 Quetiapine Fumarate 100 MG QAM 03/27 1000 AC 03/27 PO 1002 Quetiapine Fumarate 400 MG QPM 03/260 AC 03/26 PO 211 Trazodone HCl 300 MG QPM 03/26 2200 AC PO Last 24 Hrs of Lab/Toby Results Last 24 Hrs of Labs/Mics: Microbiology 03/26 1610 BLOOD: Blood Culture - RES 03/26 1600 BLOOD: Blood Culture - RES Assessment/Plan Assessment: This is a 52-year-old female with past medical history significant for diabetes, opiate use disorder, on methadone, chronic venous stasis follows with wound clinic, anxiety, GERD, chronic back pain who was sent to the [facility] for wound care clinic for further evaluation of lower extremity cellulitis. Impression/plan: #Lower extremity cellulitis: * Has remained afebrile * Blood cultures negative 03/27/2017 * Continue with IV Unasyn, today day 2 * On IV morphine 2 mg every 4 when necessary and Percocet 1 tab every 6 when necessary for pain management. #Chronic venous stasis ulcers: * Wound care consult appreciated * Wound care should be dressed with Xeroform to soften slough daily cleansing * Multilayer compression dressings prior to discharge * Follow-up with wound care clinic as an outpatient #Tachycardia: * Episode of tachycardia in 100s * States that she is in pain * EKG obtained which did not reveal any significant abnormalities or ST-T wave * Likely secondary to pain * TSH, free T4 within normal limits * Will check U tox; if negative for cocaine would consider beta lisset if no improvement #Opiate use disorder: * On methadone 80 mg daily, confirmed [facility] * Continue with same * She has required multiple doses of IV Dilaudid and IV morphine for pain management of her lower extremities, will to ideally stop all the opiate medications. #DM: * Monitor blood glucose levels * Insulin sliding scale * Diabetic/heart healthy diet * Holding oral hypoglycemic agents #Depression/anxiety: * Continue Cymbalta, trazodone, Seroquel, hydroxyzine #DVT PPX: SC Lovenox #CODE STATUS: * Full code Problem List: 1. Cellulitis Pain Ratin Pain Location: LEs Pain Goal: Pain 4 or less Pain Plan: When necessary Percocet, when necessary IV morphine Is also on methadone Tomorrow's Labs & Rationales: None
--- NOTE | 2017-03-27 13:50 | Cons- Wound Care ---
General Information and HPI Consulting Request Date of Consult: 03/27/17 Requested By: Madalyn Lang MD Reason for Consult: Lower extremity cellulitis History of Present Illness: Patient is 52-year-old woman with morbid obesity chronic venous stasis ulceration admitted for acute cellulitis the right lower extremity. Patient has been followed in the wound care center for recurrent bilateral lower extremity venous stasis ulcers. She was healed 2 weeks ago and placed into cercaide devices. Unfortunately she slept with these and develop recurrent wounds. She was seen in the wound care center where she reported fever and chills and was found to have significant erythema and warmth of her right lower extremity necessitating admission for treatment of right lower extremity cellulitis. Allergies/Medications Allergies: Coded Allergies: Sulfa (Sulfonamide Antibiotics) (Intermediate, RASH, BUT OK WITH BACTRIM ) cephalexin (From Keflex) (Intermediate, RASH/ANKLE SWELLING 06/11/16) influenza virus vaccine tv 2013-(18-49 yrs),rcmb (From Flublok) (Intermediate, RASH/SWELLING 06/11/16) pneumococcal vaccine (From Pneumovax 23) (Intermediate, RASH/SWELLING 06/11/16) acetaminophen (From Tylenol) (Severe, INCREASES LIVER ENZYMES 06/11/16) erythromycin base (Intermediate, GI UPSET 06/11/16) ibuprofen (Intermediate, GI UPSET 06/11/16) ketorolac (From Toradol) (Intermediate, GI UPSET 06/11/16) naproxen (Intermediate, GI UPSET 06/11/16) Home Med List: ANTIPYRINE/BENZOCAINE (Auralgan) 10 ML LUH 2 GTT AD Q3P PRN EAR PAIN Fill ear canal, then moisten cotton place in external ear repeat every 1-2 hours until pain and congestion are relieved Dicyclomine Hydrochloride (Bentyl) 10 MG CAPSULE 20 MG PO TID ABD CRAMPING ( Reported) Duloxetine HCl (Cymbalta) 60 MG CAPSULE.DR 2 CAP PO QPM DEPRESSION (Reported) Fexofenadine HCl (Andree Allergy) 180 MG TABLET 1 TAB PO DAILY ALLERGIC RHINITIS Furosemide (Lasix) 40 MG TABLET 1 TAB PO BID DIURETIC (Reported) Hydroxyzine Pamoate (Vistaril) 50 MG CAPSULE 2 CAP PO TID ANXIETY (Reported) Insulin Glargine,Hum.rec.anlog (Lantus Solostar) 100 UNIT/ML (3 ML) INSULN.PEN 10 UNIT SC QAM DM (Reported) Insulin Glargine,Hum.rec.anlog (Lantus Solostar) 100 UNIT/ML (3 ML) INSULN.PEN 15 UNITS SC QPM DM (Reported) Metformin HCl (Glucophage) 1,000 MG TABLET 1 TAB PO BID DM (Reported) Methadone HCl 10 MG/ML ORAL.CONC 75 MG PO DAILY CHRONIC PAIN (Reported) Neomycin/Polymyxin B Sulf/Hc (Unpuajed-Klzsvilme-Zk Ear Soln) 3.5 MG/ML-10,000 UNIT/ML-1 % SOLUTION 4 DROP AD TID PRN EAR INFECTION Nystatin 100,000 UNIT/GRAM POWDER 1 ROBERT TOP TID CANDIDIASIS Pantoprazole Sodium 40 MG TABLET.DR 1 TAB PO DAILY AC GI (Reported) Potassium Chloride 10 MEQ TABLET.ER 1 TAB PO BID SUPPLEMENT (Reported) Quetiapine Fumarate 400 MG TABLET 1 TAB PO QPM SLEEP/MENTAL HEALTH (Reported) Quetiapine Fumarate 100 MG TABLET 1 TAB PO QAM MENTAL HEALTH (Reported) Trazodone HCl 150 MG TABLET 2 TAB PO QHS SLEEP/MENTAL HEALTH (Reported) Review of Systems Review of Systems: She denies claudication or arterial disease Past History Travel History Traveled to [place] past 21 day No Medical History Blood Transfusion Hx: No Neurological: NONE EENT: NONE Cardiovascular: NONE Respiratory: pneumonia Gastrointestinal: colitis, diverticulitis, pancreatitis, ACID REFLUX C DIFF LA grade B esophagitis, erosive gastropathy Hepatic: NONE Renal: NONE Musculoskeletal: NONE Psychiatric: NARCOTIC ABUSE CHRONIC PAIN MANAGEMENT Endocrine: diabetes Blood Disorders: NONE Cancer(s): NONE 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 Exam & Diagnostic Data Vital Signs and I&O Vital Signs Result Date Time Pulse Ox 95 03/27 0647 B/P 118/70 03/27 0647 O2 Delivery Room Air 03/27 0647 Temp 97.9 03/27 0647 Pulse 104 03/27 0647 Resp 20 03/27 0647 O2 Flow Rate Room Air 03/26 1253 Intake & Output 03/27 0000 03/26 1600 03/26 0800 Intake Total 100 Output Total Balance 100 Intake, Oral 100 Patient 235 lb 235 lb Weight Weight Bed scale Reported by Patient Measurement Method Exam of her right lower extremity shows there to be significant edema and erythema present there are multiple venous stasis ulcers present on admission. These now have dry eschar the largest measuring approximately 2 x 1 cm. There is several small venous stasis ulcers over her left lower extremity. Assessment/Plan Impression/Plan: 52-year-old woman with multiple medical problems suspected sleep apnea and morbid obesity chronic venous insufficiency admitted with acute cellulitis of the right lower extremity secondary to recurrent venous stasis ulceration. Recommendation is made for aggressive leg elevation and antibiotics. Wound care should be dressed with Xeroform to soften slough daily cleansing. Prior to discharge she'll be placed in multilayer compression dressings with follow-up in the wound care center on Friday Consult Acknowledgment - Thank you for your consult request.
[2017-03-27 13:56] VITALS: BP 118/80
--- NOTE | 2017-03-27 15:40 | PN- Att Addend ---
Attending Addendum Attending Brief Note Patient seen and examined. Agree with resident's note. Appreciate wound care consult. Patient is extremely noncompliant and is here with a cellulitis. We are treating her with IV Unasyn and local wound care. I've explained to her clearly that we are not going to escalate the opiate regimen besides what she has right now which is the oral Percocet and the IV morphine as needed. She has a lot of demands with the opiates and she is also on chronic methadone therapy which makes things challenging. We'll continue IV antibiotics, local wound care and follow-up.
[2017-03-27 22:19] VITALS: BP 128/70
[2017-03-28 06:23] VITALS: BP 118/70
--- NOTE | 2017-03-28 07:12 | PN- Housestaff ---
See Addendum Subjective Follow-up For: Cellulitis Subjective: The patient was seen and examined. The patient denies any headache, dizziness, lightheadedness, nausea, vomiting, abdominal pain, urinary symptoms. She reports having pain in her lower extremities, but does not seen to be in any distress. Was seen by wound care physician this morning and was cleared to be discharged. Of note she is on methadone for opioid use disorder. Review of Systems Constitutional: Reports: no symptoms. Objective Last 24 Hrs of Vital Signs/I&O Vital Signs Date Time Temp Pulse Resp B/P B/P Pulse O2 O2 Flow FiO2 Mean Ox Delivery Rate 03/28 0623 98.6 102 20 118/70 97 Room Air 03/27 2219 98.0 103 20 128/70 97 03/27 1356 98.1 99 20 118/80 91 Room Air Intake & Output 03/28 1600 03/28 0800 03/28 0000 Intake Total 500 Output Total 200 Balance -200 500 Intake, IV 260 Intake, Oral 240 Output, Urine 200 Physical Exam General Appearance: Alert, Oriented X3, Cooperative, No Acute Distress Other Physical Findings: Skin: Improved compared to prior exam. Chronic venous stasis skin changes changes with healing wounds., erythema present on both lower extremities., several small venous stasis ulcers over the left lower extremity HEENT: Atraumatic, PERRLA, EOMI, Mucous Membr. moist/pink Neck: Supple, No JVD, No thryomegaly, +2 Carotid Pulse wo Bruit, No LAD Lymphatic: Cervical nl Cardiovascular: Regular Rate, Normal S1, Normal S2, No Murmurs, Gallops, Rubs Lungs: Clear to Auscultation, Normal Air Movement Abdomen: Normal Bowel Sounds, Soft, No Tenderness, No Hepatospenomegaly, No Masses Extremities: No Clubbing, No Cyanosis, No Edema, Normal Pulses, No Tenderness/ Swelling, see skin exam Vascular: Normal Pulses, Pulses Symmetrical Current Medications: Current Medications Sig/Melody Start time Last Medication Dose Route Stop Time Status Admin Acetaminophen 650 MG Q6P PRN 03/26 1745 AC PO Ampicillin Sodium/ 3,000 MG Q6 03/26 2359 AC 03/28 Sulbactam Sodium IV 0547 Sodium Chloride 100 ML Dicyclomine HCl 20 MG TID 03/260 AC 03/27 PO 2228 Duloxetine HCl 120 MG QPM 03/26 2200 AC 03/27 PO 2228 Enoxaparin Sodium 40 MG DAILY 03/27 1000 AC 03/27 SC 1003 Furosemide 40 MG BID 03/28 1000 AC PO Hydroxyzine HCl 50 MG TID 03/26 2200 AC 03/27 PO 2229 Insulin Aspart 0 TIDAC 03/27 0800 AC 03/27 SC 1855 Insulin Detemir 15 UNITS AT BEDTIME 03/28 2200 AC SC Insulin Detemir 10 UNITS DAILY 03/28 1000 AC SC Loratadine 10 MG DAILY PRN 03/26 1700 AC PO Methadone HCl 80 MG DAILY 03/27 1000 AC 03/27 PO 1002 Morphine Sulfate 2 MG Q4P PRN 03/26 1745 DC 03/28 IV 0553 Nystatin 1 ROBRET BID 03/27 1000 AC 03/27 TOP 2230 Omeprazole 40 MG DAILY AC 03/27 0700 AC 03/28 PO 0547 Ondansetron HCl 4 MG Q6P PRN 03/26 1745 AC IV Oxycodone/ 1 TAB Q6P PRN 03/26 1745 AC 03/27 Acetaminophen PO 2231 Quetiapine Fumarate 100 MG QAM 03/27 1000 AC 03/27 PO 1002 Quetiapine Fumarate 400 MG QPM 03/26 2200 AC 03/27 PO 2228 Trazodone HCl 300 MG QPM 03/26 2200 AC PO Last 24 Hrs of Lab/Toby Results Last 24 Hrs of Labs/Mics: Laboratory Tests 03/27/17 1606: Urine Opiates Screen > 4000.00 H, Methadone Screen > 735 H, Barbiturate Screen < 60, Ur Phencyclidine Scrn 13.50, Amphetamines Screen < 100, U Benzodiazepines Scrn 109, Urine Cocaine Screen 114, Urine Cannabis Screen < 5.00 Assessment/Plan Assessment: This is a 52-year-old female with past medical history significant for diabetes, opiate use disorder, on methadone, chronic venous stasis follows with wound clinic, anxiety, GERD, chronic back pain who was sent to the hospital for wound care clinic for further evaluation of lower extremity cellulitis. Impression/plan: #Lower extremity cellulitis: * Has remained afebrile * Blood cultures negative 03/27/2017 * Switch IV Unasyn to PO Augmentin to complete a total of seven-day course of AB therapy. * IV morphine discontinued, the patient is adamant that she is in severe pain most of the time, she states that she is not able to be discharged without any pain medications as she knows she is able to tolerate her pain. We'll discharge her with 12 tablets of Percocet. #Chronic venous stasis ulcers: * Wound care consult appreciated * Wound care should be dressed with Xeroform to soften slough daily cleansing * Multilayer compression dressings prior to discharge * Follow-up with wound care clinic as an outpatient #Tachycardia: * Episode of tachycardia in 100s * States that she is in pain * EKG obtained which did not reveal any significant abnormalities or ST-T wave * Likely secondary to pain * TSH, free T4 within normal limits * Will check U tox; if negative for cocaine #Opiate use disorder: * On methadone 80 mg daily, confirmed [employer] * Continue with same * She has required multiple doses of IV Dilaudid and IV morphine for pain management of her lower extremities. See above. 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 Cellulitis Pain Ratin Pain Location: Lower extremities Pain Goal: Pain 4 or less Pain Plan: To be discharged with 12 tablets of Percocet Tomorrow's Labs & Rationales: None
[2017-03-28] MEDS ORDERED: SEROQUEL100 M1 PO (08:15)
[2017-03-28] MEDS ORDERED: CYMBALTA60 M1 PO (08:16)
--- NOTE | 2017-03-28 09:15 | Patient Discharge Instructions ---
Discharge Instructions General Discharge Information You were seen/treated for: Cellulitis Special Instructions: -Please follow with your PCP within a week of discharge. -Please keep your legs elevated while at rest. -Please take your medications as instructed. -Please follow with wound care clinic as an outpatient. -Please return to the hospital if your symptoms not improve worsen. Diet Recommended Diet: Diabetic Activity Additional ACTIVITY Info: As tolerated. Acute Coronary Syndrome Inclusion Criteria At DC or during hospital stay patient has or had the following: ACS DIAGNOSIS No Discharge Core Measures Meds if any: Prescribed or Continued at Discharge Meds if any: NOT Prescribed or Continued at Discharge Congestive Heart Failure Inclusion Criteria At DC or during hospital stay patient has or had the following: CHF DIAGNOSIS No Discharge Core Measures Meds if any: Prescribed or Continued at Discharge Meds if any: NOT Prescribed or Continued at Discharge Cerebrovascular accident Inclusion Criteria At DC or during hospital stay patient has or had the following: CVA/TIA Diagnosis No Discharge Core Measures Meds if any: Prescribed or Continued at Discharge Meds if any: NOT Prescribed or Continued at Discharge Venous thromboembolism Inclusion Criteria VTE Diagnosis No VTE Type NONE VTE Confirmed by (Test) NONE Discharge Core Measures - Per Current guidelines, there needs to be overlap - treatment for the first 5 days of Warfarin therapy. - If discharged on Warfarin prior to 5 days of - overlap therapy, the patient will need to be - assessed for post discharge needs including - *Post discharge parental anticoagulation - *Warfarin and/or parental anticoagulation education - *Follow up date to check INR post discharge At least 5 days overlap therapy as Inpatient No Meds if any: Prescribed or Continued at Discharge Note: Overlap Therapy is Warfarin and Anticoagulant Meds if any: NOT Prescribed or Continued at Discharge
[2017-03-28] MEDS ORDERED: AUGMENTIN 875-1 EACH PO (09:34)
[2017-03-28] MEDS ORDERED: PERCOCET 10-321 EACH PO (09:34)
--- NOTE | 2017-03-28 11:35 | PN- Wound Care ---
Subjective Subjective: Patient continues to complain of pain lower extremity edema is markedly improved with bedrest erythema has receded Objective Vital Signs and I&Os Vital Signs Result Date Time Pulse Ox 97 03/28 622 B/P 118/70 03/28 622 O2 Delivery Room Air 03/28 622 Temp 98.6 03/28 622 Pulse 102 03/28 622 Resp 20 03/28 622 O2 Flow Rate Room Air 03/26 1253 Intake & Output 03/28 0000 03/27 1600 03/27 0800 Intake Total 850 450 Output Total Balance 850 450 Intake, IV 130 250 Intake, Oral 720 200 Lower extremity erythema is decreasing edema is markedly that her with bedrest and elevation. Wounds are now dry with thin scabs present. Impression/Plan Impression/Plan Impression/Plan: 52-year-old woman with multiple medical problems suspected sleep apnea and morbid obesity chronic venous insufficiency admitted with acute cellulitis of the right lower extremity secondary to recurrent venous stasis ulceration. Complete course of antibiotics orally. Today compression dressings to be applied with follow-up in the wound care center on Friday. Patient was instructed on the need for aggressive elevation while home
[2017-03-28 13:52] VITALS: BP 110/70
--- NOTE | 2017-03-28 13:54 | Event Note ---
Event Note [facility] spoke with Edi ALVARADO, informed that the patient is being discharged today with 12 tablets of Percocet every 4 when necessary.
--- NOTE | 2017-03-28 14:30 | Discharge Summary ---
Visit Information Visit Dates Admission Date: 03/26/17 Discharge Date: 03/28/17 Hospital Course Course Attending Physician: Precious CERRATO,Madalyn Harrison Primary Care Physician: Macrina CERRATO,Macrina Hospital Course: This is a 52-year-old female with past medical history significant for diabetes, opiate use disorder, on methadone, chronic venous stasis follows with wound clinic, anxiety, GERD, chronic back pain who was sent to the hospital from wound care clinic for further evaluation of lower extremities cellulitis. Physical exam on admission: Temperature 98.4, pulse rate 112, respiratory rate 18, blood pressure 117/74, oxygen saturation 96% on room air. General Appearance Alert, Oriented X3, Cooperative, No Acute Distress Skin bilateral LE with erythema and warmth in watkins. Right worse than left. there are open wounds with serosanguinous drainage on right side. HEENT Atraumatic, PERRLA, EOMI Neck Supple Cardiovascular Regular Rate, Normal S1, Normal S2, No Murmurs Lungs Normal Air Movement Extremities see skin Pertinent labs and diagnostic data on admission: WBC 6.1, RBC 4.13, hemoglobin 10.5, hematocrit 32.8, MCV 79.2, MCH 25.5, platelets 292. Sodium 141, potassium 4.3, chloride 92, anion gap 15, BUN 18, creatinine 1.1, GFR 53, glucose 172, AST 53, ALT 46, alkaline phosphatase 123 The following problems were addressed during the course of her hospital stay: #Lower extremities cellulitis: The patient was started on IV Unasyn upon admission which was later on changed to PO Augmentin. Blood cultures were negative. She was evaluated by wound care who recommended Xeroform to soften slough daily cleansing and multilayer compression dressings prior to discharge. During her hospital stay, she reported severe pain in her lower extremities, she was initially received IV Dilaudid and was started on IV morphine PRN and PO percocet PRN. IV morphine was discontinued later on. Upon her discharge, the patient was adamant that she was in severe pain most of the time, she stated that she would not able to be discharged without any pain medications as she knew she would not be able to tolerate her pain. The patient was discharged home to complete a total of seven-day course of AB therapy. She was also prescribed 12 tablets of Percocet Q4 PRN. [facility] was notified about her discharge with percocet. #Chronic venous stasis ulcers: Was evalucated by wound care. Please see above. The patient was instructed to follow-up with wound care clinic as an outpatient. #Tachycardia: During the course of her hospital stay, the patient noted to have episodes of tachycardia to 100s. She denied any chest pain or palpitaion, however stated that she is in pain. EKG obtained which did not reveal any significant abnormalities or ST-T wave. TSH, free T4 within normal limits, U tox was negative for cocaine. Her tachycardia was attributed to her pain, she will need further monitoring and evaluation as an outpatient. She may benefit from beta lisset therapy if tachycardia continues. #Opiate use disorder: The patient is on methadone 80 mg daily which was confirmed with [employer]. This was continued during her hospital stay. She required multiple doses of IV opioids for pain management of her lower extremities. Please see above. 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 We held oral hypoglycemic agents. She received Diabetic/heart healthy diet. 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 #DVT PPX: Received SC Lovenox #CODE STATUS: Full code Allergies: Coded Allergies: Sulfa (Sulfonamide Antibiotics) (Intermediate, RASH, BUT OK WITH BACTRIM ) cephalexin (From Keflex) (Intermediate, RASH/ANKLE SWELLING 06/11/16) influenza virus vaccine tv 2013-(18-49 yrs),rcmb (From Flublok) (Intermediate, RASH/SWELLING 06/11/16) pneumococcal vaccine (From Pneumovax 23) (Intermediate, RASH/SWELLING 06/11/16) acetaminophen (From Tylenol) (Severe, INCREASES LIVER ENZYMES 06/11/16) erythromycin base (Intermediate, GI UPSET 06/11/16) ibuprofen (Intermediate, GI UPSET 06/11/16) ketorolac (From Toradol) (Intermediate, GI UPSET 06/11/16) naproxen (Intermediate, GI UPSET 06/11/16) Disposition Summary Disposition Principal Diagnosis: Lower extremities cellulitis Additional Diagnosis: Tachycardia Discharge Disposition: home or self care Discharge Instructions General Discharge Information Code Status: Full Code Patient's Diet: Diabetic/Heart Healthy Patient's Activity: As tolerated Follow-Up Instructions/Appts: -Please follow with your PCP within a week of discharge. -Please keep your legs elevated while at rest. -Please take your medications as instructed. -Please follow with wound care clinic as an outpatient. -Please return to the hospital if your symptoms not improve worsen. Medications at Discharge Discharge Medications: Continue taking these medications: Hydroxyzine Pamoate (Vistaril) 50 MG CAPSULE 2 Capsule ORAL THREE TIMES DAILY Comments: atarax given in hospital, last dose given 03/28/17 9 am Pantoprazole Sodium (Pantoprazole Sodium) 40 MG TABLET.DR 1 Tablet ORAL DAILY BEFORE BREAKFAST Comments: Last Taken: 03/28/17 Time: 6 am Dicyclomine Hydrochloride (Bentyl) 10 MG CAPSULE 20 Milligram ORAL THREE TIMES DAILY Comments: Last Taken: 03/28/17 Time: 9 am Furosemide (Lasix) 40 MG TABLET 1 Tablet ORAL TWICE DAILY Comments: Last Taken: 03/28/17 Time: 9 am Methadone HCl (Methadone HCl) 10 MG/ML ORAL.CONC 80 Milligram ORAL DAILY Comments: Last Taken: 03/28/17 Time: 9 am Quetiapine Fumarate (Quetiapine Fumarate) 100 MG TABLET 1 Tablet ORAL Every Morning Qty = 30 Comments: Last Taken: 03/28/17 Time: 9 am Potassium Chloride (Potassium Chloride) 10 MEQ TABLET.ER 1 Tablet ORAL TWICE DAILY Comments: not given in hospital Trazodone HCl (Trazodone HCl) 150 MG TABLET 2 Tablet ORAL TAKE AT BEDTIME Comments: held in hospital Insulin Glargine,Hum.rec.anlog (Lantus Solostar) 100 UNIT/ML (3 ML) INSULN.PEN 10 Unit Inject into fatty tissue Every Morning Comments: not given in hospital Insulin Glargine,Hum.rec.anlog (Lantus Solostar) 100 UNIT/ML (3 ML) INSULN.PEN 15 Units Inject into fatty tissue Every night Comments: not given in hospital; Metformin HCl (Glucophage) 1,000 MG TABLET 1 Tablet ORAL TWICE DAILY Comments: insulin sliding scale in hospital Nystatin (Nystatin) 100,000 UNIT/GRAM POWDER 1 Application On the skin THREE TIMES DAILY Qty = 1 Comments: not given in hospital Quetiapine Fumarate (Seroquel) 100 MG TABLET 5 Tablet ORAL Every night Comments: Last Taken: 03/27/17 Time: 9 pm Duloxetine HCl (Cymbalta) 60 MG CAPSULE.DR 2 Capsule ORAL Every night as needed Comments: Last Taken: 03/28/17 Time: 9 am Start taking the following new medications: Amoxicillin/Potassium Clav (Augmentin 875-125 Tablet) 875 MG-125 MG TABLET 1 Tablet ORAL TWICE DAILY Qty = 11 No Refills Comments: IV UNASYN IN HOSPITAL Oxycodone HCl/Acetaminophen (Percocet 10-325 MG Tablet) 10 MG-325 MG TABLET 1 Tablet ORAL 4 TIMES A DAY as needed for Severe pain Qty = 12 No Refills Comments: Last Taken: 03/28/17 Time: 9 am Copies To: Macrina CERRATO,Macrina
[2017-03-31] MEDS ORDERED: ZOFRAN ODT4 M1 SL (17:38)
[2017-03-31] MEDS ORDERED: VANCOCIN HCL125 MG PO (17:38)
== END 2017-03-28 17:51 | DRG 383 ==
LOC: ERH 12:10 → 2NA 16:06 → ERHI 16:06 → ENRESERV 17:33 → ENTRNSPT 18:53 → CMPTRNSPT 19:19 → 2NA 19:24 → ENPENDDIS 03-28 11:53 → 2NA 03-28 17:51
PROVIDERS: Emergency Medicine
DX: L03.115 Cellulitis of right lower limb (principal); F11.20 Opioid dependence, uncomplicated; K21.9 Gastro-esophageal reflux disease without esophagitis; F41.9 Anxiety disorder, unspecified; F32.9 Major depressive disorder, single episode, unspecified; M54.9 Dorsalgia, unspecified; E11.9 Type 2 diabetes mellitus without complications; Z79.84 Long term (current) use of oral hypoglycemic drugs; Z68.42 Body mass index [BMI] 45.0-49.9, adult; L97.819 Non-pressure chronic ulcer of other part of right lower leg with unspecified severity; L03.116 Cellulitis of left lower limb; I87.2 Venous insufficiency (chronic) (peripheral); G89.29 Other chronic pain; R00.0 Tachycardia, unspecified; E66.01 Morbid (severe) obesity due to excess calories
CPT/HCPCS: 2NASP; 80307; 87040; 93005; 93010; G0463; J1650; J2405

== ENCOUNTER 2017-08-27 09:23 | Inpatient (IN) | payer OTHER ==
[~2017-08-27] VITALS: Ht 149.9 cm; Wt 98.0 kg
[~2017-08-27 09:23] MED LIST changes: +AUGMENTIN 875-1 EACH PO; -BENTYL10 M1 PO; +DICYCLOMINE HCL20 M1 PO; +PERCOCET 10-321 EACH PO; +SEROQUEL100 M1 PO; +VANCOCIN HCL125 MG PO; +ZOFRAN ODT4 M1 PO; +ZOFRAN ODT4 M1 SL
--- NOTE | 2017-08-27 11:17 | ED GENERAL ADULT ---
History of Present Illness General Chief Complaint: Lower Extremity Problems Stated Complaint: SENT BY DR. JOHN FOR LEG WOUND Source: patient Exam Limitations: no limitations Vital Signs & Intake/Output Vital Signs & Intake/Output Vital Signs Date Time Temp Pulse Resp B/P B/P Pulse O2 O2 Flow FiO2 Mean Ox Delivery Rate 08/27 1444 98.8 96 18 124/59 96 Room Air 08/27 1155 98.6 104 18 129/60 96 Room Air 08/27 0929 95.7 106 18 128/87 98 Room Air Allergies Coded Allergies: Sulfa (Sulfonamide Antibiotics) (Intermediate, RASH, BUT OK WITH BACTRIM ) cephalexin (From Keflex) (Intermediate, RASH/ANKLE SWELLING 06/11/16) influenza virus vaccine tv 2013-(18-49 yrs),rcmb (From Flublok) (Intermediate, RASH/SWELLING 06/11/16) pneumococcal vaccine (From Pneumovax 23) (Intermediate, RASH/SWELLING 06/11/16) acetaminophen (From Tylenol) (Severe, INCREASES LIVER ENZYMES 06/11/16) erythromycin base (Intermediate, GI UPSET 06/11/16) ibuprofen (Intermediate, GI UPSET 06/11/16) ketorolac (From Toradol) (Intermediate, GI UPSET 06/11/16) naproxen (Intermediate, GI UPSET 06/11/16) Reconcile Medications Dicyclomine HCl 20 MG TABLET 1 TAB PO TID GI (Reported) Duloxetine HCl (Cymbalta) 60 MG CAPSULE.DR 2 CAP PO QPM Depression (Reported) Furosemide (Lasix) 40 MG TABLET 1 TAB PO BID DIURETIC (Reported) Hydroxyzine Pamoate (Vistaril) 50 MG CAPSULE 2 CAP PO TID ANXIETY (Reported) Insulin Glargine,Hum.rec.anlog (Lantus Solostar) 100 UNIT/ML (3 ML) INSULN.PEN 10 UNIT SC QAM DM (Reported) Insulin Glargine,Hum.rec.anlog (Lantus Solostar) 100 UNIT/ML (3 ML) INSULN.PEN 15 UNITS SC QPM DM (Reported) Metformin HCl (Glucophage) 1,000 MG TABLET 1 TAB PO BID DM (Reported) Methadone HCl 10 MG/ML ORAL.CONC 85 MG PO DAILY CHRONIC PAIN (Reported) Pantoprazole Sodium 40 MG TABLET.DR 1 TAB PO DAILY AC GI (Reported) Potassium Chloride 10 MEQ TABLET.ER 1 TAB PO BID SUPPLEMENT (Reported) Quetiapine Fumarate 100 MG TABLET 1 TAB PO QAM MENTAL HEALTH (Reported) Quetiapine Fumarate (Seroquel) 100 MG TABLET 5 TAB PO QPM Depression ( Reported) Trazodone HCl 150 MG TABLET 2 TAB PO QHS SLEEP/MENTAL HEALTH (Reported) Triage Note: 52 Y/OL [facility] OFFICE FOR EVAL OF BILATERAL LEG WOUNDS, "THEY OPENED UP". REPORTS WOUND CLINIC "JUST PUT DRESSINGS ON AND SENT ME DOWN HERE". ALSO C/O N/V/D SINCE OVERNIGHT. AFEBRILE. Triage Nurses Notes Reviewed? yes Onset: Gradual Duration: day(s): Timing: constant HPI: 52 y/o female with h/o DM, pancreatitis, colitis, diverticulitis, opiate abuse presenting with recurrent bilateral leg wounds with R>L worse over the past 4 days. Not currently on abx, has been getting periodic dressing changes in the wound clinic. Sent in by Dr. Drew for eval. Endorses fever to 100.5F this morning, along with NVD and abd pain since last night. +Sick contacts with similar symptoms. No travel. Reports intermittently elevated glucose levels at home over 200. Takes metformin and lantus, but not always compliant. (Blanca Coon) Past History Travel History Traveled to [place] past 21 day No Medical History Any Pertinent Medical History? see below for history Neurological: NONE EENT: NONE Cardiovascular: NONE Respiratory: pneumonia Gastrointestinal: colitis, diverticulitis, pancreatitis, ACID REFLUX C DIFF LA grade B esophagitis, erosive gastropathy Hepatic: NONE Renal: NONE Musculoskeletal: NONE Psychiatric: NARCOTIC ABUSE CHRONIC PAIN MANAGEMENT Endocrine: diabetes Blood Disorders: NONE Cancer(s): NONE [employer] AUTOM[employer]IC/Reproductive: endometriosis History of MRSA: No History of VRE: No History of CDIFF: No Surgical History Surgical History: appendectomy, cholecystectomy, hernia repair-umbilical, hysterectomy, OVARIAN CYST REMOVAL Psychosocial History Who do you live with Patient/Self What is your primary language Amharic Tobacco Use: Never used Family History Hx Contributory? No (Blanca Coon) Review of Systems Review of Systems Constitutional: Reports: see HPI. EENTM: Reports: no symptoms. Respiratory: Reports: no symptoms. Cardiovascular: Reports: no symptoms. GI: Reports: see HPI. Genitourinary: Reports: no symptoms. Musculoskeletal: Reports: no symptoms. Skin: Reports: see HPI. Neurological/Psychological: Reports: no symptoms. Hematologic/Endocrine: Reports: no symptoms. Immunologic/Allergic: Reports: no symptoms. (Blanca Coon) Physical Exam Physical Exam General Appearance: well developed/nourished, no apparent distress, alert, awake , comfortable Head: atraumatic, normal appearance Eyes: Bilateral: normal appearance. Neck: normal inspection Respiratory: normal breath sounds, lungs clear Cardiovascular: regular rate/rhythm Gastrointestinal: soft, guarding, tenderness (diffuse), no rebound Back: normal inspection Extremities: Multiple open wounds with foul smell and scant yellow drainage to anterior distal LE's with R>L. +Surrounding erythema. Neurologic/Psych: awake, alert, oriented x 3, normal mood/affect Skin: normal color, warm/dry Core Measures ACS in differential dx? No CVA/TIA Diagnosis: No Sepsis Present: No Sepsis Focused Exam Completed? No (Blanca Coon) Progress Differential Diagnoses I considered the following diagnoses in my evaluation of the patient: [Ulcers vs wound infection vs cellulitis vs abscess vs osteo vs nec fasc] Plan of Care: Orders Procedure Date/time Status Heart Healthy Diet 08/28 B Active Regular Diet 08/27 D Complete ED Holding Orders 08/27 1632 Active Admit to inpatient 08/27 1632 Active Vital Signs 08/27 1632 Active Code Status 08/27 1632 Active Patient Data 08/27 1617 Active Add-on Test (ER Only) 08/27 1613 Active LACTIC ACID 08/27 1505 Active LACTIC ACID 08/27 1417 Complete WESTERGREN SED RATE 08/27 1225 Active BASIC METABOLIC PANEL 08/27 1225 Complete LACTIC ACID 08/27 1205 Active URINALYSIS 08/27 1117 Complete LIPASE 08/27 1117 Complete LACTIC ACID 08/27 1117 Complete HEPATIC FUNCTION PANEL 08/27 1117 Complete BLOOD CULTURE 08/27 1115 Active CBC WITHOUT DIFFERENTIAL 08/27 1115 Active Current Medications Sig/Melody Start time Last Medication Dose Stop Time Status Admin Vancomycin HCl 1,000 MG ONCE ONE 08/27 1130 CAN Sodium Chloride 250 ML 08/27 1229 (Normal Saline 0.9%) Vancomycin HCl 1,500 MG ONCE 08/27 0000 CAN Sodium Chloride 250 ML 08/27 2359 (Normal Saline 0.9%) Laboratory Tests 08/27/17 1417: Lactic Acid 3.1 H 08/27/17 1225: Anion Gap 12, Estimated GFR 53 L, BUN/Creatinine Ratio 14.5, Glucose 237 H, Lactic Acid 2.9 H, Calcium 7.8 L, Total Bilirubin 0.3, Direct Bilirubin 0.3, AST 74 H, ALT 54 H, Alkaline Phosphatase 146 H, Total Protein 7.4, Albumin 3.5, Lipase 115, CBC w Diff NO MAN DIFF REQ, RBC 4.10 L, MCV 78.6 L, MCH 26.1 L, MCHC 33.2, RDW 14.3, MPV 7.3 L, Gran % 71.5, Lymphocytes % 23.3, Monocytes % 4.0, Eosinophils % 1.0, Basophils % 0.2, Absolute Granulocytes 4.5, Absolute Lymphocytes 1.5, Absolute Monocytes 0.3, Absolute Eosinophils 0.1, Absolute Basophils 0, ESR Westergren Pending 08/27/17 1120: Urine Color YEL, Urine Clarity CLEAR, Urine pH 6.0, Ur Specific [place] 1.015, Urine Protein NEG, Urine Ketones NEG, Urine Nitrite NEG, Urine Bilirubin NEG, Urine Urobilinogen 0.2, Ur Leukocyte Esterase NEG, Ur Microscopic EXAM NOT REQUIRED, Urine Hemoglobin NEG, Urine Glucose 100 H 08/27/17 1115: Sodium Cancelled, Potassium Cancelled, Chloride Cancelled, Carbon Dioxide Cancelled, Anion Gap Cancelled, BUN Cancelled, Creatinine Cancelled, BUN/ Creatinine Ratio Cancelled, Glucose Cancelled, Calcium Cancelled Microbiology 08/27 1439 BLOOD: Blood Culture - RECD 08/27 1404 BLOOD: Blood Culture - RECD Covered with vanc for leg wounds. X-ray IMPRESSION: Subcutaneous edema and soft tissue swelling in both lower legs. No radiographic findings of osteomyelitis. Mild osteoarthritis in both knees. Labs remarkable for mild elevated lactate to 2.9. Will repeat after NS bolus. CT abdomen pelvis Sigmoid diverticulosis without evidence of diverticulitis. No acute abdominal or pelvic inflammatory or infectious processes. Fevers, NVD, and abd pain likely 2/2 gastroenteritis. Low concern for acute adomen or sepsis 2/2 to wound infections. Discussed with hospitalist, MOD, and EDMD. Will admit to gen med for wound infection. Initial ED EKG: none (Blanca Coon) Departure Departure Disposition: STILL A PATIENT Condition: Stable Clinical Impression Primary Impression: Wound infection Secondary Impressions: Cellulitis Referrals: Macrina Schrader MD (PCP/Family) Departure Forms: Customer Survey General Discharge Information Admission Note Spoke With: Jadon Mcnally MD Documentation of Exam: Documentation of any treatments & extenuating circumstances including Concerns Regarding Discharge (functional status, medication knowledge or non-compliance, living conditions, etc.) that warrant an admission rather than observation: [IV abx, IV fluids, wound care, insulin, bgl monitoring, hemodynamic monitoring ] (Blanca Coon) PA/JAVA TECH LEAD Co-Sign Statement Statement: ED Attending supervision documentation- [X] I saw and evaluated the patient. I have also reviewed all the pertinent lab results and diagnostic results. I agree with the findings and the plan of care as documented in the PA's/JAVA TECH LEAD's documentation. [X] I have reviewed the ED Record and agree with the PA's/JAVA TECH LEAD's documentation. [] Additions or exceptions (if any) to the PAs/JAVA TECH LEAD's note and plan are summarized below: [Patient sent from the wound center for admission for IV fluids, IV antibiotics, wound consult, endocrine consult, insulin] (Rohith CERRATO,Adriano Sanchez) Critical Care Note Critical Care Note Critical Care Time: 30-74 min (Blanca Coon)
[2017-08-27 12:40] LABS: ABSOLUTE BASOPHIL COUNT 0 /CUMM (0.0-0.2); ABSOLUTE EOSINOPHIL COUNT 0.1 /CUMM (0.0-0.7); ABSOLUTE GRANULOCYTE CT 4.5 /CUMM (1.4-6.5); ABSOLUTE LYMPH COUNT 1.5 /CUMM (1.2-3.4); ABSOLUTE MONOCYTE COUNT 0.3 /CUMM (0.10-0.60); BASOPHIL % 0.2 % (0.0-2.0); GRANULOCYTE % 71.5 % (42.2-75.2); HEMATOCRIT 32.2 % (37-47); MEAN CORPUSCULAR HGB 26.1 PG (27.0-31.0); MEAN CORPUSCULAR HGB CONC 33.2 G/DL (33.0-37.0); MEAN CORPUSCULAR VOLUME 78.6 FL (81.0-99.0); MEAN PLATELET VOLUME 7.3 FL (7.4-10.4); PLATELET COUNT 278 /CUMM (130-400); RBC DISTRIBUTION WIDTH 14.3 % (11.5-14.5); WHITE BLOOD CELL COUNT 6.3 /CUMM (4.8-10.8)
--- NOTE | 2017-08-27 15:03 | RADIOLOGY REPORT ---
EXAMINATION: XR TIBIA AND FIBULA, RIGHT XR TIBIA AND FIBULA, LEFT CLINICAL INFORMATION: Evaluate for osteomyelitis. Leg wounds. COMPARISON: None TECHNIQUE: AP and lateral views of each tibia and fibula. FINDINGS: RIGHT TIBIA AND FIBULA: Soft tissues are diffusely swollen and edematous. Bones are osteopenic. No acute fracture or malalignment. Mild osteoarthritis is present in the right knee. Talocrural joint is unremarkable. No areas of acute osteolysis are identified to suggest osteomyelitis at the tibia and fibula. Moderate sized enthesopathic spurs are present at the Achilles tendon insertion and plantar fascial origin on the calcaneus. LEFT TIBIA AND FIBULA: Diffuse soft tissue swelling and edema. Bones are osteopenic. No acute fracture or malalignment. Mild osteoarthritis is present at the left knee. Talocrural joint is appropriately aligned with an old healed lateral malleolar fracture. No focal osteolysis to indicate acute osteomyelitis. Moderate sized enthesopathic spurs are present at the Achilles tendon insertion and plantar fascial origin on the calcaneus. IMPRESSION: Subcutaneous edema and soft tissue swelling in both lower legs. No radiographic findings of osteomyelitis. Mild osteoarthritis in both knees.
--- NOTE | 2017-08-27 16:00 | CT SCAN REPORT ---
EXAMINATION: CT ABDOMEN AND PELVIS WITH CONTRAST CLINICAL INFORMATION: Abdominal pain. COMPARISON: 05/16/2017. TECHNIQUE: Contiguous axial thin section helical images of the abdomen and pelvis were performed following the administration of 95 mL of intravenous Optiray 320. The data set was reformatted in the coronal and sagittal planes and reviewed on an independent workstation. DLP: 1310 mGy-cm. FINDINGS: The visualized lung bases are clear. The visualized portions of the heart are unremarkable. The liver is of normal size and attenuation without focal lesions. There is stable mild intrahepatic biliary ductal dilation. The common duct is prominent, though stable measuring approximately 12 mm. The patient is status post cholecystectomy. Surgical clips are identified. The spleen, pancreas, adrenal glands are unremarkable. Both kidneys are of normal size and attenuation without hydronephrosis or nephrolithiasis. Following the administration of IV contrast, prompt symmetric nephrograms are displayed. There is no abdominal free fluid. There is neither mesenteric nor retroperitoneal lymphadenopathy. Intact anterior abdominal wall mesh is demonstrable. There is sigmoid diverticulosis without evidence of diverticulitis; otherwise, unremarkable unopacified loops of small and large bowel are identified. There is no pelvic free fluid. The urinary bladder is unremarkable. There is neither pelvic nor inguinal lymphadenopathy. Bone windows: Neither sclerotic nor lytic bone lesions are identified. IMPRESSION: Sigmoid diverticulosis without evidence of diverticulitis. No acute abdominal or pelvic inflammatory or infectious processes. Stable postsurgical changes as stated above.
--- NOTE | 2017-08-27 16:50 | History & Physical ---
Tri CERRATO,[facility] 08/27/17 0453: General Information and HPI MD Statement: I have seen and personally examined LES MOREL and documented this H&P. The patient is a 52 year old F who presented with a patient stated chief complaint of [abdominal pain, nausea, vomiting]. Source of Information: patient Exam Limitations: no limitations History of Present Illness: 52-year-old female with past medical history significant for diabetes, opiate use disorder, on methadone, chronic venous stasis follows with Dr Albarran, anxiety, depression, GERD and chronic back pain who presented to the ED with complains of abdominal pain and lower extremity ulcers. According to the patient yesterday she started experiencing severe epigastric discomfort, radiating to her right upper abdomen, 10/10 in severity, aggravated with movement, improved with staying immobile and accompanied with nausea, vomiting and diarrhea. She states having one episode of vomitus this morning which had red streaks. She has had 4 episodes of loose bowel movements (non bloody) since yesterday but none since coming to the ED. She had a fever of 100.5 earlier today. Her other complain is regarding her legs. On Friday, she undid her bandages and noticed that she was having yellowish pus discharge from her ulcers. She cleaned the area but noticed repeated discharge. On Friday she went to the wound clinic and her dressings were changed. She was asked to follow up on Friday (today). Since she was feeling unwell, she decided to come directly to the ED. Allergies/Medications Allergies: Coded Allergies: Sulfa (Sulfonamide Antibiotics) (Intermediate, RASH, BUT OK WITH BACTRIM ) cephalexin (From Keflex) (Intermediate, RASH/ANKLE SWELLING 06/11/16) influenza virus vaccine tv 2013-(18-49 yrs),rcmb (From Flublok) (Intermediate, RASH/SWELLING 06/11/16) pneumococcal vaccine (From Pneumovax 23) (Intermediate, RASH/SWELLING 06/11/16) acetaminophen (From Tylenol) (Severe, INCREASES LIVER ENZYMES 06/11/16) erythromycin base (Intermediate, GI UPSET 06/11/16) ibuprofen (Intermediate, GI UPSET 06/11/16) ketorolac (From Toradol) (Intermediate, GI UPSET 06/11/16) naproxen (Intermediate, GI UPSET 06/11/16) Home Med list Dicyclomine HCl 20 MG TABLET 1 TAB PO TID GI (Reported) Duloxetine HCl (Cymbalta) 60 MG CAPSULE.DR 2 CAP PO QPM Depression (Reported) Furosemide (Lasix) 40 MG TABLET 1 TAB PO BID DIURETIC (Reported) Hydroxyzine Pamoate (Vistaril) 50 MG CAPSULE 2 CAP PO TID ANXIETY (Reported) Insulin Glargine,Hum.rec.anlog (Lantus Solostar) 100 UNIT/ML (3 ML) INSULN.PEN 10 UNIT SC QAM DM (Reported) Insulin Glargine,Hum.rec.anlog (Lantus Solostar) 100 UNIT/ML (3 ML) INSULN.PEN 15 UNITS SC QPM DM (Reported) Metformin HCl (Glucophage) 1,000 MG TABLET 1 TAB PO BID DM (Reported) Methadone HCl 10 MG/ML ORAL.CONC 85 MG PO DAILY CHRONIC PAIN (Reported) Pantoprazole Sodium 40 MG TABLET.DR 1 TAB PO DAILY AC GI (Reported) Potassium Chloride 10 MEQ TABLET.ER 1 TAB PO BID SUPPLEMENT (Reported) Quetiapine Fumarate 100 MG TABLET 1 TAB PO QAM MENTAL HEALTH (Reported) Quetiapine Fumarate (Seroquel) 100 MG TABLET 5 TAB PO QPM Depression ( Reported) Trazodone HCl 150 MG TABLET 2 TAB PO QHS SLEEP/MENTAL HEALTH (Reported) Past History Travel History Traveled to [place] past 21 day No Medical History Neurological: NONE EENT: NONE Cardiovascular: NONE Respiratory: pneumonia Gastrointestinal: colitis, diverticulitis, pancreatitis, ACID REFLUX C DIFF LA grade B esophagitis, erosive gastropathy Hepatic: NONE Renal: NONE Musculoskeletal: NONE Psychiatric: NARCOTIC ABUSE CHRONIC PAIN MANAGEMENT Endocrine: diabetes Blood Disorders: NONE Cancer(s): NONE HOME ATTENDANT/Reproductive: endometriosis History of MRSA: No History of VRE: No History of CDIFF: No Surgical History Surgical History: appendectomy, cholecystectomy, hernia repair-umbilical, hysterectomy, OVARIAN CYST REMOVAL Review of Systems Review of Systems Constitutional: Reports: fever. Denies: chills. EENTM: Reports: no symptoms. Cardiovascular: Denies: chest pain. Respiratory: Reports: cough, short of breath. GI: Reports: abdominal pain, diarrhea, nausea, vomiting. Genitourinary: Reports: no symptoms. Musculoskeletal: Reports: joint pain. Skin: Reports: no symptoms. Neurological/Psychological: Reports: no symptoms. Exam & Diagnostic Data Last 24 Hrs of Vital Signs/I&O Vital Signs Date Time Temp Pulse Resp B/P B/P Pulse O2 O2 Flow FiO2 Mean Ox Delivery Rate 08/27 1722 97.5 101 18 101/59 95 08/27 1444 98.8 96 18 124/59 96 Room Air 08/27 1155 98.6 104 18 129/60 96 Room Air 08/27 0929 95.7 106 18 128/87 98 Room Air Intake & Output 08/27 1600 08/27 0800 08/27 0000 Intake Total 1250 Output Total Balance 1250 Intake, IV 1250 Patient 217 lb Weight Physical Exam General Appearance Alert, Oriented X3, Cooperative, Mild Distress Skin No Rashes, No Breakdown Skin Temp/Moisture Exam: Warm/Dry Sepsis Skin Exam (color): Normal for Ethnicity HEENT Atraumatic Cardiovascular Normal S1, Normal S2, No Murmurs Lungs Clear to Auscultation, Normal Air Movement Abdomen Soft, epigastric and RUQ tenderness Neurological Normal Speech Extremities b/l lower extremity erythema with small wounds on anterior tibial region Last 24 Hrs of Labs/Toby: Laboratory Tests 08/27/17 1505: Lactic Acid Cancelled 08/27/17 1417: Lactic Acid 3.1 H 08/27/17 1225: Anion Gap 12, Estimated GFR 53 L, BUN/Creatinine Ratio 14.5, Glucose 237 H, Lactic Acid 2.9 H, Calcium 7.8 L, Total Bilirubin 0.3, Direct Bilirubin 0.3, AST 74 H, ALT 54 H, Alkaline Phosphatase 146 H, Total Protein 7.4, Albumin 3.5, Lipase 115, CBC w Diff NO MAN DIFF REQ, RBC 4.10 L, MCV 78.6 L, MCH 26.1 L, MCHC 33.2, RDW 14.3, MPV 7.3 L, Gran % 71.5, Lymphocytes % 23.3, Monocytes % 4.0, Eosinophils % 1.0, Basophils % 0.2, Absolute Granulocytes 4.5, Absolute Lymphocytes 1.5, Absolute Monocytes 0.3, Absolute Eosinophils 0.1, Absolute Basophils 0, ESR Westergren 62 H 08/27/17 1120: Urine Color YEL, Urine Clarity CLEAR, Urine pH 6.0, Ur Specific [place] 1.015, Urine Protein NEG, Urine Ketones NEG, Urine Nitrite NEG, Urine Bilirubin NEG, Urine Urobilinogen 0.2, Ur Leukocyte Esterase NEG, Ur Microscopic EXAM NOT REQUIRED, Urine Hemoglobin NEG, Urine Glucose 100 H 08/27/17 1115: Sodium Cancelled, Potassium Cancelled, Chloride Cancelled, Carbon Dioxide Cancelled, Anion Gap Cancelled, BUN Cancelled, Creatinine Cancelled, BUN/ Creatinine Ratio Cancelled, Glucose Cancelled, Calcium Cancelled Microbiology 08/27 1727 UPPER RESP: Surveillance Culture - ORD 08/27 1727 STOOL: Clostridium difficile Toxin A & B - ORD 08/27 1439 BLOOD: Blood Culture - RECD 08/27 1404 BLOOD: Blood Culture - RECD Assessment/Plan Assessment: 52-year-old female with past medical history significant for diabetes, opiate use disorder, on methadone, chronic venous stasis follows with Dr Albarran, anxiety, depression, GERD and chronic back pain who presented to the ED with complains of abdominal pain and lower extremity ulcers. Assessment: 1. Bilateral lower extremity ulcers with cellulitis 2. DIPESH 3. Elevated Lactic Acid 4. History of diabetes 5. History of opiate use on methadone 6. Abdominal Pain Plan: * Admit patient to telemetry. * IV Unasyn 3g q6 to cover for underlying cellulits * ID consult in am * IVF with NS @75ml/hr * Trend Lactic Acid * Trend Renal function * Follow up blood cultures * MRSA screening * C.diff for diarrhea * Her abdominal pain is of unclear etiology at the moment. Her imaging has been negative so far. Supportive care and continue her home medication bentyl as needed. * wound consult in am * Confirm methadone dose in am from [facility] * Hold oral hypoglycemics * Insulin SS with Accucheks * Levemir 15 units pm and 10 units am (home dose) * Diet: Diabetic * DVT Prophylaxis: SC Heparin * Code: Full Code As Ranked By This Provider Problem List: 1. Wound infection Core Measures/Misc (12/01) Acute Coronary Syndrome ACS Diagnosis: No Congestive Heart Failure Congestive Heart Failure Diagnosis No Cerebrovascular Accident CVA/TIA Diagnosis: No VTE (View Protocol) VTE Risk Factors Age>40 No Mechanical VTE Prophylaxis d/t N/A MechProphylax Ordered No VTE Pharm Prophylaxis d/t NA PharmProphylax ordered Sepsis (View protocol) Sepsis Present: No If YES complete Sepsis Event Note If YES complete Sepsis Event Note Consuelo CERRATOYonathan 08/27/17 2019: Core Measures/Misc (12/01) Sepsis (View protocol) If YES complete Sepsis Event Note If YES complete Sepsis Event Note Resident Review Statement Resident Statement: examined this patient, discussed with internal sales, agreed with internal sales, reviewed EMR data (avail), discussed with nursing Other Findings: History of Present Illness 52 year old woman with past medical history insulin-dependent diabetes mellitus, chronic back pain / opiate abuse on methadone, chronic venous statis ulcers, anxiety, depression, GERD, morbid obesity, medication noncompliance, and obstructive sleep apnea noncompliant with CPAP sent in by the wound care center for wound evaluation. Patient reports experiencing nausea, vomiting, and diarrhea since last evening. Due to this she did not take any medications this morning. She reports 10/10 epigastric pain radiating to her right upper quadrant worsened by movment and improved with rest. She reportedly had a fever of "100.5" this morning. She also reports that since Friday there has been yellow discharge from her chronic leg wounds that recurred despite cleaning. She was seen in the wound clinic on Friday where they wrapped her legs and followed up today for which she was referred to the [place] ED for concern of infection. Objective Vitals Physical Exam -General: morbidly obese middle aged woman in no acute distress -HEENT: NCAT, PERRL, EOMI, anicteric sclera, moist mucous membranes -Neck: Supple, no JVD, trachea midline -Cardio: Normal S1/S2 w/o m/g/r; RRR -Pulm: CTA bilaterally -Abdomen: Soft, Mild epigastric tenderness without guarding or rigidity, bowel sounds intact -Neuro: Awake and alert, CN II-XII grossly intact -Psych: Agitated and aggressive -Extremities: wounds of various sizes and stages of healing with erythema and induration with scan clear drainage Labs / Imaging / Studies -CBC: WBC 6.3, HGB 10.7, HCT 32.2, PLT 278 -BMP: Na 141, K 4.4, CL 96, CO2 33, BUN 16, Creatinine 1.1, AG 12, Glu 237 -LFT: AST 74, ALT 54, ALP 146 -Misc: Lactic acid 2.9 / 3.1, Lipase 115 -UA: unremarkable -Bilateral tibia / fibula x-ray: * Subcutaneous edema and soft tissue swelling in both lower legs. No radiographic findings of osteomyelitis. * Mild osteoarthritis in both knees. -CT abdomen / pelvis with IV contrast: * Sigmoid diverticulosis without evidence of diverticulitis. No acute abdominal or pelvic inflammatory or infectious processes. * Stable postsurgical changes as stated above. Assessment 52 year old morbidly obese woman with multiple medical problems significant for IDDM, and chronic lower extremity wounds sent in from the wound care center for evaluation of her wounds for infection. Presently she is complaining of severe lower extremity and abdominal pain and is demanding "1 mg of dilaudid". Vital signs are unremarkable. Physical exam is significant for chronic lower extremity wounds with areas of erythema and induration with scant clear drainage. Labs including CBC, BMP, LFTs are significant for normal WBC count, Glucose 237, and AST/ALT 74/54 ALP 146. Lipase is and UA are negative. Lactic acid is elevated to 2.9 / 3.1. Bilateral lower extremity demonstrates subcutaneous edema without signs of osteomyelitis. CT Abdomen / Pelvis with IV contrast is unremarkable. Patient received in the ED two liters of normal saline, zofran, vancomycin, and dilaudid after blood cultures were drawn. Clinically patient appears to have elevated lactic acid likely secondary to lower extremitiy cellulitis. Patient was admitted in March 2017 for similiar reasons for which she was treated with intravenous Unasyn and discharged on oral Augmentin; cultures did not grow any organisms. Patient is to be admitted to the general medicine floor and continued on intravenous fluids and unasyn for her infection and elevated lactic acid respectively. Problem List -Chronic lower extremity wounds, likely cellulitis -Elevated lactic acid -Insulin-dependent diabetes mellitus -Chronic back pain / opiate abuse, on methadone -Chronic venous statis ulcers -Anxiety / Depression GERD, morbid obesity, medication noncompliance, and obstructive sleep apnea noncompliant with CPAP Plan -Admit to general medicine -Elevate legs above level of heart -Accuchecks with Levemir and Novolog SSI -Normal Saline @ 75 mL/hr -Unasyn 3 g IV Q6H -Continue home meds: dicyclomine, cymbalta, lasix, vistaril, protonix, KCl, Seroquel, trazodone -Continue methadone, confirm dose with APT foundation in morning -Start Rozerem 8 mg PO QHS for insomnia -Hold oral hypoglycemics -Consult with wound care -Consult with infectious disease in AM -Follow up cultures & sensitivities -Check C. diff toxin -MRSA swab -Check ESR -Trend lactate acid until normal -Pain control with dilaudid, taper as tolerated -Heart Healthy Diet -DVT PPx with subctunaeous heparin -FULL CODE Jadon Mcnally MD 08/27/17 2222: Core Measures/Misc (12/01) Sepsis (View protocol) If YES complete Sepsis Event Note If YES complete Sepsis Event Note Attending MD Review Statement Attending Statement Attending MD Statement: examined this patient, discuss w/resident/PA/TANKER SERVICEMAN, agreed w/resident/PA/TANKER SERVICEMAN, reviewed EMR data (avail), discussed with nursing, reviewed images, amended to note Attending Assessment/Plan: The patient is a 52 yo female with h/o DM2, opioid dependence (on methadone), chronic back pain, anxiety/depression, GERD and LE ulcers who presented in the ED today after being referred from the wound clinic with worsening LE ulcers with foul smelling discharge along with abdominal pain and nausea/malaise. She also describes nausea and vomiting with some diarrhea. She does have a h/o pancreatitis/diverticulitis and C-difficile. She describes yellow discharge from ulcers. No fever or chills. Has had increased LE pain secondary to ulcers. Physical Exam: VS: T 95.7-97.5, P 106, R 18, BP 128/87, PO 98% RA HEENT: eyes- PERRLA, EOMI melanie- dry mucosa Neck: no JVD/bruits Chest: mild diminished breath sounds, clear Cor: tachy, reg, nl S1 S2 w/o murm Abd: BS+, softly distended, mild supra-umbilical and RUQ tenderness w/o guarding or rebound Ext: indy LE erythema with multiple small pretibial bounds with foul smelling discharge Neuro: alert & oriented x 3, non-focal exam except diminished LE sensory Labs/Tests- as above Impression/Plan: #Infected Ulcerations Lower Extremities- ?venous stasis ulcerations with foul smelling yellow discharge (?anaerobic). Was given IV Vanco in ED. Plan: Admit to medical floor. Marshall-culture and IV antibiotics (will switch Abx to Unasyn as this worked before). Wound care consult for wrapping legs. Consider ID evaluation pending clinical course. #Abdominal Pain- with nausea, vomiting, diarrhea as per patient. Has h/o pancreatitis and diverticulitis, however labs negative and CT negative. Consider C-difficile (has had before) or other GI virus. Gastroparesis also possible. Plan: Observe abdominal pain with hydration, etc. Consider Reglan if continues. #Lactic Acidosis- does not appear to be septic, however does have elevated lactate and tachycardia. Normal temp and WBC. Plan: Will follow with hydration. Follow-up in 3 hours. #DM2- hyperglycemic at present. Given NS and IV insulin in ED. Plan: Continue IV NS and follow-up sugars. Hold Metformin. Continue insulin and sliding scale. #Chronic Pain/Opioid Dependence- is on Methadone and she is asking now for Dilaudid. Plan: Will give Dilaudid 1 mg IV this evening as pain has increased due to abdominal pain and LE pain. Will contact Methadone clinic to verify Methadone dose. #Psychiatric- anxiety/depression?, patient is normally on Quetiapine and Trazodone. Some increased anxiety at present. Plan: Given IV Ativan in ED for anxiety. Consider psych follow-up in hospital.
[2017-08-27 20:05] VITALS: BP 110/62
--- NOTE | 2017-08-27 22:44 | Admission Certification ---
Admission Certification Certification Statement - As attending physician, I certify that at the time of - admission, based on clinical presentation, severity of - symptoms, need for further diagnostic testing and - therapeutic interventions, and risk of adverse outcomes - without in-hospital treatment, in my clinical assessment, - this patient requires an acute hospital stay for a minimum - of two nights or longer. I have also considered psychsocial - factors such as support system, advanced age, financial - issues, cognitive issues, and failed out-patient treatments, - past re-admission history, safety of patient, and lack of - compliance as applicable. Specific rationale supporting this admission is: The patient presents with infected lower extremity wounds with purulent drainage , nausea/vomiting, diarrhea. Hyperglycemia with DM. Lactic acidosis. Needs admission for culture, IV antibiotics (Unasyn), wound care consult- consider ID consult. Check stool for C-diff.
[2017-08-28 06:38] VITALS: BP 112/66
--- NOTE | 2017-08-28 07:19 | PN- Housestaff ---
Tri CERRATO,[facility] 08/28/17 0717: Subjective Follow-up For: Abdominal pain Leg ulcers Subjective: Patient seen and examined. Reports doing okay. She still has significant pain in her abdomen and lower extremities. Review of Systems Constitutional: Reports: no symptoms. Objective Last 24 Hrs of Vital Signs/I&O Vital Signs Date Time Temp Pulse Resp B/P B/P Pulse O2 O2 Flow FiO2 Mean Ox Delivery Rate 08/28 0638 96.6 124 20 112/66 98 Room Air 08/28 0053 97 94 08/27 2357 106 98 08/27 2005 98.5 95 20 110/62 98 Room Air Room Air 08/27 1922 98.8 103 20 110/55 95 Room Air 08/27 1722 97.5 101 18 101/59 95 08/27 1444 98.8 96 18 124/59 96 Room Air 08/27 1300 Room Air Room Air 08/27 1155 98.6 104 18 129/60 96 Room Air 08/27 0929 95.7 106 18 128/87 98 Room Air Intake & Output 08/28 0800 08/28 0000 08/27 1600 Intake Total 741 507 9980 Output Total Balance 369 326 0732 Intake, IV 120 060 8199 Intake, Oral 240 480 Patient 217 lb 217 lb Weight Weight Bed scale Measurement Method Physical Exam General Appearance: Alert, Oriented X3, Cooperative, Mild Distress Skin: No Rashes, No Breakdown Skin Temp/Moisture Exam: Warm/Dry Sepsis Skin Exam (color): Normal for Ethnicity HEENT: Atraumatic Cardiovascular: Normal S1, Normal S2, No Murmurs Lungs: Clear to Auscultation, Normal Air Movement Abdomen: Soft, No Tenderness Neurological: Normal Speech Extremities: small ulcers on bilateral lower extremities. left one appears healed. Last 24 Hrs of Lab/Toby Results Last 24 Hrs of Labs/Mics: Laboratory Tests 08/28/17 0715: Anion Gap 10, Estimated GFR 59 L, BUN/Creatinine Ratio 9.0, CBC w Diff NO MAN DIFF REQ, RBC 3.54 L, MCV 77.4 L, MCH 26.1 L, MCHC 33.7, RDW 14.1, MPV 6.7 L , Gran % 58.9, Lymphocytes % 31.1, Monocytes % 8.0, Eosinophils % 1.7, Basophils % 0.3, Absolute Granulocytes 2.1, Absolute Lymphocytes 1.1 L, Absolute Monocytes 0.3, Absolute Eosinophils 0.1, Absolute Basophils 0 08/27/17 2035: Lactic Acid 2.0 08/27/17 1830: Lactic Acid 2.3 H 08/27/17 1505: Lactic Acid Cancelled 08/27/17 1417: Lactic Acid 3.1 H 08/27/17 1225: Anion Gap 12, Estimated GFR 53 L, BUN/Creatinine Ratio 14.5, Glucose 237 H, Lactic Acid 2.9 H, Calcium 7.8 L, Total Bilirubin 0.3, Direct Bilirubin 0.3, AST 74 H, ALT 54 H, Alkaline Phosphatase 146 H, Total Protein 7.4, Albumin 3.5, Lipase 115, CBC w Diff NO MAN DIFF REQ, RBC 4.10 L, MCV 78.6 L, MCH 26.1 L, MCHC 33.2, RDW 14.3, MPV 7.3 L, Gran % 71.5, Lymphocytes % 23.3, Monocytes % 4.0, Eosinophils % 1.0, Basophils % 0.2, Absolute Granulocytes 4.5, Absolute Lymphocytes 1.5, Absolute Monocytes 0.3, Absolute Eosinophils 0.1, Absolute Basophils 0, ESR Westergren 62 H 08/27/17 1205: Lactic Acid Cancelled 08/27/17 1120: Urine Color YEL, Urine Clarity CLEAR, Urine pH 6.0, Ur Specific [place] 1.015, Urine Protein NEG, Urine Ketones NEG, Urine Nitrite NEG, Urine Bilirubin NEG, Urine Urobilinogen 0.2, Ur Leukocyte Esterase NEG, Ur Microscopic EXAM NOT REQUIRED, Urine Hemoglobin NEG, Urine Glucose 100 H 08/27/17 1115: Sodium Cancelled, Potassium Cancelled, Chloride Cancelled, Carbon Dioxide Cancelled, Anion Gap Cancelled, BUN Cancelled, Creatinine Cancelled, BUN/ Creatinine Ratio Cancelled, Glucose Cancelled, Calcium Cancelled Microbiology 08/27 2009 UPPER RESP: Surveillance Culture - RECD 08/27 1727 STOOL: Clostridium difficile Toxin A & B - COLB 08/27 1439 BLOOD: Blood Culture - RES GRAM POSITIVE COCCI 08/27 1404 BLOOD: Blood Culture - RECD Assessment/Plan Assessment: 52-year-old female with past medical history significant for diabetes, opiate use disorder, on methadone, chronic venous stasis follows with Dr Dobuler, anxiety, depression, GERD and chronic back pain who presented to the ED with complains of abdominal pain and lower extremity ulcers. Assessment: 1. Bilateral lower extremity ulcers with cellulitis 2. DIPESH - resolved 3. Elevated Lactic Acid - resolved 4. History of diabetes 5. History of opiate use on methadone 6. Abdominal Pain Plan: * Continue IV Unasyn 3g q6 to cover for underlying cellulits * Blood cultures show GPC in clusters. Await final culture. * U/S of right lower extremity to assess for underlying abscess - pending. * Keep legs elevated. * Her abdominal pain is of unclear etiology. Her imaging has been negative so far. Supportive care and continue her home medication bentyl as needed. * Insulin SS with Accucheks * Levemir 15 units pm and 10 units am (home dose) * Continue Methadone 85mg daily. * Diet: Diabetic * DVT Prophylaxis: SC Lovenox * Code: Full Code Problem List: 1. Wound infection Pain Ratin Pain Location: none Pain Goal: Remain pain free Pain Plan: none Tomorrow's Labs & Rationales: CBC, BEP Driss Fernández 08/28/17 1510: Attending MD Review Statement Attending Statement Attending MD Statement: examined this patient, discuss w/resident/PA/AUTOMATIC CLIPPER, agreed w/resident/PA/AUTOMATIC CLIPPER, reviewed EMR data (avail), discussed with nursing, discussed with case mgmt Attending Assessment/Plan: Patient seen and examined at bedside. Bilateral lower extremity ulcers with cellulitis- Patient admitted with the wound infection and blood cultures are growing gram-positive cocci in one bottle. Patient switched to vancomycin from Unasyn for now. Will follow-up on the wound culture results. Discussed with patient the care plan Bilateral lower extremity ulcers with cellulitis- Patient admitted with the wound infection and blood cultures are growing gram-positive cocci in one bottle. Patient switched to vancomycin from Unasyn for now. Will follow-up on the wound culture results. Discussed with patient the care plan
[2017-08-28 07:57] LABS: ABSOLUTE BASOPHIL COUNT 0 /CUMM (0.0-0.2); ABSOLUTE EOSINOPHIL COUNT 0.1 /CUMM (0.0-0.7); ABSOLUTE GRANULOCYTE CT 2.1 /CUMM (1.4-6.5); ABSOLUTE LYMPH COUNT 1.1 /CUMM (1.2-3.4); ABSOLUTE MONOCYTE COUNT 0.3 /CUMM (0.10-0.60); BASOPHIL % 0.3 % (0.0-2.0); EOSINOPHIL % 1.7 % (0-5); GRANULOCYTE % 58.9 % (42.2-75.2); HEMATOCRIT 27.4 % (37-47); MEAN CORPUSCULAR HGB 26.1 PG (27.0-31.0); MEAN CORPUSCULAR HGB CONC 33.7 G/DL (33.0-37.0); MEAN CORPUSCULAR VOLUME 77.4 FL (81.0-99.0); MEAN PLATELET VOLUME 6.7 FL (7.4-10.4); PLATELET COUNT 203 /CUMM (130-400); RBC DISTRIBUTION WIDTH 14.1 % (11.5-14.5); RED BLOOD CELL CT 3.54 /CUMM (4.20-5.40); WHITE BLOOD CELL COUNT 3.5 /CUMM (4.8-10.8)
--- NOTE | 2017-08-28 08:57 | PN- Wound Care ---
Subjective Subjective: Patient presented the wound care center yesterday with abdominal pain and nausea vomiting diarrhea and erythema of the right leg in which she is had chronic recurrent venous stasis ulcers. She was referred to the emergency room for concerns over cellulitis. Blood cultures are positive for GPC's identification pending. Objective Vital Signs and I&Os Vital Signs Result Date Time Pulse Ox 98 08/28 637 B/P 112/66 08/28 637 O2 Delivery Room Air 08/28 637 Temp 96.6 08/28 637 Pulse 124 08/28 06 Resp 20 08/28 637 O2 Flow Rate Room Air 08/27 2004 Intake & Output 08/28 0000 08/27 1600 08/27 0800 Intake Total 630 1250 Output Total Balance 630 1250 Intake, IV 150 1250 Intake, Oral 480 Patient 217 lb 217 lb Weight Weight Bed scale Measurement Method Physical Exam: There are bilateral venous stasis ulcers which have red fill present on admission without undermining sinus tracking or exposed bone. There is erythema and edema of the right pretibial area. Impression/Plan Impression/Plan Impression/Plan: 52-year-old woman with diabetes chronic lower extremity edema venous insufficiency admitted with cellulitis of the right lower extremity associated with gram-positive bacteremia. Recommend aggressive leg elevation wound cleansing and Xeroform dressings changed daily. There is a focal area of edema anteriorly and would suggest ultrasound to rule out subcutaneous collection. Continue current antibiotics pending identification of positive blood cultures
--- NOTE | 2017-08-28 15:46 | Cons- Infect Disease ---
General Information and HPI Consulting Request Date of Consult: 08/28/17 Requested By: Jolene CERRATO,Driss Ball Reason for Consult: Rule out bilateral lower extremity cellulitis Source of Information: patient, old records History of Present Illness: This is a 52-year-old woman with diabetes, chronic back pain/opiate abuse, maintained on methadone, GERD and chronic venous stasis, with a history of recurrent cellulitis of both lower extremities, most recently hospitalized for this 5 months prior to admission, at which time she was afebrile with a normal white blood cell count, who noted the development of open wounds, with drainage, pain, erythema and edema of both lower extremities 4 days prior to admission, admitted on August 27 with persistent discomfort in the lower extremities and more acute onset of nausea, vomiting, abdominal pain, diarrhea and a fever of 100.5. On admission she was afebrile. Laboratory data revealed a white blood cell count of 6000, glucose 237, BUN/creatinine 16 and 1.1, lactic acid 2.9, alkaline phosphatase 146, AST/ALT 74 and 54. Urinalysis negative. X-rays of both tibiae and fibulae were negative for osteomyelitis. CT of the abdomen and pelvis with IV contrast revealed stable, mild intrahepatic biliary ductal dilatation, with a prominent common bile duct, status post cholecystectomy. She was begun on Unasyn and Vancomycin, both of which appear to have been discontinued today. She has remained afebrile since admission. This morning one blood culture was reported positive for gram-positive cocci in clusters. She continues to complain of pain in both lower extremities but notes improvement in her abdominal pain, with no further vomiting or diarrhea. Allergies/Medications Allergies: Coded Allergies: Sulfa (Sulfonamide Antibiotics) (Intermediate, RASH, BUT OK WITH BACTRIM ) cephalexin (From Keflex) (Intermediate, RASH/ANKLE SWELLING 06/11/16) influenza virus vaccine tv 2013-(18-49 yrs),rcmb (From Flublok) (Intermediate, RASH/SWELLING 06/11/16) pneumococcal vaccine (From Pneumovax 23) (Intermediate, RASH/SWELLING 06/11/16) acetaminophen (From Tylenol) (Severe, INCREASES LIVER ENZYMES 06/11/16) erythromycin base (Intermediate, GI UPSET 06/11/16) ibuprofen (Intermediate, GI UPSET 06/11/16) ketorolac (From Toradol) (Intermediate, GI UPSET 06/11/16) naproxen (Intermediate, GI UPSET 06/11/16) Home Med List: Dicyclomine HCl 20 MG TABLET 1 TAB PO TID GI (Reported) Duloxetine HCl (Cymbalta) 60 MG CAPSULE.DR 2 CAP PO QPM Depression (Reported) Furosemide (Lasix) 40 MG TABLET 1 TAB PO BID DIURETIC (Reported) Hydroxyzine Pamoate (Vistaril) 50 MG CAPSULE 2 CAP PO TID ANXIETY (Reported) Insulin Glargine,Hum.rec.anlog (Lantus Solostar) 100 UNIT/ML (3 ML) INSULN.PEN 10 UNIT SC QAM DM (Reported) Insulin Glargine,Hum.rec.anlog (Lantus Solostar) 100 UNIT/ML (3 ML) INSULN.PEN 15 UNITS SC QPM DM (Reported) Metformin HCl (Glucophage) 1,000 MG TABLET 1 TAB PO BID DM (Reported) Methadone HCl 10 MG/ML ORAL.CONC 85 MG PO DAILY CHRONIC PAIN (Reported) Pantoprazole Sodium 40 MG TABLET.DR 1 TAB PO DAILY AC GI (Reported) Potassium Chloride 10 MEQ TABLET.ER 1 TAB PO BID SUPPLEMENT (Reported) Quetiapine Fumarate 100 MG TABLET 1 TAB PO QAM MENTAL HEALTH (Reported) Quetiapine Fumarate (Seroquel) 100 MG TABLET 5 TAB PO QPM Depression ( Reported) Trazodone HCl 150 MG TABLET 2 TAB PO QHS SLEEP/MENTAL HEALTH (Reported) Past History Travel History Traveled to [place] past 21 day No Medical History Blood Transfusion Hx: No Neurological: migraine EENT: NONE Cardiovascular: NONE Respiratory: pneumonia Gastrointestinal: colitis, diverticulitis, pancreatitis, ACID REFLUX C DIFF LA grade B esophagitis, erosive gastropathy Hepatic: NONE Renal: NONE Musculoskeletal: fibromyalgia, osteoarthritis Psychiatric: NARCOTIC ABUSE CHRONIC PAIN MANAGEMENT Endocrine: diabetes Blood Disorders: NONE Cancer(s): NONE FITTINGS TIGHTENER/Reproductive: endometriosis History of MRSA: No History of VRE: No History of CDIFF: Yes Isolation History: Contact Surgical History Surgical History: appendectomy, cholecystectomy, hernia repair-umbilical, hysterectomy, OVARIAN CYST REMOVAL Psychosocial History Where Do You Live? Home Services at Home: None Smoking Status: Never Smoked Review of Systems Review of Systems All Other Systems: Reviewed and Negative Exam & Diagnostic Data Last 24 Hrs of Vital Signs/I&O Vital Signs Date Time Temp Pulse Resp B/P B/P Pulse O2 O2 Flow FiO2 Mean Ox Delivery Rate 08/28 0800 Room Air 08/28 0638 96.6 124 20 112/66 98 Room Air 08/28 0053 97 94 08/27 2357 106 98 08/27 2004 98.5 95 20 110/62 98 Room Air Room Air 08/27 1922 98.8 103 20 110/55 95 Room Air 08/27 1722 97.5 101 18 101/59 95 Intake & Output 08/28 1600 08/28 0800 08/28 0000 Intake Total 1080 840 630 Output Total Balance 1080 840 630 Intake, IV 600 600 150 Intake, Oral 480 240 480 Patient 217 lb Weight Weight Bed scale Measurement Method Physical Exam Other Physical Findings: She is awake and alert in no acute distress. She is afebrile. Skin reveals no rash. HEENT exam is negative. Neck is supple with no adenopathy. Lungs are clear. Heart regular rhythm with no murmur. Abdomen is obese, soft, nontender with positive bowel sounds. Back no CVA tenderness. Extremities bilateral lower extremity superficial ulcerations, with erythema and mild edema, with an area of induration over the anterior tibial aspect of the right leg, quite tender to palpation; 1+ pulses both lower extremities. Neuro is without focality. Last 24 Hours of Lab Results: Laboratory Tests 08/28 08/27 08/27 0715 2035 1830 Chemistry Sodium (137 - 145 mmol/L) 144 Potassium (3.5 - 5.1 mmol/L) 3.3 L Chloride (98 - 107 mmol/L) 104 Carbon Dioxide (22 - 30 mmol/L) 30 Anion Gap (5 - 16) 10 BUN (7 - 17 mg/dL) 9 Creatinine (0.5 - 1.0 mg/dL) 1.0 Estimated GFR (>60 ml/min) 59 L BUN/Creatinine Ratio (7 - 25 %) 9.0 Lactic Acid (0.7 - 2.1 mmol/L) 2.0 2.3 H Hematology CBC w Diff NO MAN DIFF REQ WBC (4.8 - 10.8 /CUMM) 3.5 L RBC (4.20 - 5.40 /CUMM) 3.54 L Hgb (12.0 - 16.0 G/DL) 9.2 L Hct (37 - 47 %) 27.4 L MCV (81.0 - 99.0 FL) 77.4 L MCH (27.0 - 31.0 PG) 26.1 L MCHC (33.0 - 37.0 G/DL) 33.7 RDW (11.5 - 14.5 %) 14.1 Plt Count (130 - 400 /CUMM) 203 MPV (7.4 - 10.4 FL) 6.7 L Gran % (42.2 - 75.2 %) 58.9 Lymphocytes % (20.5 - 51.1 %) 31.1 Monocytes % (1.7 - 9.3 %) 8.0 Eosinophils % (0 - 5 %) 1.7 Basophils % (0.0 - 2.0 %) 0.3 Absolute Granulocytes (1.4 - 6.5 /CUMM) 2.1 Absolute Lymphocytes (1.2 - 3.4 /CUMM) 1.1 L Absolute Monocytes (0.10 - 0.60 /CUMM) 0.3 Absolute Eosinophils (0.0 - 0.7 /CUMM) 0.1 Absolute Basophils (0.0 - 0.2 /CUMM) 0 Last 24 Hours of Toby Results: Blood cultures August 27 1 bottle positive for gram-positive cocci in clusters Diagnostic Data Recent Imaging Findings: X-rays of both tibiae and fibulae were negative for osteomyelitis. CT of the abdomen and pelvis with IV contrast revealed stable mild intrahepatic biliary ductal dilatation, with a prominent common bile duct, status post cholecystectomy. Assessment/Plan Assessment/Plan Impression: This is a 52-year-old woman with diabetes and chronic venous stasis both lower extremities, admitted on August 27 with the development of open wounds, with drainage, pain, erythema and edema of both lower extremities 4 days prior to admission and the more acute onset of nausea, vomiting, abdominal pain, diarrhea and fever, found to be afebrile with a normal white blood cell count and mildly elevated liver enzymes, with a CT of the abdomen and pelvis negative for any acute process, and with one blood culture reported positive for gram-positive cocci in clusters. The significance of the positive blood culture is unclear. She does have inflammation of both lower extremities, particularly the right leg, with an area of induration over the anterior tibial aspect; therefore the positive blood culture could be secondary to cellulitis, though she has no fever or leukocytosis. Of note she has been hospitalized twice over the past year for "cellulitis", with no fever or leukocytosis on either of those hospitalizations. The positive blood culture could represent a contaminant but, pending results, she can be continued on antibiotics. The significance of her GI symptoms is unclear, particularly as they appear to be resolved. They could represent a biliary process, for example cholangitis, with a prominent common bile duct and dilated ducts on the CT scan, though these appear to be stable and are felt to be related to her cholecystectomy. Additionally her liver enzymes have been elevated on previous testing and, therefore, may be secondary to another process. Suggestion: 1. Follow-up final blood culture 2. Follow-up results of her recent right leg ultrasound 3. Elevation of both lower extremities 4. Further evaluation of her GI symptoms and elevated liver enzymes if they persist 5. Continue Unasyn 3 g IV every 6 hours pending above Consult Acknowledgment - Thank you for your consult request.
--- NOTE | 2017-08-28 15:59 | Event Note ---
Event Note Event Note: Methadone dose was confirmed from [facility] to be 85mg PO (liquid). Liquid to tab is equal conversion. Confirmed with pharmacy.
--- NOTE | 2017-08-28 16:42 | ULTRASOUND REPORT ---
EXAMINATION: US SUPERFICIAL IMAGING, EXTREMITY CLINICAL INFORMATION: Pain and increased purulent drainage. Would like superficial check of her abscess in leg (right). COMPARISON: Right tibia and fibula dated 08/27/2017. TECHNIQUE: Focused ultrasound of the area of clinical concern in the anterior lateral watkins was performed. FINDINGS: There is extensive cutaneous and subcutaneous soft tissue edema is seen in the area of discoloration and purulent drainage in the right lower leg in the anterolateral watkins region. No focal drainable fluid collection is seen. With color Doppler imaging, no hyperemia is noted. IMPRESSION: 1. Extensive cutaneous and subcutaneous soft tissue edema is seen in region of patient's clinical concern. This may be related to cellulitis given the clinical presentation. 2. No drainable abscess collection is seen.
[2017-08-28 22:18] VITALS: BP 100/60
[2017-08-29 06:57] VITALS: BP 106/66
--- NOTE | 2017-08-29 07:15 | PN- Housestaff ---
Tri CERRATO,[facility] 08/29/17 0714: Subjective Follow-up For: Leg Ulcers Abdominal Pain GPC in blood Subjective: Patient seen and examined. States feeling okay. Still has significant pain in her legs and is concerned about the discoloration. All questions were answered. Review of Systems Constitutional: Reports: no symptoms. Objective Last 24 Hrs of Vital Signs/I&O Vital Signs Date Time Temp Pulse Resp B/P B/P Pulse O2 O2 Flow FiO2 Mean Ox Delivery Rate 08/29 0657 97.5 86 20 106/66 91 Room Air 08/29 0113 101 95 08/29 0000 Room Air 08/28 2218 98.7 101 20 100/60 94 Room Air 08/28 1600 98 Room Air 08/28 0800 Room Air Intake & Output 08/29 0800 08/29 0000 08/28 1600 Intake Total 1100 1300 1080 Output Total 400 Balance 700 1300 1080 Intake, IV 800 700 600 Intake, Oral 300 600 480 Output, Urine 400 Physical Exam General Appearance: Alert, Oriented X3, Cooperative, Mild Distress Skin: No Rashes, No Breakdown Skin Temp/Moisture Exam: Warm/Dry Sepsis Skin Exam (color): Normal for Ethnicity HEENT: Atraumatic Cardiovascular: Normal S1, Normal S2, No Murmurs Lungs: Normal Air Movement, mild wheezing Abdomen: Soft, epigastric and RUQ tenderness to palpation Neurological: Normal Speech Extremities: bilateral lower extremity ulcers (healing) with edema and erythema Last 24 Hrs of Lab/Toby Results Last 24 Hrs of Labs/Mics: Laboratory Tests 08/29/17 0705: Anion Gap 9, Estimated GFR 48 L, BUN/Creatinine Ratio 6.7 L, CBC w Diff NO MAN DIFF REQ, RBC 3.60 L, MCV 78.7 L, MCH 26.2 L, MCHC 33.3, RDW 14.6 H, MPV 6.9 L, Gran % 45.9, Lymphocytes % 41.1, Monocytes % 7.5, Eosinophils % 5.2 H, Basophils % 0.3, Absolute Granulocytes 1.8, Absolute Lymphocytes 1.6, Absolute Monocytes 0.3, Absolute Eosinophils 0.2, Absolute Basophils 0 Microbiology 08/29 900 BLOOD: Blood Culture - ORD 08/29 900 BLOOD: Blood Culture - ORD Assessment/Plan Assessment: 52-year-old female with past medical history significant for diabetes, opiate use disorder, on methadone, chronic venous stasis follows with Dr Albarran, anxiety, depression, GERD and chronic back pain who presented to the ED with complains of abdominal pain and lower extremity ulcers. Assessment: 1. Bilateral lower extremity ulcers with cellulitis 2. DIPESH 3. Elevated Lactic Acid - resolved 4. History of diabetes 5. History of opiate use on methadone 6. Abdominal Pain - Chronic 7. Transaminits Plan: * Continue IV Unasyn 3g q6 to cover for underlying cellulits * Blood cultures show GPC in clusters. Await final culture. * Repeat Blood cultures x 2 * Echocardiogram to r/o Endocarditis - pending * U/S of right lower extremity showed extensive cutaneous and subcutaneous soft tissue edema with no drainable collection. * Continue leg elevation. * Her Cr is slightly elevated again this morning and Na. Encourage PO hydration. * Her abdominal pain is of unclear etiology. She does state it is chronic in nature. Her imaging has been negative so far. Supportive care and continue her home medication bentyl as needed. * Trend LFTs - unclear as to why the elevation. Continue to trend. * Wound care with daily cleansing and Xeroform dressings. * Insulin SS with Accucheks * Levemir 15 units pm and 10 units am (home dose) * Continue Methadone 85mg daily. * Diet: Diabetic * DVT Prophylaxis: SC Lovenox * Code: Full Code Over the weekend Dr Natarajan will be covering on 08/[address] Elizondo on 08/31 Problem List: 1. Wound infection Pain Ratin Pain Location: none Pain Goal: Remain pain free Pain Plan: none Tomorrow's Labs & Rationales: CBC, BEP Driss Fernández 08/29/17 1335: Attending MD Review Statement Attending Statement Attending MD Statement: examined this patient, discuss w/resident/PA/BARBER [employer] MANAGER, agreed w/resident/PA/BARBER SH[employer] MANAGER, reviewed EMR data (avail), discussed with nursing, discussed with case mgmt Attending Assessment/Plan: Bilateral lower extremity ulcers with cellulitis- Patient admitted with the wound infection and blood cultures are growing gram-positive cocci in one bottle which is grwoing now staph aureus and alpha strept. plan is to cont on usasyn for now pending senstivities. ID following. Redness seems to be better today . F/u on Echo results. Pain management- cont on methadone. Switched iv dilaudid to po dilaudid 2mg q6h prn for now. d/w pt the care plan.
[2017-08-29 07:57] LABS: ABSOLUTE BASOPHIL COUNT 0 /CUMM (0.0-0.2); ABSOLUTE EOSINOPHIL COUNT 0.2 /CUMM (0.0-0.7); ABSOLUTE GRANULOCYTE CT 1.8 /CUMM (1.4-6.5); ABSOLUTE LYMPH COUNT 1.6 /CUMM (1.2-3.4); ABSOLUTE MONOCYTE COUNT 0.3 /CUMM (0.10-0.60); BASOPHIL % 0.3 % (0.0-2.0); EOSINOPHIL % 5.2 % (0-5); GRANULOCYTE % 45.9 % (42.2-75.2); HEMATOCRIT 28.3 % (37-47); MEAN CORPUSCULAR HGB 26.2 PG (27.0-31.0); MEAN CORPUSCULAR HGB CONC 33.3 G/DL (33.0-37.0); MEAN CORPUSCULAR VOLUME 78.7 FL (81.0-99.0); MEAN PLATELET VOLUME 6.9 FL (7.4-10.4); PLATELET COUNT 217 /CUMM (130-400); RBC DISTRIBUTION WIDTH 14.6 % (11.5-14.5); WHITE BLOOD CELL COUNT 3.9 /CUMM (4.8-10.8)
--- NOTE | 2017-08-29 08:37 | PN- Infect Dx ---
Subjective Subjective: Afebrile. She continues to complain of lower extremity pain. Objective Last 24 Hrs of Vital Signs/I&O Vital Signs Date Time Temp Pulse Resp B/P B/P Pulse O2 O2 Flow FiO2 Mean Ox Delivery Rate 08/29 0657 97.5 86 20 106/66 91 Room Air 08/29 0113 101 95 08/29 0000 Room Air 08/28 2218 98.7 101 20 100/60 94 Room Air 08/28 1600 98 Room Air Intake & Output 08/29 1600 08/29 0800 08/29 0000 Intake Total 1100 1300 Output Total 400 Balance 700 1300 Intake, IV 800 700 Intake, Oral 300 600 Output, Urine 400 Physical Exam Other Physical Findings: She appears comfortable in no acute distress Extremities decreased erythema and edema of both lower extremities, mildly tender to palpation, with mild induration over the anterior tibial aspect of her right leg Results Last 24 Hours of Lab Results: Laboratory Tests 08/29 0705 Chemistry Sodium Pending Potassium Pending Chloride Pending Carbon Dioxide Pending Anion Gap Pending BUN Pending Creatinine Pending BUN/Creatinine Ratio Pending Hematology CBC w Diff NO MAN DIFF REQ WBC (4.8 - 10.8 /CUMM) 3.9 L RBC (4.20 - 5.40 /CUMM) 3.60 L Hgb (12.0 - 16.0 G/DL) 9.4 L Hct (37 - 47 %) 28.3 L MCV (81.0 - 99.0 FL) 78.7 L MCH (27.0 - 31.0 PG) 26.2 L MCHC (33.0 - 37.0 G/DL) 33.3 RDW (11.5 - 14.5 %) 14.6 H Plt Count (130 - 400 /CUMM) 217 MPV (7.4 - 10.4 FL) 6.9 L Gran % (42.2 - 75.2 %) 45.9 Lymphocytes % (20.5 - 51.1 %) 41.1 Monocytes % (1.7 - 9.3 %) 7.5 Eosinophils % (0 - 5 %) 5.2 H Basophils % (0.0 - 2.0 %) 0.3 Absolute Granulocytes (1.4 - 6.5 /CUMM) 1.8 Absolute Lymphocytes (1.2 - 3.4 /CUMM) 1.6 Absolute Monocytes (0.10 - 0.60 /CUMM) 0.3 Absolute Eosinophils (0.0 - 0.7 /CUMM) 0.2 Absolute Basophils (0.0 - 0.2 /CUMM) 0 Last 24 Hours of Toby Results: Blood cultures August 27 1 bottle positive for Staph aureus Recent Imaging Studies: Right leg ultrasound reveals extensive cutaneous and subcutaneous soft tissue edema, with no focal drainable fluid collection Assessment/Plan ID Impression: Stable, with temperatures and white blood cell count remaining normal, on Unasyn , Day 2 of treatment for bilateral lower extremity cellulitis, with one blood culture positive for Staph aureus, which is presumably secondary to the cellulitis. She does have mild right lower extremity induration and further evaluation, for example with MRI, may need to be considered if this persists. Suggestion: 1. Repeat blood cultures 2 2. Echocardiogram 3. Will need to consider further evaluation of her right lower extremity (for example MRI) if the induration persists 4. Elevation of both lower extremities 5. Repeat liver enzymes 6. Continue Unasyn pending above
--- NOTE | 2017-08-29 08:39 | PN- Wound Care ---
Subjective Subjective: Patient continues to complain of pain. Blood cultures reveal a strep and staph aureus further sensitivities pending. There is no evidence of localized abscess Objective Vital Signs and I&Os Vital Signs Result Date Time Pulse Ox 91 08/29 656 B/P 106/66 08/29 656 O2 Delivery Room Air 08/29 656 Temp 97.5 08/29 656 Pulse 86 08/29 06 Resp 20 08/29 656 O2 Flow Rate Room Air 08/27 2004 Intake & Output 08/29 0000 08/28 1600 08/28 0800 Intake Total 1300 1080 840 Output Total Balance 1300 1080 840 Intake, IV 700 600 600 Intake, Oral 600 480 240 Right lower extremity erythema and ulceration persists without significant change there is less edema in the area of her lower extremity ulcerations. Impression/Plan Impression/Plan Impression/Plan: 52-year-old woman with chronic venous stasis ulcers admitted with soft tissue skin infection and bacteremia. Recommend aggressive leg elevation continue daily cleansing and Xeroform follow up blood culture results for antibiotic adjustment.
--- NOTE | 2017-08-29 11:06 | Patient Discharge Instructions ---
Discharge Instructions General Discharge Information You were seen/treated for: Leg Ulcers Special Instructions: Please follow up with your PCP and wound doctor within one week of discharge. Please have a Vancomycin trough on 09/09/17 Diet Continue normal diet: Yes Recommended Diet: Diabetic Activity Full Activity/No Limits: Yes Acute Coronary Syndrome Inclusion Criteria At DC or during hospital stay patient has or had the following: ACS DIAGNOSIS No Discharge Core Measures Meds if any: Prescribed or Continued at Discharge Meds if any: NOT Prescribed or Continued at Discharge Congestive Heart Failure Inclusion Criteria At DC or during hospital stay patient has or had the following: CHF DIAGNOSIS No Discharge Core Measures Meds if any: Prescribed or Continued at Discharge Meds if any: NOT Prescribed or Continued at Discharge Cerebrovascular accident Inclusion Criteria At DC or during hospital stay patient has or had the following: CVA/TIA Diagnosis No Discharge Core Measures Meds if any: Prescribed or Continued at Discharge Meds if any: NOT Prescribed or Continued at Discharge Venous thromboembolism Inclusion Criteria VTE Diagnosis No VTE Type NONE VTE Confirmed by (Test) NONE Discharge Core Measures - Per Current guidelines, there needs to be overlap - treatment for the first 5 days of Warfarin therapy. - If discharged on Warfarin prior to 5 days of - overlap therapy, the patient will need to be - assessed for post discharge needs including - *Post discharge parental anticoagulation - *Warfarin and/or parental anticoagulation education - *Follow up date to check INR post discharge At least 5 days overlap therapy as Inpatient No Meds if any: Prescribed or Continued at Discharge Note: Overlap Therapy is Warfarin and Anticoagulant Meds if any: NOT Prescribed or Continued at Discharge
[2017-08-29 14:51] VITALS: BP 110/65
[2017-08-29 22:05] VITALS: BP 137/90
--- NOTE | 2017-08-30 06:22 | PN- Housestaff ---
See Addendum Subjective Follow-up For: staph aureus blood cx Subjective: Saw pt at bedside this AM. She was sleepy and told me that she was tired and din 't want to speak with me. No overnight events other than seh requested atival last night bc of her anxiety. Review of Systems Constitutional: Reports: no symptoms. EENTM: Reports: no symptoms. Cardiovascular: Denies: chest pain, palpitations. Respiratory: Reports: no symptoms. Gastrointestinal: Reports: abdominal pain. Musculoskeletal: Reports: back pain, joint pain. Objective Last 24 Hrs of Vital Signs/I&O Vital Signs Date Time Temp Pulse Resp B/P B/P Pulse O2 O2 Flow FiO2 Mean Ox Delivery Rate 08/30 0046 92 08/29 2258 96 08/29 2205 98.0 112 18 137/90 93 08/29 1600 Room Air 08/29 1451 98.2 84 20 110/65 93 Room Air 08/29 0657 97.5 86 20 106/66 91 Room Air Intake & Output 08/30 0800 08/30 0000 08/29 1600 Intake Total 700 Output Total Balance 700 Intake, Oral 700 Patient 97.976 kg Weight Physical Exam General Appearance: Alert, Oriented X3, Cooperative, No Acute Distress Skin: No Rashes, No Breakdown HEENT: Atraumatic, PERRLA, EOMI Cardiovascular: Regular Rate, Normal S1, Normal S2, No Murmurs Lungs: Normal Air Movement Abdomen: Soft, No Tenderness Current Medications: Current Medications Sig/Melody Start time Last Medication Dose Route Stop Time Status Admin Acetaminophen 650 MG Q6P PRN 08/27 1730 AC PO Ampicillin Sodium/ 3,000 MG Q6 08/28 1800 AC 08/30 Sulbactam Sodium IV 0601 Sodium Chloride 100 ML Dicyclomine HCl 20 MG TIDPRN PRN 08/27 1730 AC 08/28 PO 2030 Duloxetine HCl 120 MG QPM 08/27 2100 AC 08/29 PO 2007 Enoxaparin Sodium 40 MG DAILY 08/29 0900 AC 08/29 SC 1039 Furosemide 40 MG BID 08/27 2100 AC 08/29 PO 2009 Hydromorphone HCl 2 MG Q6P PRN 08/29 0915 AC 08/30 PO 0427 Hydromorphone HCl 1 MG Q6P PRN 08/27 1900 DC 06/15 IV 0547 Hydroxyzine HCl 50 MG TID PRN 08/27 1730 AC 08/28 PO 0611 Insulin Aspart 0 TIDAC 08/28 0800 AC 08/29 SC 1320 Insulin Detemir 10 UNITS DAILY 08/28 0900 AC 08/29 SC 0850 Insulin Detemir 15 UNITS QPM 08/27 2100 AC 08/29 SC 2009 Lorazepam 0.25 MG ONCE ONE 08/29 2215 DC 08/29 PO 08/29 2216 2222 Methadone HCl 85 MG DAILY 08/28 0900 AC 08/29 PO 1040 Nystatin 1 ROBERT TID 08/27 2129 AC 08/29 TOP 2009 Omeprazole 40 MG DAILY AC 08/27 1730 AC 08/30 PO 0601 Patient Medication 1 ED ONE ONE 08/29 1400 DC 08/29 Teaching ED 08/29 1401 1731 Potassium Chloride 40 MEQ ONCE ONE 08/29 1100 DC 08/29 PO 08/29 1101 1319 Quetiapine Fumarate 500 MG QPM 08/27 2100 AC 08/29 PO 2009 Ramelteon 8 MG QPM 08/27 2100 AC 08/29 PO 2009 Sodium Chloride 1,000 ML Q13H 08/27 1730 DC 08/29 IV 0033 Trazodone HCl 300 MG QPM 08/27 2100 AC 08/29 PO 2009 Last 24 Hrs of Lab/Toby Results Last 24 Hrs of Labs/Mics: Laboratory Tests 08/29/17 0705: Anion Gap 9, Estimated GFR 48 L, BUN/Creatinine Ratio 6.7 L, Total Bilirubin 0.2, Direct Bilirubin 0.2, AST 68 H, ALT 53 H, Alkaline Phosphatase 129 H, Total Protein 6.1 L, Albumin 2.6 L, CBC w Diff NO MAN DIFF REQ, RBC 3.60 L, MCV 78.7 L, MCH 26.2 L, MCHC 33.3, RDW 14.6 H, MPV 6.9 L, Gran % 45.9, Lymphocytes % 41.1, Monocytes % 7.5, Eosinophils % 5.2 H, Basophils % 0.3, Absolute Granulocytes 1.8, Absolute Lymphocytes 1.6, Absolute Monocytes 0.3, Absolute Eosinophils 0.2, Absolute Basophils 0 Microbiology 08/29 1214 BLOOD: Blood Culture - RECD 08/29 1214 BLOOD: Blood Culture - RECD Assessment/Plan Assessment: 52-year-old female with past medical history significant for diabetes, opiate use disorder, on methadone, chronic venous stasis follows with Dr Albarran, anxiety, depression, GERD and chronic back pain who presented to the ED with complains of abdominal pain and lower extremity ulcers. PLAN: 1. Bilateral lower extremity ulcers with cellulitis * Continue IV Unasyn 3g q6 to cover for underlying cellulits * Blood cultures show ONE bottle with staph aureus and one bottle with alpha strep. * Repeat Blood cultures x 2 so far negative * Echocardiogram to r/o Endocarditis - pending * U/S of right lower extremity showed extensive cutaneous and subcutaneous soft tissue edema with no drainable collection. * Continue leg elevation. 2. DIPESH * Her Cr was 1.2 yesterday. She was started on IVF. Pending today's Cr IVF can be stopped. 3. ABD pain (chronic) * Her abdominal pain is of unclear etiology. She does state it is chronic in nature. Her imaging has been negative so far. Supportive care and continue her home medication bentyl as needed. 4. History of diabetes * Insulin SS with Accucheks * Levemir 15 units pm and 10 units am (home dose) 5. History of opiate use on methadone * Continue Methadone 85mg daily. 7. Transaminits * Trend LFTs - unclear as to why the elevation. Continue to trend. Diet: Diabetic DVT Prophylaxis: SC Lovenox Code: Full Code Problem List: 1. Wound infection 2. Cellulitis Pain Ratin Pain Location: chronic in abdomen Pain Goal: Remain pain free Pain Plan: current reg Tomorrow's Labs & Rationales: bep, cbc, lft
[2017-08-30 06:46] VITALS: BP 128/66
[2017-08-30 08:52] LABS: ABSOLUTE BASOPHIL COUNT 0 /CUMM (0.0-0.2); ABSOLUTE EOSINOPHIL COUNT 0.2 /CUMM (0.0-0.7); ABSOLUTE GRANULOCYTE CT 2.7 /CUMM (1.4-6.5); ABSOLUTE LYMPH COUNT 1.4 /CUMM (1.2-3.4); ABSOLUTE MONOCYTE COUNT 0.4 /CUMM (0.10-0.60); BASOPHIL % 0.2 % (0.0-2.0); EOSINOPHIL % 3.5 % (0-5); GRANULOCYTE % 58.3 % (42.2-75.2); HEMATOCRIT 27.6 % (37-47); MEAN CORPUSCULAR HGB 25.9 PG (27.0-31.0); MEAN CORPUSCULAR HGB CONC 32.8 G/DL (33.0-37.0); MEAN CORPUSCULAR VOLUME 78.7 FL (81.0-99.0); PLATELET COUNT 194 /CUMM (130-400); RBC DISTRIBUTION WIDTH 14.3 % (11.5-14.5); WHITE BLOOD CELL COUNT 4.7 /CUMM (4.8-10.8)
[2017-08-30 14:13] VITALS: BP 114/69
--- NOTE | 2017-08-30 20:10 | ECHOCARDIOGRAM REPORT ---
LES MOREL Age: 52 : 1965 Gender: F Exam Date: 08/30/2017 12:01 Exam Location: 2 [address] A Ht (in): 59 Wt (lb): 217 BSA: 2.09 BP: 106 / 66 Ordering Physician: John Bartlett MD Referring Physician: John Bartlett MD Technologist: Susana Turner [facility] Room Number: 233 Indications: Rhythm: Technical Quality: Fair FINDINGS Left Ventricle Normal global left ventricular size, wall thickness, systolic function with no obvious regional wall motion abnormalities. Left ventricular ejection fraction is estimated at > 55 %. Right Ventricle Normal right ventricular size and function. Right Atrium Normal right atrial size. Left Atrium Normal left atrial size. Mitral Valve Structurally normal mitral valve. Trace mitral regurgitation. Aortic Valve No aortic stenosis. Trileaflet aortic valve. Tricuspid Valve Structurally normal tricuspid valve. Trace tricuspid regurgitation. Unable to estimate the right ventricular systolic pressure. Pulmonic Valve Pulmonic valve not well visualized, grossly normal. Pericardium No pericardial effusion. Great Vessels Normal size aortic root. CONCLUSIONS Normal global left ventricular size, wall thickness, systolic function with no obvious regional wall motion abnormalities. Left ventricular ejection fraction is estimated at > 55 %. Normal right ventricular size and function. Unable to estimate the right ventricular systolic pressure. No pericardial effusion. Phani Fischer M.D. (Electronically Signed) Final Date: 30 August 2017 20:10 MEASUREMENTS (Male / Female) Normal Values 2D ECHO LV Diastolic Diameter PLAX 4.0 cm 4.2 - 5.9 / 3.9 - 5.3 cm LV Systolic Diameter PLAX 2.7 cm 2.1 - 4.0 cm LV Fractional Shortening PLAX 32.5 % 25 - 46 % LV Ejection Fraction 2D Teich 61.4 % IVS Diastolic Thickness 1.0 cm LVPW Diastolic Thickness 0.8 cm LV Relative Wall Thickness 0.5 LVOT Diameter 1.9 cm Aortic Root Diameter 2.6 cm LA Systolic Diameter LX 3.1 cm 3.0 - 4.0 / 2.7 - 3.8 cm LA Volume 37.0 cm 18 - 58 / 22 - 52 cm DOPPLER AV Peak Velocity 147.0 cm/s AV Peak Gradient 8.6 mmHg LVOT Peak Velocity 101.0 cm/s LVOT Peak Gradient 4.1 mmHg AV Area Cont Eq pk 1.9 cm TV Peak Velocity 118.0 cm/s TV Peak E Velocity 102.0 cm/s TV Peak A Velocity 44.9 cm/s TV E to A Ratio 2.3 PV Peak Velocity 118.0 cm/s PV Peak Gradient 5.6 mmHg LV E' Lateral Velocity 13.6 cm/s LV E' Septal Velocity 10.4 cm/s
[2017-08-30 23:02] VITALS: BP 110/60
[2017-08-31 06:54] VITALS: BP 114/66
--- NOTE | 2017-08-31 08:04 | PN- Infect Dx ---
Subjective Subjective: Afebrile. She continues to complain of pain in her lower extremities and abdomen and also notes nausea and diarrhea, though only formed/soft stools are reported Objective Last 24 Hrs of Vital Signs/I&O Vital Signs Date Time Temp Pulse Resp B/P B/P Pulse O2 O2 Flow FiO2 Mean Ox Delivery Rate 08/31 0654 98.2 120 18 114/66 92 Room Air 08/30 2302 98.1 100 19 110/60 99 Room Air 08/30 1413 99.4 104 18 114/69 99 Intake & Output 08/31 0800 08/31 0000 08/30 1600 Intake Total 425 1200 100 Output Total 200 650 Balance 225 550 100 Intake, IV 200 400 100 Intake, Oral 225 800 Number 1 2 1 Bowel Movements Output, Urine 200 650 Physical Exam Other Physical Findings: She appears comfortable in no acute distress Lungs are clear Heart regular rhythm with no murmur Abdomen is obese, soft, tender on palpation, right greater than left, with no guarding or rebound, positive bowel sounds Extremities minimal edema both lower extremities, with decreased erythema, tender to palpation; slight induration persists over the anterior tibial aspect of her right leg Results Last 24 Hours of Lab Results: Laboratory Tests 08/31 0740 Chemistry Sodium Pending Potassium Pending Chloride Pending Carbon Dioxide Pending Anion Gap Pending BUN Pending Creatinine Pending BUN/Creatinine Ratio Pending Total Bilirubin Pending Direct Bilirubin Pending AST Pending ALT Pending Alkaline Phosphatase Pending Total Protein Pending Albumin Pending Hematology CBC w Diff Pending WBC Pending RBC Pending Hgb Pending Hct Pending MCV Pending MCH Pending MCHC Pending RDW Pending Plt Count Pending MPV Pending Last 24 Hours of Toby Results: Blood cultures August 27 bottle positive for alpha strep and MRSA Blood cultures 2 August 29 negative Recent Imaging Studies: Echocardiogram August 29 no evidence of any vegetations Assessment/Plan ID Impression: MRSA bacteremia, presumably secondary to her bilateral lower extremity cellulitis, though she remains afebrile with a normal white blood cell count, now on Vancomycin and Unasyn. The isolation of alpha strep from the blood culture raises concern for contamination, though MRSA would be an unusual contaminant. She does have mild right lower extremity induration and further evaluation, for example with MRI, may need to be considered. The etiology of her GI symptoms is unclear with her recent CT of the abdomen and pelvis negative for any acute process. Her liver enzymes were elevated and are decreasing, suggesting a possible biliary process, with the CT scan revealing mild intrahepatic biliary ductal dilatation, though this, along with the prominent common bile duct, was noted on previous imaging and is felt to be secondary to her post cholecystectomy state. Suggestion: 1. Repeat blood cultures 2 2. Consider MRI of the right lower extremity 3. Will need to consider ASHKAN in view of her bacteremia 4. Discontinue Unasyn 5. Continue Vancomycin
[2017-08-31 08:08] LABS: ABSOLUTE BASOPHIL COUNT 0 /CUMM (0.0-0.2); ABSOLUTE EOSINOPHIL COUNT 0.2 /CUMM (0.0-0.7); ABSOLUTE GRANULOCYTE CT 2.2 /CUMM (1.4-6.5); ABSOLUTE LYMPH COUNT 1.5 /CUMM (1.2-3.4); ABSOLUTE MONOCYTE COUNT 0.4 /CUMM (0.10-0.60); BASOPHIL % 0.4 % (0.0-2.0); EOSINOPHIL % 4.2 % (0-5); GRANULOCYTE % 51.3 % (42.2-75.2); HEMATOCRIT 28.3 % (37-47); MEAN CORPUSCULAR HGB 25.9 PG (27.0-31.0); MEAN CORPUSCULAR HGB CONC 33.2 G/DL (33.0-37.0); MEAN CORPUSCULAR VOLUME 78.2 FL (81.0-99.0); MEAN PLATELET VOLUME 7.1 FL (7.4-10.4); PLATELET COUNT 213 /CUMM (130-400); RBC DISTRIBUTION WIDTH 14.3 % (11.5-14.5); RED BLOOD CELL CT 3.63 /CUMM (4.20-5.40); WHITE BLOOD CELL COUNT 4.3 /CUMM (4.8-10.8)
[2017-08-31 09:30] VITALS: BP 120/82
--- NOTE | 2017-08-31 09:47 | PN- Housestaff ---
See Addendum Subjective Follow-up For: MRSA Bacteremia RLE Ulcer DIPESH Subjective: Patient seen and examined today. Per nursing patient spent the entire day sleeping. Patient remained arousable but would quickly doze off. Vital signs stable. Patient requesting pain medication and ativan. Patient appears more alert this evening. Patient complaining of continued pain. States she is unable to eat due to the pain. Review of Systems Constitutional: Reports: see HPI. Objective Last 24 Hrs of Vital Signs/I&O Vital Signs Date Time Temp Pulse Resp B/P B/P Pulse O2 O2 Flow FiO2 Mean Ox Delivery Rate 08/31 0930 98.3 92 15 120/82 95 Room Air 08/31 0654 98.2 120 18 114/66 92 Room Air 08/30 2302 98.1 100 19 110/60 99 Room Air 08/30 1413 99.4 104 18 114/69 99 Intake & Output 08/31 1600 08/31 0800 08/31 0000 Intake Total 425 1200 Output Total 200 650 Balance 225 550 Intake, IV 200 400 Intake, Oral 225 800 Number 1 2 Bowel Movements Output, Urine 200 650 Physical Exam General Appearance: Alert, Cooperative, No Acute Distress HEENT: Atraumatic, Mucous Membr. moist/pink Cardiovascular: Regular Rate, Normal S1, Normal S2 Lungs: Clear to Auscultation, Normal Air Movement Abdomen: Normal Bowel Sounds, Soft, No Tenderness Neurological: Normal Speech, Cranial Nerves 3-12 NL Extremities: bilateral lower extremity ulcers Current Medications: Current Medications Sig/Melody Start time Last Medication Dose Route Stop Time Status Admin Acetaminophen 650 MG Q6P PRN 08/27 1730 AC PO Ampicillin Sodium/ 3,000 MG Q6 08/28 1800 DC 08/31 Sulbactam Sodium IV 0542 Sodium Chloride 100 ML Bisacodyl 10 MG Q12P PRN 08/30 1245 AC ME Bisacodyl 5 MG DAILY 08/30 1241 AC PO Dicyclomine HCl 20 MG TIDPRN PRN 08/27 1730 AC 08/28 PO 2030 Duloxetine HCl 120 MG QPM 08/27 2100 AC 08/30 PO 204 Enoxaparin Sodium 40 MG DAILY 08/29 0900 AC 08/30 SC 1035 Furosemide 40 MG BID 08/27 2100 AC 08/30 PO 204 Hydromorphone HCl 4 MG Q4 HRS NEEDED PRN 08/30 1345 AC 08/31 PO 0637 Hydromorphone HCl 4 MG Q6-PRN PRN 08/30 1245 DC 08/30 PO 1250 Hydromorphone HCl 2 MG Q6P PRN 08/29 0915 OK 08/30 PO 1034 Hydroxyzine HCl 50 MG TID PRN 08/27 1730 AC 08/28 PO 0611 Insulin Aspart 0 TIDAC 08/28 0800 AC 08/30 SC 1713 Insulin Detemir 10 UNITS DAILY 08/28 0900 AC 08/30 SC 1034 Insulin Detemir 15 UNITS QPM 08/27 2100 08/30 SC 2047 Lorazepam 1 MG BID PRN 08/30 1245 AC 08/31 PO 0111 Methadone HCl 85 MG DAILY 08/28 0900 AC 08/30 PO 1035 Nystatin 1 ROBERT TID 08/27 2129 08/30 TOP 204 Omeprazole 40 MG DAILY AC 08/27 1730 AC 08/31 PO 0542 Polyethylene Glycol 17 GM DAILY 08/30 1241 PO Potassium Chloride 40 MEQ ONCE ONE 08/30 1715 DC 08/30 PO 08/30 1716 2046 Potassium Chloride 10 MEQ Q1H 08/30 1345 DC 08/30 IV 08/30 1446 1702 Quetiapine Fumarate 500 MG QPM 08/27 2100 AC 08/30 PO 2047 Ramelteon 8 MG QPM 08/27 2100 AC 08/30 PO 2047 Senna/Docusate Sodium 2 TAB DAILY 08/30 1241 AC PO Trazodone HCl 300 MG QPM 08/27 2100 AC 08/30 PO 2047 Vancomycin HCl 1,250 MG BID 08/30 1400 AC 08/30 Sodium Chloride 250 ML IV 2046 Vancomycin HCl 1,250 MG Q12 08/30 1345 CAN IV Wool Wax Alcohol 1 ROBERT DAILY 08/30 1735 AC 08/30 TOP 2046 Last 24 Hrs of Lab/Toby Results Last 24 Hrs of Labs/Mics: Laboratory Tests 08/31/17 0740: Anion Gap 11, Estimated GFR 43 L, BUN/Creatinine Ratio 7.7, Total Bilirubin 0.3 , Direct Bilirubin 0.2, AST 37 H, ALT 41, Alkaline Phosphatase 122, Total Protein 6.4, Albumin 2.9 L, CBC w Diff NO MAN DIFF REQ, RBC 3.63 L, MCV 78.2 L, MCH 25.9 L, MCHC 33.2, RDW 14.3, MPV 7.1 L, Gran % 51.3, Lymphocytes % 35.2 , Monocytes % 8.9, Eosinophils % 4.2, Basophils % 0.4, Absolute Granulocytes 2.2 , Absolute Lymphocytes 1.5, Absolute Monocytes 0.4, Absolute Eosinophils 0.2, Absolute Basophils 0 Microbiology 08/31 946 BLOOD: Blood Culture - ORD 08/31 946 BLOOD: Blood Culture - ORD Assessment/Plan Assessment: 52-year-old female with past medical history significant for diabetes, opiate use disorder, on methadone, chronic venous stasis follows with Dr Albarran, anxiety, depression, GERD and chronic back pain who presented to the ED with complains of abdominal pain and lower extremity ulcers. PLAN: 1. Bilateral lower extremity ulcers with cellulitis * Discontinued IV Unasyn 3g q6 to cover for underlying cellulits * Continue IV Vancomycin * On contact precautions for MRSA * Blood cultures show ONE bottle with MRSA and one bottle with alpha strep. * Repeat Blood cultures x 2 today * ASHKAN to rule out endocarditis * U/S of right lower extremity showed extensive cutaneous and subcutaneous soft tissue edema with no drainable collection. * Continue leg elevation. 2. DIPESH * Her Cr is 1.3 today. Patient has slept most of the day. Will give her IV fluid hydration. Repeat Cr tomorrow AM. 3. ABD pain (chronic) * Her abdominal pain is of unclear etiology. She does state it is chronic in nature. Her imaging has been negative so far. Supportive care and continue her home medication bentyl as needed. 4. History of diabetes * Insulin SS with Accucheks * Levemir 15 units pm and 10 units am (home dose) 5. History of opiate use on methadone * Continue Methadone 85mg daily. 7. Transaminits * Trend LFTs - unclear as to why the elevation. Continue to trend. Pain control: patient's pain medication was held this morning as patient spent most of the day sleeping. Decreased dose of dilaudid to 2mg from 4mg. Ativan dose decreased as well. Diet: Diabetic DVT Prophylaxis: SC Lovenox Code: Full Code Problem List: 1. MRSA bacteremia 2. ARF Pain Ratin Pain Location: legs Pain Goal: Pain 7 or less Pain Plan: dilaudid tylenol Tomorrow's Labs & Rationales: cbc bep
[2017-08-31 14:33] VITALS: BP 133/73
[2017-08-31 22:00] VITALS: BP 119/69
--- NOTE | 2017-09-01 07:15 | PN- Housestaff ---
Tri CERRATO,[facility] 09/01/17 0715: Subjective Follow-up For: MRSA bacteremia Leg ulcers abdominal pain Subjective: Patient seen and examined. Complains of abdominal pain and leg pain. Expresses displeasure on her dilaudidd being on hold. She is explained the reasoning yet wishes to be back on it. Review of Systems Constitutional: Reports: no symptoms. Objective Last 24 Hrs of Vital Signs/I&O Vital Signs Date Time Temp Pulse Resp B/P B/P Pulse O2 O2 Flow FiO2 Mean Ox Delivery Rate 08/31 2200 97.9 103 22 119/69 95 08/31 1433 98.0 99 22 133/73 93 08/31 0930 98.3 92 15 120/82 95 Room Air Intake & Output 09/01 1600 09/01 0800 09/01 0000 Intake Total 195 1400 Output Total 550 Balance 195 850 Intake, IV 75 600 Intake, Oral 120 800 Number 1 Bowel Movements Output, Urine 550 Physical Exam General Appearance: Alert, Oriented X3, Cooperative, Mild Distress Skin: No Rashes, No Breakdown Skin Temp/Moisture Exam: Warm/Dry Sepsis Skin Exam (color): Normal for Ethnicity HEENT: Atraumatic Cardiovascular: Normal S1, Normal S2, No Murmurs Lungs: Normal Air Movement Abdomen: Soft, RUQ tenderness Neurological: Normal Speech Extremities: small ulcers in healing phase with discoloration on bilateral lower extremities. Last 24 Hrs of Lab/Toby Results Last 24 Hrs of Labs/Mics: Laboratory Tests 09/01/17 0800: Sodium Pending, Potassium Pending, Chloride Pending, Carbon Dioxide Pending, Anion Gap Pending, BUN Pending, Creatinine Pending, BUN/Creatinine Ratio Pending , Total Bilirubin Pending, Direct Bilirubin Pending, AST Pending, ALT Pending, Alkaline Phosphatase Pending, Total Protein Pending, Albumin Pending, CBC w Diff Pending, WBC Pending, RBC Pending, Hgb Pending, Hct Pending, MCV Pending, MCH Pending, MCHC Pending, RDW Pending, Plt Count Pending, MPV Pending Microbiology 08/31 100 BLOOD: Blood Culture - RECD 09/01 1007 BLOOD: Blood Culture - RECD Assessment/Plan Assessment: 52-year-old female with past medical history significant for diabetes, opiate use disorder, on methadone, chronic venous stasis follows with Dr Albarran, anxiety, depression, GERD and chronic back pain who presented to the ED with complains of abdominal pain and lower extremity ulcers. Assessment: 1. Bilateral lower extremity ulcers with cellulitis 2. DIPESH 3. Elevated Lactic Acid - resolved 4. History of diabetes 5. History of opiate use on methadone 6. Abdominal Pain - Chronic 7. Transaminits - resolved 8. MRSA Bacteremia Plan: * Continue IV Vancomycin for MRSA bactermia * Repeat Blood cultures x 2 - pending * Echocardiogram did not reveal any signs of endocarditis. * ASHKAN tomorrow to assess for endocarditis. * U/S of right lower extremity showed extensive cutaneous and subcutaneous soft tissue edema with no drainable collection. * Continue leg elevation. * Her Cr is still slightly elevated. Encourage PO hydration. * Her abdominal pain is of unclear etiology. She does state it is chronic in nature. Continue supportive care and continue her home medication bentyl as needed. * Transaminitis has resolved. No need to further monitor. * Wound care with daily cleansing and Xeroform dressings. * Insulin SS with Accucheks * Levemir 15 units pm and 10 units am (home dose) * Continue Methadone 85mg daily. * Diet: Regular - patient was counselled on her diet but wishes to stay on regular than diabetic. - NPO after midnight. * DVT Prophylaxis: SC Lovenox * Code: Full Code Problem List: 1. MRSA bacteremia Pain Ratin Pain Location: none Pain Goal: Remain pain free Pain Plan: none Tomorrow's Labs & Rationales: CBC, BEP Dane CERRATO,Luisa 09/01/17 1233: Attending MD Review Statement Attending Statement Attending MD Statement: examined this patient, discuss w/resident/PA/LOCOMOTIVE OBSERVER, agreed w/resident/PA/LOCOMOTIVE OBSERVER, reviewed EMR data (avail), discussed with nursing, discussed with case mgmt, reviewed images, amended to note Attending Assessment/Plan: Patient seen and examined, complain of excruciating pain in her legs as well as lower abdomen. Patient on large dose of pain medication including methadone as well as Dilaudid. Patient is admitted with infected lower extremity wound and is growing MRSA in the blood. Vital Signs Date Time Temp Pulse Resp B/P B/P Pulse O2 O2 Flow FiO2 Mean Ox Delivery Rate 08/31 2200 97.9 103 22 119/69 95 08/31 1433 98.0 99 22 133/73 93 on exam; Patient was sleepy when he went into the room but she was arousable. cv; s1, s2, rrr resp; clear abd; soft, nt, bs+ ext; + open with some erythema rle. Laboratory Tests 09/01 0800 Chemistry Sodium (137 - 145 mmol/L) 143 Potassium (3.5 - 5.1 mmol/L) 3.8 Chloride (98 - 107 mmol/L) 97 L Carbon Dioxide (22 - 30 mmol/L) 34 H Anion Gap (5 - 16) 11 BUN (7 - 17 mg/dL) 9 Creatinine (0.5 - 1.0 mg/dL) 1.2 H Estimated GFR (>60 ml/min) 48 L BUN/Creatinine Ratio (7 - 25 %) 7.5 Total Bilirubin (0.2 - 1.3 mg/dL) 0.3 Direct Bilirubin (< 0.4 mg/dL) 0.2 AST (14 - 36 U/L) 50 H ALT (9 - 52 U/L) 38 Alkaline Phosphatase (<127 U/L) 122 Total Protein (6.3 - 8.2 g/dL) 7.2 Albumin (3.5 - 5.0 g/dL) 3.2 L Hematology CBC w Diff NO MAN DIFF REQ WBC (4.8 - 10.8 /CUMM) 5.4 RBC (4.20 - 5.40 /CUMM) 4.22 Hgb (12.0 - 16.0 G/DL) 11.0 L Hct (37 - 47 %) 33.3 L MCV (81.0 - 99.0 FL) 79.1 L MCH (27.0 - 31.0 PG) 26.0 L MCHC (33.0 - 37.0 G/DL) 32.9 L RDW (11.5 - 14.5 %) 14.1 Plt Count (130 - 400 /CUMM) 240 MPV (7.4 - 10.4 FL) 7.5 Gran % (42.2 - 75.2 %) 42.0 L Lymphocytes % (20.5 - 51.1 %) 46.4 Monocytes % (1.7 - 9.3 %) 7.3 Eosinophils % (0 - 5 %) 4.1 Basophils % (0.0 - 2.0 %) 0.2 Absolute Granulocytes (1.4 - 6.5 /CUMM) 2.3 Absolute Lymphocytes (1.2 - 3.4 /CUMM) 2.5 Absolute Monocytes (0.10 - 0.60 /CUMM) 0.4 Absolute Eosinophils (0.0 - 0.7 /CUMM) 0.2 Absolute Basophils (0.0 - 0.2 /CUMM) 0 A/P; 52 y/o F with pmh sig for diabetes, opiate use disorder, on methadone, chronic venous stasis follows with Dr Albarran, anxiety, depression, GERD and chronic back admitted with infected lower extremity wound wityh cellulitis and abd pain. CT abdomen and pelvis did not show any acute finding. Patient is bacteremic with MRSA. Appreciate infectious disease and wound care and put. Patient is scheduled for ASHKAN today. Currently on vancomycin. She is on methadone and Dilaudid for pain management. Patient's blood sugars are controlled on current regimen. Continue the rest of the medications. She is on Lovenox for DVT prophylaxis. We'll follow-up on the results of ASHKAN and then discuss with infectious disease about the further course of antibiotics.
--- NOTE | 2017-09-01 09:00 | PN- Wound Care ---
Subjective Subjective: Is to complain of localized pain over the right leg. Left leg venous stasis ulcers healed right leg ulcer is markedly improved with diminished erythema is now nearly healed Objective Vital Signs and I&Os Vital Signs Result Date Time Pulse Ox 95 08/31 2199 B/P 119/69 08/31 2199 Temp 97.9 08/31 2199 Pulse 103 08/310 Resp 22 08/31 2199 O2 Delivery Room Air 08/31 0930 O2 Flow Rate Room Air 08/27 2004 Intake & Output 09/01 0000 08/31 1600 08/31 0800 Intake Total 1400 118 425 Output Total 550 200 Balance 850 118 225 Intake, IV 600 200 Intake, Oral 800 118 225 Number 1 1 Bowel Movements Output, Urine 550 200 Left leg venous stasis ulcer is healed right leg is markedly improved there is a small residual venous stasis ulcer erythema is markedly decreased as has edema Impression/Plan Impression/Plan Impression/Plan: 52-year-old admitted with soft tissue skin inspection secondary to MRSA in the setting of venous stasis ulcer. Lower extremity ulcers are markedly improved left now healed and right appears almost healed with diminished erythema. Continue leg elevation daily cleansing and Xeroform.
[2017-09-01 09:09] LABS: ABSOLUTE BASOPHIL COUNT 0 /CUMM (0.0-0.2); ABSOLUTE EOSINOPHIL COUNT 0.2 /CUMM (0.0-0.7); ABSOLUTE GRANULOCYTE CT 2.3 /CUMM (1.4-6.5); ABSOLUTE LYMPH COUNT 2.5 /CUMM (1.2-3.4); ABSOLUTE MONOCYTE COUNT 0.4 /CUMM (0.10-0.60); BASOPHIL % 0.2 % (0.0-2.0); EOSINOPHIL % 4.1 % (0-5); MEAN CORPUSCULAR HGB CONC 32.9 G/DL (33.0-37.0); MEAN CORPUSCULAR VOLUME 79.1 FL (81.0-99.0); MEAN PLATELET VOLUME 7.5 FL (7.4-10.4); PLATELET COUNT 240 /CUMM (130-400); RBC DISTRIBUTION WIDTH 14.1 % (11.5-14.5); RED BLOOD CELL CT 4.22 /CUMM (4.20-5.40); WHITE BLOOD CELL COUNT 5.4 /CUMM (4.8-10.8)
[2017-09-01 09:26] LABS: HEMATOCRIT 33.3 % (37-47)
--- NOTE | 2017-09-01 13:48 | PN- Infect Dx ---
Subjective Subjective: Afebrile. She continues to complain of pain in both lower extremities, right greater than left. She does not report any further abdominal pain or diarrhea. Objective Last 24 Hrs of Vital Signs/I&O Vital Signs Date Time Temp Pulse Resp B/P B/P Pulse O2 O2 Flow FiO2 Mean Ox Delivery Rate 08/31 2200 97.9 103 22 119/69 95 08/31 1433 98.0 99 22 133/73 93 Intake & Output 09/01 1600 09/01 0800 09/01 0000 Intake Total 195 1400 Output Total 550 Balance 195 850 Intake, IV 75 600 Intake, Oral 120 800 Number 1 1 Bowel Movements Output, Urine 550 Physical Exam Other Physical Findings: She appears comfortable in no acute distress Lungs are clear Heart regular rhythm with no murmur Abdomen is obese, soft, nontender with positive bowel sounds Extremities bilateral lower extremity erythema and tenderness over the anterior tibial aspects of both legs, with normal edema and no further induration appreciated Results Last 24 Hours of Lab Results: Laboratory Tests 09/01 0800 Chemistry Sodium (137 - 145 mmol/L) 143 Potassium (3.5 - 5.1 mmol/L) 3.8 Chloride (98 - 107 mmol/L) 97 L Carbon Dioxide (22 - 30 mmol/L) 34 H Anion Gap (5 - 16) 11 BUN (7 - 17 mg/dL) 9 Creatinine (0.5 - 1.0 mg/dL) 1.2 H Estimated GFR (>60 ml/min) 48 L BUN/Creatinine Ratio (7 - 25 %) 7.5 Total Bilirubin (0.2 - 1.3 mg/dL) 0.3 Direct Bilirubin (< 0.4 mg/dL) 0.2 AST (14 - 36 U/L) 50 H ALT (9 - 52 U/L) 38 Alkaline Phosphatase (<127 U/L) 122 Total Protein (6.3 - 8.2 g/dL) 7.2 Albumin (3.5 - 5.0 g/dL) 3.2 L Hematology CBC w Diff NO MAN DIFF REQ WBC (4.8 - 10.8 /CUMM) 5.4 RBC (4.20 - 5.40 /CUMM) 4.22 Hgb (12.0 - 16.0 G/DL) 11.0 L Hct (37 - 47 %) 33.3 L MCV (81.0 - 99.0 FL) 79.1 L MCH (27.0 - 31.0 PG) 26.0 L MCHC (33.0 - 37.0 G/DL) 32.9 L RDW (11.5 - 14.5 %) 14.1 Plt Count (130 - 400 /CUMM) 240 MPV (7.4 - 10.4 FL) 7.5 Gran % (42.2 - 75.2 %) 42.0 L Lymphocytes % (20.5 - 51.1 %) 46.4 Monocytes % (1.7 - 9.3 %) 7.3 Eosinophils % (0 - 5 %) 4.1 Basophils % (0.0 - 2.0 %) 0.2 Absolute Granulocytes (1.4 - 6.5 /CUMM) 2.3 Absolute Lymphocytes (1.2 - 3.4 /CUMM) 2.5 Absolute Monocytes (0.10 - 0.60 /CUMM) 0.4 Absolute Eosinophils (0.0 - 0.7 /CUMM) 0.2 Absolute Basophils (0.0 - 0.2 /CUMM) 0 Last 24 Hours of Toby Results: Blood cultures August 29 negative Blood cultures August 31 negative Assessment/Plan ID Impression: Stable, with temperatures and white blood cell count remaining normal, on Vancomycin alone, Day 2 of treatment for MRSA bacteremia, presumably secondary to her bilateral lower extremity cellulitis. The isolation of alpha strep from the blood culture raises concern for contamination, but it is difficult to dismiss the MRSA; therefore she will need to be treated for a minimum of 2 weeks of IV antibiotics. Her transthoracic echocardiogram is negative, but a ASHKAN, as discussed, it is more sensitive and will, therefore, be more helpful in determining the optimal duration of therapy for her MRSA bacteremia. Suggestion: 1. Vancomycin trough level with her a.m. dose on September 02 2. Would pursue a ASHKAN 3. Proceed with placement of a PICC 4. Continue Vancomycin
[2017-09-01 14:37] VITALS: BP 110/72
--- NOTE | 2017-09-01 16:36 | Discharge Summary ---
Visit Information Visit Dates Admission Date: 08/27/17 Discharge Date: 09/03/2017 Hospital Course Course Attending Physician: Dane CERRATO,Luisa Primary Care Physician: Macrina [facility] Course: This is a 52-year-old female with past medical history significant for diabetes, opiate use disorder, on methadone, chronic venous stasis follows with Dr Albarran , anxiety, depression, GERD and chronic back pain who presented to the ED with complains of abdominal pain and lower extremity ulcers. The abdominal pain was worked up and found to be largely chronic in nature. However, her LE ulcers appeared more purulent and there was c/o cellulitis. She was evaluated by cardiology and wound care as. Her bcx drawn at this time showed Staph Aureus and Alpha strep. Pt was started on IV abx and TTE + ASHKAN showed no evidence of valvular vegetation. She also had no subsequent + BCX. She had PICC line placed on 09/02/2017. Plan is for IV Vancomycin at 1250mg daily to complete a 2 week course of treatment (until September 13). MRI was deferred after discussion with ID as likelihood of Osteomyelitis is low. * Check a CBC, BUN/creatinine and Vancomycin trough level on September 08. * Hydromorphone 4mg Q6 PRN. Short supply ordered, as further narcotics will be as per STR MD. * Continue Vancomycin * Follow up vanco trough. Last trough on Sep 02 was 32.6 and vanco dose was decreased. * Methadone 85mg via [facility] foundation * Con't trazadone, seroquel, cymbalta, bentyl, lasix per home regimen * Follow up with wound care * PICC line will need to be removed after course of abx. * Note her baseline Cr seems to be around 1.0-1.3. Monitor her renal function while on Vancomycin. Allergies: Coded Allergies: Sulfa (Sulfonamide Antibiotics) (Intermediate, RASH, BUT OK WITH BACTRIM ) cephalexin (From Keflex) (Intermediate, RASH/ANKLE SWELLING 06/11/16) influenza virus vaccine tv 2012-(18-49 yrs),rcmb (From Flublok) (Intermediate, RASH/SWELLING 06/11/16) pneumococcal vaccine (From Pneumovax 23) (Intermediate, RASH/SWELLING 06/11/16) acetaminophen (From Tylenol) (Severe, INCREASES LIVER ENZYMES 06/11/16) erythromycin base (Intermediate, GI UPSET 06/11/16) ibuprofen (Intermediate, GI UPSET 06/11/16) ketorolac (From Toradol) (Intermediate, GI UPSET 06/11/16) naproxen (Intermediate, GI UPSET 06/11/16) Pertinent Lab Results: Laboratory Tests 09/03/17 0733: Anion Gap 10, Estimated GFR 43 L, BUN/Creatinine Ratio 10.8, CBC w Diff NO MAN DIFF REQ, RBC 3.93 L, MCV 79.1 L, MCH 25.8 L, MCHC 32.6 L, RDW 14.3, MPV 7.4 , Gran % 54.5, Lymphocytes % 32.9, Monocytes % 8.7, Eosinophils % 3.5, Basophils % 0.4, Absolute Granulocytes 2.7, Absolute Lymphocytes 1.6, Absolute Monocytes 0.4, Absolute Eosinophils 0.2, Absolute Basophils 0 09/02/17 0735: Anion Gap 10, Estimated GFR 43 L, BUN/Creatinine Ratio 8.5, CBC w Diff NO MAN DIFF REQ, RBC 3.68 L, MCV 79.1 L, MCH 25.6 L, MCHC 32.3 L, RDW 14.4, MPV 7.2 L, Gran % 48.7, Lymphocytes % 37.4, Monocytes % 8.5, Eosinophils % 5.0, Basophils % 0.4, Absolute Granulocytes 2.2, Absolute Lymphocytes 1.7, Absolute Monocytes 0.4, Absolute Eosinophils 0.2, Absolute Basophils 0, Vancomycin Trough 32.6 H 09/01/17 0800: Anion Gap 11, Estimated GFR 48 L, BUN/Creatinine Ratio 7.5, Total Bilirubin 0.3 , Direct Bilirubin 0.2, AST 50 H, ALT 38, Alkaline Phosphatase 122, Total Protein 7.2, Albumin 3.2 L, CBC w Diff NO MAN DIFF REQ, RBC 4.22, MCV 79.1 L, MCH 26.0 L, MCHC 32.9 L, RDW 14.1, MPV 7.5, Gran % 42.0 L, Lymphocytes % 46.4 , Monocytes % 7.3, Eosinophils % 4.1, Basophils % 0.2, Absolute Granulocytes 2.3 , Absolute Lymphocytes 2.5, Absolute Monocytes 0.4, Absolute Eosinophils 0.2, Absolute Basophils 0 Laboratory Tests 09/03 09/02 0733 0756 Chemistry Sodium (137 - 145 mmol/L) 141 142 Potassium (3.5 - 5.1 mmol/L) 3.8 3.7 Chloride (98 - 107 mmol/L) 95 L 97 L Carbon Dioxide (22 - 30 mmol/L) 35 H 34 H Anion Gap (5 - 16) 10 10 BUN (7 - 17 mg/dL) 14 11 Creatinine (0.5 - 1.0 mg/dL) 1.3 H 1.3 H Estimated GFR (>60 ml/min) 43 L 43 L BUN/Creatinine Ratio (7 - 25 %) 10.8 8.5 Hematology CBC w Diff NO MAN DIFF REQ NO MAN DIFF REQ WBC (4.8 - 10.8 /CUMM) 4.9 4.5 L RBC (4.20 - 5.40 /CUMM) 3.93 L 3.68 L Hgb (12.0 - 16.0 G/DL) 10.1 L 9.4 L Hct (37 - 47 %) 31.1 L 29.1 L MCV (81.0 - 99.0 FL) 79.1 L 79.1 L MCH (27.0 - 31.0 PG) 25.8 L 25.6 L MCHC (33.0 - 37.0 G/DL) 32.6 L 32.3 L RDW (11.5 - 14.5 %) 14.3 14.4 Plt Count (130 - 400 /CUMM) 225 212 MPV (7.4 - 10.4 FL) 7.4 7.2 L Gran % (42.2 - 75.2 %) 54.5 48.7 Lymphocytes % (20.5 - 51.1 %) 32.9 37.4 Monocytes % (1.7 - 9.3 %) 8.7 8.5 Eosinophils % (0 - 5 %) 3.5 5.0 Basophils % (0.0 - 2.0 %) 0.4 0.4 Absolute Granulocytes (1.4 - 6.5 /CUMM) 2.7 2.2 Absolute Lymphocytes (1.2 - 3.4 /CUMM) 1.6 1.7 Absolute Monocytes (0.10 - 0.60 /CUMM) 0.4 0.4 Absolute Eosinophils (0.0 - 0.7 /CUMM) 0.2 0.2 Absolute Basophils (0.0 - 0.2 /CUMM) 0 0 Toxicology Vancomycin Trough (10.0 - 20.0 ug/mL) 32.6 H 06/18 0800 Chemistry Sodium (137 - 145 mmol/L) 143 Potassium (3.5 - 5.1 mmol/L) 3.8 Chloride (98 - 107 mmol/L) 97 L Carbon Dioxide (22 - 30 mmol/L) 34 H Anion Gap (5 - 16) 11 BUN (7 - 17 mg/dL) 9 Creatinine (0.5 - 1.0 mg/dL) 1.2 H Estimated GFR (>60 ml/min) 48 L BUN/Creatinine Ratio (7 - 25 %) 7.5 Total Bilirubin (0.2 - 1.3 mg/dL) 0.3 Direct Bilirubin (< 0.4 mg/dL) 0.2 AST (14 - 36 U/L) 50 H ALT (9 - 52 U/L) 38 Alkaline Phosphatase (<127 U/L) 122 Total Protein (6.3 - 8.2 g/dL) 7.2 Albumin (3.5 - 5.0 g/dL) 3.2 L Hematology CBC w Diff NO MAN DIFF REQ WBC (4.8 - 10.8 /CUMM) 5.4 RBC (4.20 - 5.40 /CUMM) 4.22 Hgb (12.0 - 16.0 G/DL) 11.0 L Hct (37 - 47 %) 33.3 L MCV (81.0 - 99.0 FL) 79.1 L MCH (27.0 - 31.0 PG) 26.0 L MCHC (33.0 - 37.0 G/DL) 32.9 L RDW (11.5 - 14.5 %) 14.1 Plt Count (130 - 400 /CUMM) 240 MPV (7.4 - 10.4 FL) 7.5 Gran % (42.2 - 75.2 %) 42.0 L Lymphocytes % (20.5 - 51.1 %) 46.4 Monocytes % (1.7 - 9.3 %) 7.3 Eosinophils % (0 - 5 %) 4.1 Basophils % (0.0 - 2.0 %) 0.2 Absolute Granulocytes (1.4 - 6.5 /CUMM) 2.3 Absolute Lymphocytes (1.2 - 3.4 /CUMM) 2.5 Absolute Monocytes (0.10 - 0.60 /CUMM) 0.4 Absolute Eosinophils (0.0 - 0.7 /CUMM) 0.2 Absolute Basophils (0.0 - 0.2 /CUMM) 0 Disposition Summary Disposition Principal Diagnosis: staph aureus bacteremia Additional Diagnosis: hx opiate use disorder Discharge Disposition: SNF Discharge Instructions General Discharge Information Code Status: Full Code Patient's Diet: consistent carb Patient's Activity: as tolerated Follow-Up Instructions/Appts: see above Medications at Discharge Discharge Medications: Continue taking these medications: Hydroxyzine Pamoate (Vistaril) 50 MG CAPSULE 2 Capsule ORAL THREE TIMES DAILY Comments: Last Taken:09/01/17 Time: 12:00 AM Pantoprazole Sodium (Pantoprazole Sodium) 40 MG TABLET.DR 1 Tablet ORAL DAILY BEFORE BREAKFAST Comments: Last Taken:09/03/17 Time: 7:00 AM Dicyclomine HCl (Dicyclomine HCl) 20 MG TABLET 1 Tablet ORAL THREE TIMES DAILY Comments: DID NOT RECEIVE WHILE IN HOSPITAL Furosemide (Lasix) 40 MG TABLET 1 Tablet ORAL TWICE DAILY Comments: Last Taken:09/03/17 Time: 8:30 AM Methadone HCl (Methadone HCl) 10 MG/ML ORAL.CONC 85 Milligram ORAL DAILY Comments: Last Taken:09/03/17 Time: 8:30 AM Quetiapine Fumarate (Quetiapine Fumarate) 100 MG TABLET 1 Tablet ORAL Every Morning Qty = 30 Comments: NOT GIVEN WHILE IN HOSPITAL Potassium Chloride (Potassium Chloride) 10 MEQ TABLET.ER 1 Tablet ORAL TWICE DAILY Comments: not given in hospital Trazodone HCl (Trazodone HCl) 150 MG TABLET 2 Tablet ORAL TAKE AT BEDTIME Comments: Last Taken:09/02/17 Time: 8:15 PM Insulin Glargine,Hum.rec.anlog (Lantus Solostar) 100 UNIT/ML (3 ML) INSULN.PEN 10 Unit Inject into fatty tissue Every Morning Comments: Last Taken:09/03/17 Time: 8:30 AM Insulin Glargine,Hum.rec.anlog (Lantus Solostar) 100 UNIT/ML (3 ML) INSULN.PEN 15 Units Inject into fatty tissue Every night Comments: Last Taken:09/02/17 Time: 8:15 PM Metformin HCl (Glucophage) 1,000 MG TABLET 1 Tablet ORAL TWICE DAILY Comments: insulin sliding scale in hospital Quetiapine Fumarate (Seroquel) 100 MG TABLET 5 Tablet ORAL Every night Comments: Last Taken:09/03/17 Time: 8:15 PM Duloxetine HCl (Cymbalta) 60 MG CAPSULE.DR 2 Capsule ORAL Every night Comments: Last Taken:09/02/17 Time: 8:15 PM Start taking the following new medications: Vancomycin HCl (Vancomycin HCl) 1 GRAM VIAL 1,250 Milligram INTRAVEN DAILY Days = 8 No Refills Comments: Last Taken:09/03/17 Time: 11:20 AM Hydromorphone HCl (Hydromorphone HCl) 2 MG TABLET 4 Milligram ORAL EVERY SIX HOURS NEEDED as needed for PAIN SCALE 7-10 ( SEVERE) Qty = 8 No Refills Comments: Last Taken:09/03/17 Time: 2:45 PM Copies To: Macrina CERRATO,Macrina
[2017-09-01 22:13] VITALS: BP 116/64
[2017-09-02 06:08] VITALS: BP 116/82
--- NOTE | 2017-09-02 07:20 | PN- Housestaff ---
Tri CERRATO,[facility] 09/02/17 0720: Subjective Follow-up For: MRSA bacteremia Cellulitis Subjective: Patient seen and examined. Review of Systems Constitutional: Reports: no symptoms. Objective Last 24 Hrs of Vital Signs/I&O Vital Signs Date Time Temp Pulse Resp B/P B/P Pulse O2 O2 Flow FiO2 Mean Ox Delivery Rate 09/02 0608 98.4 90 22 116/82 95 Room Air 09/01 2213 97.8 97 18 116/64 94 Room Air 09/01 1528 Room Air Room Air 09/01 1437 97.5 98 18 110/72 94 Room Air Intake & Output 09/02 0800 09/02 0000 09/01 1600 Intake Total 600 700 780 Output Total 300 Balance 300 700 780 Intake, IV 600 300 Intake, Oral 700 480 Number 1 1 Bowel Movements Output, Urine 300 Physical Exam General Appearance: Alert, Oriented X3, Cooperative, Mild Distress Skin: No Rashes, No Breakdown Skin Temp/Moisture Exam: Warm/Dry Sepsis Skin Exam (color): Normal for Ethnicity HEENT: Atraumatic Cardiovascular: Normal S1, Normal S2, No Murmurs Lungs: Normal Air Movement Abdomen: Soft, No Tenderness Neurological: Normal Speech Extremities: No Edema Last 24 Hrs of Lab/Toby Results Last 24 Hrs of Labs/Mics: Laboratory Tests 09/02/17 0735: Anion Gap 10, Estimated GFR 43 L, BUN/Creatinine Ratio 8.5, CBC w Diff NO MAN DIFF REQ, RBC 3.68 L, MCV 79.1 L, MCH 25.6 L, MCHC 32.3 L, RDW 14.4, MPV 7.2 L, Gran % 48.7, Lymphocytes % 37.4, Monocytes % 8.5, Eosinophils % 5.0, Basophils % 0.4, Absolute Granulocytes 2.2, Absolute Lymphocytes 1.7, Absolute Monocytes 0.4, Absolute Eosinophils 0.2, Absolute Basophils 0, Vancomycin Trough 32.6 H Assessment/Plan Assessment: 52-year-old female with past medical history significant for diabetes, opiate use disorder, on methadone, chronic venous stasis follows with Dr Albarran, anxiety, depression, GERD and chronic back pain who presented to the ED with complains of abdominal pain and lower extremity ulcers. Assessment: 1. Bilateral lower extremity ulcers with cellulitis 2. DIPESH 3. Elevated Lactic Acid - resolved 4. History of diabetes 5. History of opiate use on methadone 6. Abdominal Pain - Chronic 7. Transaminits - resolved 8. MRSA Bacteremia Plan: * Continue IV Vancomycin for MRSA bactermia * Repeat Blood cultures x 2 - negative so far. * TTE and ASHKAN did not reveal any signs of endocarditis. * PICC line placement tomorrow as she will require 2 weeks of Vancomycin * U/S of right lower extremity showed extensive cutaneous and subcutaneous soft tissue edema with no drainable collection. * Continue leg elevation. * Her Cr is still slightly elevated. Encourage PO hydration. * Her abdominal pain is of unclear etiology. She does state it is chronic in nature. Continue supportive care and continue her home medication bentyl as needed. * Transaminitis has resolved. No need to further monitor. * Wound care with daily cleansing and Xeroform dressings. * Insulin SS with Accucheks * Levemir 15 units pm and 10 units am (home dose) * Continue Methadone 85mg daily. * Diet: Regular - patient was counselled on her diet but wishes to stay on regular than diabetic. - NPO after midnight for PICC placement. * DVT Prophylaxis: SC Lovenox * Code: Full Code Problem List: 1. MRSA bacteremia Pain Ratin Pain Location: none Pain Goal: Remain pain free Pain Plan: none Tomorrow's Labs & Rationales: CBC, BEP Dane CERRATO,[facility] 09/02/17 1259: Attending MD Review Statement Attending Statement Attending MD Statement: examined this patient, discuss w/resident/PA/RENTAL SALESPERSON, agreed w/resident/PA/RENTAL SALESPERSON, reviewed EMR data (avail), discussed with nursing, discussed with case mgmt, reviewed images, amended to note Attending Assessment/Plan: Patient seen and examined, came back from ASHKAN. ASHKAN is neg for any vegetations. patient requesting to increase her dialudid and ativan. Vital Signs Date Time Temp Pulse Resp B/P B/P Pulse O2 O2 Flow FiO2 Mean Ox Delivery Rate 09/02 0800 95 Room Air 09/02 0608 98.4 90 22 116/82 95 Room Air 09/01 2213 97.8 97 18 116/64 94 Room Air 09/01 1528 Room Air Room Air 09/01 1437 97.5 98 18 110/72 94 Room Air On exam; aox3, nad. cv; s1, s2, rrr resp; clear abd; soft, nt, bs+ ext; + dressing on b/l le. Laboratory Tests 09/02 0735 Chemistry Sodium (137 - 145 mmol/L) 142 Potassium (3.5 - 5.1 mmol/L) 3.7 Chloride (98 - 107 mmol/L) 97 L Carbon Dioxide (22 - 30 mmol/L) 34 H Anion Gap (5 - 16) 10 BUN (7 - 17 mg/dL) 11 Creatinine (0.5 - 1.0 mg/dL) 1.3 H Estimated GFR (>60 ml/min) 43 L BUN/Creatinine Ratio (7 - 25 %) 8.5 Hematology CBC w Diff NO MAN DIFF REQ WBC (4.8 - 10.8 /CUMM) 4.5 L RBC (4.20 - 5.40 /CUMM) 3.68 L Hgb (12.0 - 16.0 G/DL) 9.4 L Hct (37 - 47 %) 29.1 L MCV (81.0 - 99.0 FL) 79.1 L MCH (27.0 - 31.0 PG) 25.6 L MCHC (33.0 - 37.0 G/DL) 32.3 L RDW (11.5 - 14.5 %) 14.4 Plt Count (130 - 400 /CUMM) 212 MPV (7.4 - 10.4 FL) 7.2 L Gran % (42.2 - 75.2 %) 48.7 Lymphocytes % (20.5 - 51.1 %) 37.4 Monocytes % (1.7 - 9.3 %) 8.5 Eosinophils % (0 - 5 %) 5.0 Basophils % (0.0 - 2.0 %) 0.4 Absolute Granulocytes (1.4 - 6.5 /CUMM) 2.2 Absolute Lymphocytes (1.2 - 3.4 /CUMM) 1.7 Absolute Monocytes (0.10 - 0.60 /CUMM) 0.4 Absolute Eosinophils (0.0 - 0.7 /CUMM) 0.2 Absolute Basophils (0.0 - 0.2 /CUMM) 0 Toxicology Vancomycin Trough (10.0 - 20.0 ug/mL) 32.6 H A/P; 52 y/o F with pmh sig for diabetes, opiate use disorder, on methadone, chronic venous stasis follows with Dr Albarran, anxiety, depression, GERD and chronic back admitted with infected lower extremity wound with cellulitis and abd pain. CT abdomen and pelvis did not show any acute finding. patient with MRSA and Alpha strept Bacteremia. S/p ASHKAN today which is negative for any vegetations. Will discuss with ID about PICC and abx. Continue rest of the mx. blood sugars are stable on current regimen. DVT px; Lovenox.
[2017-09-02 08:29] LABS: ABSOLUTE BASOPHIL COUNT 0 /CUMM (0.0-0.2); ABSOLUTE EOSINOPHIL COUNT 0.2 /CUMM (0.0-0.7); ABSOLUTE GRANULOCYTE CT 2.2 /CUMM (1.4-6.5); ABSOLUTE LYMPH COUNT 1.7 /CUMM (1.2-3.4); ABSOLUTE MONOCYTE COUNT 0.4 /CUMM (0.10-0.60); BASOPHIL % 0.4 % (0.0-2.0); GRANULOCYTE % 48.7 % (42.2-75.2); HEMATOCRIT 29.1 % (37-47); MEAN CORPUSCULAR HGB 25.6 PG (27.0-31.0); MEAN CORPUSCULAR HGB CONC 32.3 G/DL (33.0-37.0); MEAN CORPUSCULAR VOLUME 79.1 FL (81.0-99.0); MEAN PLATELET VOLUME 7.2 FL (7.4-10.4); PLATELET COUNT 212 /CUMM (130-400); RBC DISTRIBUTION WIDTH 14.4 % (11.5-14.5); RED BLOOD CELL CT 3.68 /CUMM (4.20-5.40); WHITE BLOOD CELL COUNT 4.5 /CUMM (4.8-10.8)
--- NOTE | 2017-09-02 11:40 | Cons- Cardiology ---
General Information and HPI Consulting Request Date of Consult: 09/02/17 Requested By: Luisa Vela MD Reason for Consult: Possible endocarditis Source of Information: patient, old records Exam Limitations: no limitations History of Present Illness: This is a 52-year-old female with a past medical history of diabetes, opiate use disorder, chronic venous stasis, anxiety, depression. She was admitted a few days ago with lower extremities ulcers and infection. She has been followed in the wound clinic. She was found to have one positive blood culture with alpha strep and methicillin-resistant staph aureus. Her other blood cultures are negative so far. A transthoracic echocardiogram was read as essentially normal. A ASHKAN was requested to help determine length of antibiotic treatment and to definitively rule out endocarditis. Allergies/Medications Allergies: Coded Allergies: Sulfa (Sulfonamide Antibiotics) (Intermediate, RASH, BUT OK WITH BACTRIM ) cephalexin (From Keflex) (Intermediate, RASH/ANKLE SWELLING 06/11/16) influenza virus vaccine tv 2013-(18-49 yrs),rcmb (From Flublok) (Intermediate, RASH/SWELLING 06/11/16) pneumococcal vaccine (From Pneumovax 23) (Intermediate, RASH/SWELLING 06/11/16) acetaminophen (From Tylenol) (Severe, INCREASES LIVER ENZYMES 06/11/16) erythromycin base (Intermediate, GI UPSET 06/11/16) ibuprofen (Intermediate, GI UPSET 06/11/16) ketorolac (From Toradol) (Intermediate, GI UPSET 06/11/16) naproxen (Intermediate, GI UPSET 06/11/16) Home Med List: Dicyclomine HCl 20 MG TABLET 1 TAB PO TID GI (Reported) Duloxetine HCl (Cymbalta) 60 MG CAPSULE.DR 2 CAP PO QPM Depression (Reported) Furosemide (Lasix) 40 MG TABLET 1 TAB PO BID DIURETIC (Reported) Hydroxyzine Pamoate (Vistaril) 50 MG CAPSULE 2 CAP PO TID ANXIETY (Reported) Insulin Glargine,Hum.rec.anlog (Lantus Solostar) 100 UNIT/ML (3 ML) INSULN.PEN 10 UNIT SC QAM DM (Reported) Insulin Glargine,Hum.rec.anlog (Lantus Solostar) 100 UNIT/ML (3 ML) INSULN.PEN 15 UNITS SC QPM DM (Reported) Metformin HCl (Glucophage) 1,000 MG TABLET 1 TAB PO BID DM (Reported) Methadone HCl 10 MG/ML ORAL.CONC 85 MG PO DAILY CHRONIC PAIN (Reported) Pantoprazole Sodium 40 MG TABLET.DR 1 TAB PO DAILY AC GI (Reported) Potassium Chloride 10 MEQ TABLET.ER 1 TAB PO BID SUPPLEMENT (Reported) Quetiapine Fumarate 100 MG TABLET 1 TAB PO QAM MENTAL HEALTH (Reported) Quetiapine Fumarate (Seroquel) 100 MG TABLET 5 TAB PO QPM Depression ( Reported) Trazodone HCl 150 MG TABLET 2 TAB PO QHS SLEEP/MENTAL HEALTH (Reported) Current Medications: Current Medications Sig/Melody Start time Last Medication Dose Route Stop Time Status Admin Acetaminophen 650 MG .STK-MED ONE 09/01 1740 DC PO 09/01 1741 Acetaminophen 650 MG Q6P PRN 08/27 1730 AC PO Bisacodyl 10 MG Q12P PRN 08/30 1245 AC NY Bisacodyl 5 MG DAILY 08/30 1241 AC PO Dicyclomine HCl 20 MG TIDPRN PRN 08/27 1730 AC 09/01 PO 1801 Duloxetine HCl 120 MG QPM 08/27 2100 AC 09/01 PO 2119 Enoxaparin Sodium 40 MG DAILY 08/29 0900 AC 09/02 SC 1307 Fentanyl Citrate 0 .STK-MED ONE 09/02 1016 DC .ROUTE Furosemide 40 MG BID 08/27 2100 AC 09/02 PO 0948 Hydromorphone HCl 2 MG Q4 HRS NEEDED PRN 08/31 1730 AC 09/02 PO 1331 Hydroxyzine HCl 50 MG TID PRN 08/27 1730 AC 09/01 PO 0004 Insulin Aspart 0 TIDAC 09/02 1700 AC 09/02 SC 1306 Insulin Aspart 0 TIDAC 09/01 1700 DC SC Insulin Detemir 10 UNITS DAILY 08/28 0900 AC 09/02 SC 1307 Insulin Detemir 15 UNITS QPM 08/27 2100 AC 09/01 SC 2120 Insulin Human Regular 0 Q6 09/02 0600 DC 09/02 SC 0557 Lidocaine 0 .STK-MED ONE 09/02 0744 DC TOP Lorazepam 0.25 MG BID PRN 08/31 1740 AC 09/02 PO 09/06 1244 1307 Methadone HCl 85 MG DAILY 08/28 0900 AC 09/02 PO 0947 Nystatin 1 ROBERT TID 08/27 2129 AC 09/02 TOP 1308 Omeprazole 40 MG DAILY AC 08/27 1730 AC 09/02 PO 0546 Patient Medication 1 ED ONE ONE 09/01 1515 DC 09/01 Teaching ED 09/01 1516 1712 Polyethylene Glycol 17 GM DAILY 08/30 1241 AC PO Quetiapine Fumarate 500 MG QPM 08/27 2100 AC 09/01 PO 211 Ramelteon 8 MG QPM 08/27 2100 AC 09/01 PO 2119 Senna/Docusate Sodium 2 TAB DAILY 08/30 1241 AC PO Sodium Chloride 1,000 ML Q13H 08/31 1745 DC 09/01 IV 2304 Trazodone HCl 300 MG QPM 08/27 2100 AC 09/01 PO 211 Vancomycin HCl 1,250 MG BID 08/30 1400 DC 09/01 Sodium Chloride 250 ML IV 211 Wool Wax Alcohol 1 ROBERT DAILY 08/30 1735 09/02 TOP 1307 Review of Systems Review of Systems: "pain all over" Past History Travel History Traveled to [place] past 21 day No Medical History Blood Transfusion Hx: No Neurological: migraine EENT: NONE Cardiovascular: NONE Respiratory: pneumonia Gastrointestinal: colitis, diverticulitis, pancreatitis, ACID REFLUX C DIFF LA grade B esophagitis, erosive gastropathy Hepatic: NONE Renal: NONE Musculoskeletal: fibromyalgia, osteoarthritis Psychiatric: NARCOTIC ABUSE CHRONIC PAIN MANAGEMENT Endocrine: diabetes Blood Disorders: NONE Cancer(s): NONE 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 Home Services at Home: None Smoking Status: Never Smoked Exam & Diagnostic Data Vital Signs and I&O Vital Signs Date Time Temp Pulse Resp B/P B/P Pulse O2 O2 Flow FiO2 Mean Ox Delivery Rate 09/02 0800 95 Room Air 09/02 0608 98.4 90 22 116/82 95 Room Air 09/01 2213 97.8 97 18 116/64 94 Room Air 09/01 1528 Room Air Room Air 09/01 1437 97.5 98 18 110/72 94 Room Air Intake & Output 09/02 1600 09/02 0800 / 0000 09/01 1600 09/01 0800 09/01 0000 Intake Total 600 700 850 042 7084 Output Total 300 550 Balance 300 700 780 195 850 Intake, IV 600 300 75 600 Intake, Oral 700 480 120 800 Number 1 1 1 1 Bowel Movements Output, Urine 300 550 Physical Exam: Small obese white female, anxious but in no distress HEENT exam unremarkable Chest clear Heart regular rhythm, no murmurs Extremities wounds on both legs especially left Labs/Toby Results: Laboratory Tests 09/02 09/01 0735 0800 Chemistry Sodium (137 - 145 mmol/L) 142 143 Potassium (3.5 - 5.1 mmol/L) 3.7 3.8 Chloride (98 - 107 mmol/L) 97 L 97 L Carbon Dioxide (22 - 30 mmol/L) 34 H 34 H Anion Gap (5 - 16) 10 11 BUN (7 - 17 mg/dL) 11 9 Creatinine (0.5 - 1.0 mg/dL) 1.3 H 1.2 H Estimated GFR (>60 ml/min) 43 L 48 L BUN/Creatinine Ratio (7 - 25 %) 8.5 7.5 Total Bilirubin (0.2 - 1.3 mg/dL) 0.3 Direct Bilirubin (< 0.4 mg/dL) 0.2 AST (14 - 36 U/L) 50 H ALT (9 - 52 U/L) 38 Alkaline Phosphatase (<127 U/L) 122 Total Protein (6.3 - 8.2 g/dL) 7.2 Albumin (3.5 - 5.0 g/dL) 3.2 L Hematology CBC w Diff NO MAN DIFF REQ NO MAN DIFF REQ WBC (4.8 - 10.8 /CUMM) 4.5 L 5.4 RBC (4.20 - 5.40 /CUMM) 3.68 L 4.22 Hgb (12.0 - 16.0 G/DL) 9.4 L 11.0 L Hct (37 - 47 %) 29.1 L 33.3 L MCV (81.0 - 99.0 FL) 79.1 L 79.1 L MCH (27.0 - 31.0 PG) 25.6 L 26.0 L MCHC (33.0 - 37.0 G/DL) 32.3 L 32.9 L RDW (11.5 - 14.5 %) 14.4 14.1 Plt Count (130 - 400 /CUMM) 212 240 MPV (7.4 - 10.4 FL) 7.2 L 7.5 Gran % (42.2 - 75.2 %) 48.7 42.0 L Lymphocytes % (20.5 - 51.1 %) 37.4 46.4 Monocytes % (1.7 - 9.3 %) 8.5 7.3 Eosinophils % (0 - 5 %) 5.0 4.1 Basophils % (0.0 - 2.0 %) 0.4 0.2 Absolute Granulocytes (1.4 - 6.5 /CUMM) 2.2 2.3 Absolute Lymphocytes (1.2 - 3.4 /CUMM) 1.7 2.5 Absolute Monocytes (0.10 - 0.60 /CUMM) 0.4 0.4 Absolute Eosinophils (0.0 - 0.7 /CUMM) 0.2 0.2 Absolute Basophils (0.0 - 0.2 /CUMM) 0 0 Toxicology Vancomycin Trough (10.0 - 20.0 ug/mL) 32.6 H Diagnostic Data EKG Results None in chart CXR Results Not done Other Results Transthoracic echocardiogram essentially normal. CONCLUSIONS ASHKAN This is a normal transesophageal echocardiogram. All the valves are well seen and are normal with no evidence of valvular vegetations. There is physiological valvular regurgitation.There is minimal plaquing of the descending aorta. Israel Sánchez M.D. (Electronically Signed) Final Date: 02 September 2017 14:23 Assessment/Plan Assessment/Plan The patient is a 52-year-old female with one positive blood culture due to leg ulcers and infection. Transthoracic echocardiogram was negative for vegetations but ASHKAN was requested for definitive diagnosis. The ASHKAN was done this morning and was entirely within normal limits with no evidence of vegetations on any of the cardiac valves. This would indicate that the patient can have a shorter antibiotic course as per infectious disease. Consult Acknowledgment - Thank you for your consult request.
[2017-09-02 13:14] VITALS: BP 101/58
--- NOTE | 2017-09-02 14:24 | ECHOCARDIOGRAM REPORT ---
LES MOREL Age: 52 : Gender: F Exam Date: 09/02/2017 10:24 Exam Location: [place] Ht (in): 59 Wt (lb): 230 BSA: 2.15 BP: / Ordering Physician: Pierre Elizondo MD Referring Physician: Pierre Elizondo MD Technologist: Parrish Welch [facility] Room Number: 233-1 Indications: INFECTIVE ENDOCARDITIS Rhythm: Sinus Technical Quality: Good Medications Propofol administered by Anesthesiology. Ease of Transducer Insertion Complications None Technical Difficulty None FINDINGS Left Ventricle Normal left ventricular size, wall thickness and systolic function with no obvious regional wall motion abnormalities. The ejection fraction is visually estimated at >65 %. Right Ventricle The right ventricle is normal in size and function. Right Atrium The right atrium is normal in size. Left Atrium The left atrium is normal in size. LA Appendage Normal left atrial appendage. Normal pulmonary venous flow. IA Septum Normal interatrial septum. No shunting by color flow imaging. Mitral Valve The mitral valve is normal in structure and function. There is trace mitral regurgitation. Aortic Valve Structurally normal aortic valve without significant sclerosis or stenosis. There is no aortic regurgitation. Tricuspid Valve The tricuspid valve is normal in structure and function. There is trace tricuspid regurgitation. Pulmonic Valve Structurally normal pulmonic valve. There is no pulmonic regurgitation. Pericardium Normal pericardium without effusion. No pleural effusion. Great Vessels The descending aorta and aortic arch are well seen. There is minimal plaquing of the descending aorta. CONCLUSIONS This is a normal transesophageal echocardiogram. All the valves are well seen and are normal with no evidence of valvular vegetations. There is physiological valvular regurgitation.There is minimal plaquing of the descending aorta. Israel Sánchez M.D. (Electronically Signed) Final Date: 02 September 2017 14:23 MEASUREMENTS (Male / Female) Normal Values
--- NOTE | 2017-09-02 15:46 | PN- Infect Dx ---
Subjective Subjective: Afebrile. She continues to complain of pain in both legs and nausea. Objective Last 24 Hrs of Vital Signs/I&O Vital Signs Date Time Temp Pulse Resp B/P B/P Pulse O2 O2 Flow FiO2 Mean Ox Delivery Rate 09/02 1314 98.6 101 20 101/58 95 Room Air 09/02 0800 95 Room Air 09/02 0608 98.4 90 22 116/82 95 Room Air 09/01 2213 97.8 97 18 116/64 94 Room Air Intake & Output 09/02 1600 09/02 0800 09/02 0000 Intake Total 835 600 700 Output Total 500 300 Balance 335 300 700 Intake, IV 235 600 Intake, Oral 600 700 Number 2 1 Bowel Movements Output, Urine 500 300 Physical Exam Other Physical Findings: She appears comfortable in no acute distress Lungs are clear Heart regular rhythm with no murmur Abdomen is obese, soft, nontender with positive bowel sounds Extremities minimal erythema of both lower extremities, with no edema, tender to minimal palpation Results Last 24 Hours of Lab Results: Laboratory Tests 09/02 0735 Chemistry Sodium (137 - 145 mmol/L) 142 Potassium (3.5 - 5.1 mmol/L) 3.7 Chloride (98 - 107 mmol/L) 97 L Carbon Dioxide (22 - 30 mmol/L) 34 H Anion Gap (5 - 16) 10 BUN (7 - 17 mg/dL) 11 Creatinine (0.5 - 1.0 mg/dL) 1.3 H Estimated GFR (>60 ml/min) 43 L BUN/Creatinine Ratio (7 - 25 %) 8.5 Hematology CBC w Diff NO MAN DIFF REQ WBC (4.8 - 10.8 /CUMM) 4.5 L RBC (4.20 - 5.40 /CUMM) 3.68 L Hgb (12.0 - 16.0 G/DL) 9.4 L Hct (37 - 47 %) 29.1 L MCV (81.0 - 99.0 FL) 79.1 L MCH (27.0 - 31.0 PG) 25.6 L MCHC (33.0 - 37.0 G/DL) 32.3 L RDW (11.5 - 14.5 %) 14.4 Plt Count (130 - 400 /CUMM) 212 MPV (7.4 - 10.4 FL) 7.2 L Gran % (42.2 - 75.2 %) 48.7 Lymphocytes % (20.5 - 51.1 %) 37.4 Monocytes % (1.7 - 9.3 %) 8.5 Eosinophils % (0 - 5 %) 5.0 Basophils % (0.0 - 2.0 %) 0.4 Absolute Granulocytes (1.4 - 6.5 /CUMM) 2.2 Absolute Lymphocytes (1.2 - 3.4 /CUMM) 1.7 Absolute Monocytes (0.10 - 0.60 /CUMM) 0.4 Absolute Eosinophils (0.0 - 0.7 /CUMM) 0.2 Absolute Basophils (0.0 - 0.2 /CUMM) 0 Toxicology Vancomycin Trough (10.0 - 20.0 ug/mL) 32.6 H Last 24 Hours of Toby Results: Blood cultures August 29 negative Blood cultures August 31 negative Recent Imaging Studies: ASHKAN, performed this morning, was negative for any vegetations Assessment/Plan ID Impression: Stable, with temperatures and white blood cell count remaining normal, on Vancomycin, Day 3 of treatment for MRSA bacteremia, presumably secondary to her bilateral lower extremity cellulitis. She underwent a ASHKAN earlier today, which was negative; therefore she should only require a 2 week course of Vancomycin. Her Vancomycin trough level is elevated and her dose will need to be adjusted. Suggestion: 1. Would proceed with placement of a PICC 2. Decrease Vancomycin to 1250 mg IV every 24 hours for a total of 2 weeks of treatment (until September 13)
[2017-09-02 22:44] VITALS: BP 92/50
--- NOTE | 2017-09-03 07:14 | PN- Housestaff ---
See Addendum Subjective Follow-up For: MRSA bacteremia Cellulitis Subjective: Patient seen and examined. Still complains of persistent abdominal and leg pain. Takes Bentyl at home which provides some relief but does not wish to take it currently. Review of Systems Constitutional: Reports: no symptoms. Objective Last 24 Hrs of Vital Signs/I&O Vital Signs Date Time Temp Pulse Resp B/P B/P Pulse O2 O2 Flow FiO2 Mean Ox Delivery Rate 09/02 2244 98.3 106 20 92/50 94 Room Air 09/02 1600 Room Air 09/02 1314 98.6 101 20 101/58 95 Room Air 09/02 0800 95 Room Air Intake & Output 09/03 0800 09/03 0000 09/02 1600 Intake Total 600 835 Output Total 500 Balance 600 335 Intake, IV 235 Intake, Oral 600 600 Number 1 2 Bowel Movements Output, Urine 500 Physical Exam General Appearance: Alert, Oriented X3, Cooperative, Mild Distress Skin: No Rashes, No Breakdown Skin Temp/Moisture Exam: Warm/Dry Sepsis Skin Exam (color): Normal for Ethnicity HEENT: Atraumatic Cardiovascular: Normal S1, Normal S2, No Murmurs Lungs: Clear to Auscultation, Normal Air Movement Abdomen: Soft, RUQ tenderness Neurological: Normal Speech Extremities: healed ulcers. Mild erythema of lower extremities Last 24 Hrs of Lab/Toby Results Last 24 Hrs of Labs/Mics: Laboratory Tests 09/03/17 0733: Anion Gap 10, Estimated GFR 43 L, BUN/Creatinine Ratio 10.8, CBC w Diff NO MAN DIFF REQ, RBC 3.93 L, MCV 79.1 L, MCH 25.8 L, MCHC 32.6 L, RDW 14.3, MPV 7.4 , Gran % 54.5, Lymphocytes % 32.9, Monocytes % 8.7, Eosinophils % 3.5, Basophils % 0.4, Absolute Granulocytes 2.7, Absolute Lymphocytes 1.6, Absolute Monocytes 0.4, Absolute Eosinophils 0.2, Absolute Basophils 0 Assessment/Plan Assessment: 52-year-old female with past medical history significant for diabetes, opiate use disorder, on methadone, chronic venous stasis follows with Dr Albarran, anxiety, depression, GERD and chronic back pain who presented to the ED with complains of abdominal pain and lower extremity ulcers. Assessment: 1. Bilateral lower extremity ulcers with cellulitis 2. DIPESH 3. Elevated Lactic Acid - resolved 4. History of diabetes 5. History of opiate use on methadone 6. Abdominal Pain - Chronic 7. Transaminits - resolved 8. MRSA Bacteremia Plan: * Continue IV Vancomycin for MRSA bactermia * Repeat Blood cultures x 2 - negative so far. * TTE and ASHKAN did not reveal any signs of endocarditis. * PICC line placed. She [facility] need [facility] for IV Vancomycin administration. * Stable to be discharged today. * U/S of right lower extremity showed extensive cutaneous and subcutaneous soft tissue edema with no drainable collection. * Continue leg elevation. * Her Cr is continues to be elevated. Encourage PO hydration. * Her abdominal pain is of unclear etiology. She does state it is chronic in nature. Continue supportive care and continue her home medication bentyl as needed. * Transaminitis has resolved. No need to further monitor. * Wound care with daily cleansing and Xeroform dressings. * Insulin SS with Accucheks * Levemir 15 units pm and 10 units am (home dose) * Continue Methadone 85mg daily. * Diet: Regular * DVT Prophylaxis: SC Lovenox * Code: Full Code Problem List: 1. MRSA bacteremia Pain Ratin Pain Location: none Pain Goal: Remain pain free Pain Plan: none Tomorrow's Labs & Rationales: none
[2017-09-03] MEDS ORDERED: VANCOMYCIN HCL1 G1 IV ×2 (07:25→11:27)
[2017-09-03 08:00] VITALS: BP 114/70
[2017-09-03 08:25] LABS: ABSOLUTE BASOPHIL COUNT 0 /CUMM (0.0-0.2); ABSOLUTE EOSINOPHIL COUNT 0.2 /CUMM (0.0-0.7); ABSOLUTE GRANULOCYTE CT 2.7 /CUMM (1.4-6.5); ABSOLUTE LYMPH COUNT 1.6 /CUMM (1.2-3.4); ABSOLUTE MONOCYTE COUNT 0.4 /CUMM (0.10-0.60); BASOPHIL % 0.4 % (0.0-2.0); EOSINOPHIL % 3.5 % (0-5); GRANULOCYTE % 54.5 % (42.2-75.2); HEMATOCRIT 31.1 % (37-47); MEAN CORPUSCULAR HGB 25.8 PG (27.0-31.0); MEAN CORPUSCULAR HGB CONC 32.6 G/DL (33.0-37.0); MEAN CORPUSCULAR VOLUME 79.1 FL (81.0-99.0); MEAN PLATELET VOLUME 7.4 FL (7.4-10.4); PLATELET COUNT 225 /CUMM (130-400); RBC DISTRIBUTION WIDTH 14.3 % (11.5-14.5); RED BLOOD CELL CT 3.93 /CUMM (4.20-5.40); WHITE BLOOD CELL COUNT 4.9 /CUMM (4.8-10.8)
--- NOTE | 2017-09-03 10:53 | PN- Wound Care ---
Subjective Subjective: Patient is status post PICC line for prolonged IV vancomycin. Left lower extremity venous stasis ulcers healed. Objective Vital Signs and I&Os Vital Signs Result Date Time Pulse Ox 95 09/03 0800 B/P 114/70 09/03 0800 O2 Delivery Room Air 09/03 0800 Temp 98.2 09/03 0800 Pulse 102 09/03 0800 Resp 18 09/03 0800 O2 Flow Rate Room Air 09/01 1528 Intake & Output 09/03 0000 09/02 1600 09/02 0800 Intake Total 600 835 600 Output Total 500 300 Balance 600 335 300 Intake, IV 235 600 Intake, Oral 600 600 Number 1 2 1 Bowel Movements Output, Urine 500 300 Lower extremity ulcer is healed to a area of 0.4 x 0.4 cm with red fill. Impression/Plan Impression/Plan Impression/Plan: 52-year-old woman with venous insufficiency and venous stasis ulcers admitted with MRSA cellulitis. Her wounds have markedly improved with bedrest left healed and right is markedly improved. Continue wound cleansing leg elevation Xeroform daily.
--- NOTE | 2017-09-03 11:12 | ULTRASOUND REPORT ---
CLINICAL HISTORY: This patient is a 52 years old female with a history of osteomyelitis, who presents to Interventional Radiology for placement of a double lumen PICC for central venous access. PROCEDURES: 1. Real-time ultrasound-guided access into the left basilic vein after documentation of selected vessel patency, and permanent imaging storing in the patient records. 2. Placement of a PICC. PHYSICIANS: Dr. Lorri Rich (attending). MEDICATIONS: Lidocaine 1%, 1 mL SQ. CONTRAST: None FLUOROSCOPY TIME: 1.2 minutes DAP: 910 uGym2 COMPLICATIONS: None ESTIMATED BLOOD LOSS: Scant SPECIMENS: None IMPLANT: 6 Filipino double lumen power PICC SITE MARKING: As part of the preprocedure verification policy, a site marking procedure was initiated. Due to the nature the procedure, the insertion site could not be predetermined thus invoking the policy of exemption to site laterality and marking. Insertion site marking was performed in the procedure room in conjunction with imaging confirmation. PROCEDURE NOTE: Informed consent was obtained from the patient prior to the procedure. During this process, the procedure and potential alternatives were explained along with the intended outcome and benefits. The risks of the procedure, including the possibility of an unsuccessful procedure, as well as the risk of not doing the procedure, were discussed. The patient was given the opportunity to ask questions regarding the procedure and appeared competent to make decisions. A signed consent form documenting this discussion was placed in the medical record. A time-out procedure was performed. The patient was placed supine on the fluoroscopy table. Prior to prepping the patient, a limited sonogram of the left arm was performed to choose appropriate access, and this arm was prepped and draped in the usual sterile fashion. All elements of maximal sterile barrier technique followed including use of cap, mask, sterile gown, sterile gloves, a sterile full body drape and hand hygiene. Also followed skin preparation with 2% chlorhexidine for cutaneous antisepsis, and sterile ultrasound preparation with sterile gel and probe cover when applicable. Venous access was achieved into the left basilic vein using ultrasound and fluoroscopic guidance. The 0.018 measuring wire from the PICC was advanced into the cavoatrial junction. The needle was removed and replaced with the peel away sheath. The intravascular length was measured and the catheter was trimmed to the correct length. The inner dilator was removed and the PICC was advanced over the wire into the cavoatrial junction. The peel away sheath and wire were removed. The catheter was tested successfully and secured to the skin with its tip in the cavoatrial junction. A spot image was taken. The patient tolerated the procedure well. FINDINGS: 1. Patent left basilic vein. 2. Successful placement of a 6-Fr double lumen PICC that measures 42 cm in length. IMPRESSION: Successful placement of a PICC. PLAN: 1. The patient was stable after the procedure and was transferred to the interventional recovery area. The patient will be transferred to the floor. 2. The catheter may be used immediately.
--- NOTE | 2017-09-03 14:06 | PN- Infect Dx ---
Subjective Subjective: Afebrile. She continues to complain of pain in the right upper quadrant and both lower extremities Objective Last 24 Hrs of Vital Signs/I&O Vital Signs Date Time Temp Pulse Resp B/P B/P Pulse O2 O2 Flow FiO2 Mean Ox Delivery Rate 09/03 1254 Room Air Room Air 09/03 0800 98.2 102 18 114/70 95 Room Air 09/02 2244 98.3 106 20 92/50 94 Room Air 09/02 1600 Room Air Intake & Output 09/03 1600 09/03 0800 09/03 0000 Intake Total 450 600 Output Total Balance 450 600 Intake, Oral 450 600 Number 1 2 1 Bowel Movements Physical Exam Other Physical Findings: She appears comfortable in no acute distress Abdomen is obese, soft, tender on palpation over the right side of her abdomen, with no guarding or rebound, positive bowel sounds Extremities decreased erythema of both lower extremities, exquisitely tender to palpation, right greater than left, with no edema; PICC in place in the left upper extremity Results Last 24 Hours of Lab Results: Laboratory Tests 09/03 0733 Chemistry Sodium (137 - 145 mmol/L) 141 Potassium (3.5 - 5.1 mmol/L) 3.8 Chloride (98 - 107 mmol/L) 95 L Carbon Dioxide (22 - 30 mmol/L) 35 H Anion Gap (5 - 16) 10 BUN (7 - 17 mg/dL) 14 Creatinine (0.5 - 1.0 mg/dL) 1.3 H Estimated GFR (>60 ml/min) 43 L BUN/Creatinine Ratio (7 - 25 %) 10.8 Hematology CBC w Diff NO MAN DIFF REQ WBC (4.8 - 10.8 /CUMM) 4.9 RBC (4.20 - 5.40 /CUMM) 3.93 L Hgb (12.0 - 16.0 G/DL) 10.1 L Hct (37 - 47 %) 31.1 L MCV (81.0 - 99.0 FL) 79.1 L MCH (27.0 - 31.0 PG) 25.8 L MCHC (33.0 - 37.0 G/DL) 32.6 L RDW (11.5 - 14.5 %) 14.3 Plt Count (130 - 400 /CUMM) 225 MPV (7.4 - 10.4 FL) 7.4 Gran % (42.2 - 75.2 %) 54.5 Lymphocytes % (20.5 - 51.1 %) 32.9 Monocytes % (1.7 - 9.3 %) 8.7 Eosinophils % (0 - 5 %) 3.5 Basophils % (0.0 - 2.0 %) 0.4 Absolute Granulocytes (1.4 - 6.5 /CUMM) 2.7 Absolute Lymphocytes (1.2 - 3.4 /CUMM) 1.6 Absolute Monocytes (0.10 - 0.60 /CUMM) 0.4 Absolute Eosinophils (0.0 - 0.7 /CUMM) 0.2 Absolute Basophils (0.0 - 0.2 /CUMM) 0 Last 24 Hours of Toby Results: Blood cultures August 29 negative Blood cultures August 31 negative Assessment/Plan ID Impression: Stable, with temperatures and white blood cell count remaining normal, on Vancomycin, Day 4 of treatment for MRSA bacteremia, presumably secondary to her bilateral lower extremity cellulitis. As her ASHKAN was negative she should only require a 2 week course of Vancomycin. Suggestion: 1. Continue Vancomycin to complete a 2 week course of treatment (until September 13) 2. Would check a CBC, BUN/creatinine and Vancomycin trough level on September 08
[2017-09-03 14:40] VITALS: BP 110/62
[2017-09-03 14:49] VITALS: BP 110/62
[2017-09-03] MEDS ORDERED: HYDROMORPHONE HC2 M1 PO (15:05)
== END 2017-09-03 17:15 | DRG 724 ==
LOC: ERH 09:23 → ERHI 16:32 → 2NA 16:32 → ENRESERV 17:10 → CANRESERV 17:10 → ENRESERV 18:46 → ENTRNSPT 19:27 → EDTRNSPTSTS 19:38 → 2NA 19:46 → CMPTRNSPT 20:03 → 2NA 08-28 13:34
PROVIDERS: Internal Medicine; Physician Assistant; Student in an Organized Health Care Education/Training Program
PROC: B24BZZ4 Ultrasonography of Heart with Aorta, Transesophageal (ICD-10-PCS; principal; 2017-09-02)
PROC: 02HV33Z Insertion of Infusion Device into Superior Vena Cava, Percutaneous Approach (ICD-10-PCS; 2017-09-03)
PROC: B5181ZA Fluoroscopy of Superior Vena Cava using Low Osmolar Contrast, Guidance (ICD-10-PCS; 2017-09-03)
DX: R78.81 Bacteremia (principal); L03.116 Cellulitis of left lower limb; L03.115 Cellulitis of right lower limb; E11.9 Type 2 diabetes mellitus without complications; Z79.4 Long term (current) use of insulin; E87.2 Acidosis; F11.20 Opioid dependence, uncomplicated; E66.01 Morbid (severe) obesity due to excess calories; Z68.41 Body mass index [BMI] 40.0-44.9, adult; I83.012 Varicose veins of right lower extremity with ulcer of calf; I83.022 Varicose veins of left lower extremity with ulcer of calf; L97.219 Non-pressure chronic ulcer of right calf with unspecified severity; L97.229 Non-pressure chronic ulcer of left calf with unspecified severity; B95.62 Methicillin resistant Staphylococcus aureus infection as the cause of diseases classified elsewhere; F41.9 Anxiety disorder, unspecified; F32.9 Major depressive disorder, single episode, unspecified; K21.9 Gastro-esophageal reflux disease without esophagitis; Z88.6 Allergy status to analgesic agent; Z88.1 Allergy status to other antibiotic agents; Z88.2 Allergy status to sulfonamides; Z88.7 Allergy status to serum and vaccine; Z88.8 Allergy status to other drugs, medicaments and biological substances; Z90.49 Acquired absence of other specified parts of digestive tract; Z90.710 Acquired absence of both cervix and uterus; Z91.14 Patient's other noncompliance with medication regimen; N17.9 Acute kidney failure, unspecified; R74.0 Nonspecific elevation of levels of transaminase and lactic acid dehydrogenase [LDH]
CPT/HCPCS: 2NAP; 87184; 36592; 73590-LT; 73590-RT; 74177; 76881; 77001; 81003; 82436; 87040; 87070; 87071; 87147; 93306; 93325; 96374; 96375; C1769; J1642; J1644; J1650; J1815; J2001; J2405; J3370; J7040; J7042